=== PATIENT | male | born 1935 | race Caucasian/White ===

== ENCOUNTER 2018-07-08 19:02 | Emergency (ER) | payer OTHER ==
--- NOTE | 2018-07-08 19:46 | ER Document Report ---
ED Medical Screen (RME) - General Chief Complaint: General Weakness Stated Complaint: WEAKNESS Time Seen by Provider: 07/08/18 19:38 Notes: 82-year-old male with chief complaint of feeling weak and sluggish, also states that he is having bleeding from the penis with passage of clots, he has been doing this for some time but it has worsened recently, was diagnosed with possible tumor and stone by Dr. Reaves, urology in [place]. Denies fever, vomiting, specific area of pain. Denies focal numbness or weakness, denies headache. He is on blood thinner with Brilinta, history of CAD, hypertension, hyperlipidemia, prostate cancer. TRAVEL OUTSIDE OF THE U.S. IN LAST 30 DAYS: No - Related Data Allergies/Adverse Reactions: No Known Allergies Allergy (Unverified 07/08/18 19:04) Physical Exam - Vital signs Vitals: Temp Pulse Resp BP Pulse Ox 98.2 F 76 16 119/36 L 95 07/08/18 19:16 07/08/18 19:16 07/08/18 19:16 07/08/18 19:16 07/08/18 19:16 - General General appearance: Appears well - slightly pale, but otherwise well appearing In distress: None - Cardiovascular Rhythm: Regular. No: Extrasystoles, Tachycardia Heart sounds: Normal auscultation, S1 appreciated, S2 appreciated Murmur: Yes - Neurological Cognition: Normal Orientation: AAOx4 Jwuan Coma Scale Eye Opening: Spontaneous Juwan Coma Scale Verbal: Oriented Juwan Coma Scale Motor: Obeys Commands Juwan Coma Scale Total: 15 Speech: Normal Additional motor exam normals: Equal steam table attendant Course - Vital Signs Vital signs: Temp Pulse Resp BP Pulse Ox 98.2 F 76 16 119/36 L 95 07/08/18 19:16 07/08/18 19:16 07/08/18 19:16 07/08/18 19:16 07/08/18 19:16
--- NOTE | 2018-07-08 20:53 | RADIOLOGY REPORT (SQ) ---
EXAM DESCRIPTION: XR CHEST 1 VIEW COMPLETED DATE/TME: 07/08/2018 19:42 CLINICAL HISTORY: 82 years, Male, weakness COMPARISON: None. NUMBER OF VIEWS: One TECHNIQUE: PA view of the chest LIMITATIONS: None. FINDINGS: Cardiomediastinal silhouette is within normal limits. No lung consolidate. No pleural effusion. No pneumothorax. Vascular calcifications at the thoracic aorta. Chronic appearing right lateral 4th - 6th rib fractures. IMPRESSION: No acute chest finding. copyright 2010 [employer]- All Rights Reserved
[2018-07-08 21:10] LABS: HEMATOCRIT 16.7 % (37.9-51.0); MEAN CORPUSCULAR HEMOGLOBIN 31.8 pg (27.0-33.4); MEAN CORPUSCULAR HGB CONC 33.8 g/dL (32.0-36.0); MEAN CORPUSCULAR VOLUME 94 fl (80-97); PLATELET COUNT 358 10^3/uL (150-450); RED BLOOD COUNT 1.77 10^6/uL (4.35-5.55); RED CELL DISTRIBUTION WIDTH 15.4 % (11.5-14.0); WHITE BLOOD COUNT 10.6 10^3/uL (4.0-10.5)
[2018-07-08 21:31] LABS: ALANINE AMINOTRANSFERASE 26 U/L (21-72); ALBUMIN 3.5 g/dL (3.5-5.0); ALKALINE PHOSPHATASE 54 U/L (38-126); ANION GAP 12 (5-19); ASPARTATE AMINO TRANSFERASE 28 U/L (17-59); BILIRUBIN,DIRECT 0.2 mg/dL (0.0-0.4); BILIRUBIN,TOTAL 0.3 mg/dL (0.2-1.3); BLOOD UREA NITROGEN 38 mg/dL (7-20); CALCIUM 8.5 mg/dL (8.4-10.2); CARBON DIOXIDE 23 mmol/L (22-30); CHLORIDE 90 mmol/L (98-107); GLUCOSE 135 mg/dL (75-110); POTASSIUM 3.8 mmol/L (3.6-5.0); TOTAL PROTEIN 5.7 g/dL (6.3-8.2)
[2018-07-08 21:41] LABS: ABSOLUTE LYMPHOCYTES# (MANUAL) 2.3 10^3/uL (0.5-4.7); ABSOLUTE MONOCYTES # (MANUAL) 1.2 10^3/uL (0.1-1.4); ABSOLUTE NEUTROPHILS# (MANUAL) 7.1 10^3/uL (1.7-8.2); ANISOCYTOSIS SLIGHT; BASOPHILS % (MANUAL) 0 % (0-2); EOSINOPHILS % (MANUAL) 0 % (0-6); LYMPHOCYTES % (MANUAL) 22 % (13-45); MONOCYTES % (MANUAL) 11 % (3-13); PLATELET COMMENT ADEQUATE; SEGMENTED NEUTROPHILS % (MAN) 67 % (42-78); TOTAL CELLS COUNTED 100; TOXIC GRANULATION SLIGHT
[2018-07-08 21:43] LABS: HEMOGLOBIN 5.6 g/dL (13.5-17.0)
[2018-07-08 21:52] LABS: BILIRUBIN,URINE NEGATIVE (NEGATIVE); GLUCOSE, URINE 50 mg/dL (NEGATIVE); KETONES,URINE NEGATIVE (NEGATIVE); LEUKOCYTE ESTERASE,URINE TRACE (NEGATIVE); NITRITE,URINE NEGATIVE (NEGATIVE); PROTEIN,URINE 100 mg/dL (NEGATIVE); URINE SPECIFIC GRAVITY 1.018; UROBILINOGEN,URINE NEGATIVE mg/dL (<2.0)
[2018-07-08 21:53] LABS: COLOR,URINE RED
[2018-07-08 21:54] LABS: APPEARANCE,URINE TURBID
--- NOTE | 2018-07-08 22:02 | ER Document Report ---
ED General - General Chief Complaint: General Weakness Stated Complaint: WEAKNESS Time Seen by Provider: 07/08/18 19:38 Primary Care Provider: PATRIC HERNANDES NP [Primary Care Provider] - Follow up as needed Notes: Patient is a 82-year-old male with history of prostate cancer presents with hematuria and weakness. He had a surgery on his prostate in [place]. He then moved down here. He recently the procedure performed by Dr. Reaves at [facility]. He says they did a sounds to be cystoscopy with either biopsy or scraping in the bladder. Since then he says is been having bleeding. He is on Brilinta. He takes Brilinta due to history of coronary stents. Last stent was placed over 2 years ago. Patient is been passing large amounts of blood clots in his urine today. TRAVEL OUTSIDE OF THE [place].S. IN LAST 30 DAYS: No - Related Data Allergies/Adverse Reactions: No Known Allergies Allergy (Verified 07/08/18 19:44) Past Medical History - Social History Smoking Status: Unknown if Ever Smoked Frequency of alcohol use: None Drug Abuse: None Family History: Reviewed & Not Pertinent Patient has suicidal ideation: No Patient has homicidal ideation: No Renal/ Medical History: Denies: Hx Peritoneal Dialysis Review of Systems - Review of Systems Notes: My Normal Review Basic REVIEW OF SYSTEMS: CONSTITUTIONAL : This EENT: Denies eye, ear, throat, or mouth pain or symptoms. Denies nasal or sinus congestion. CARDIOVASCULAR: Denies chest pain. RESPIRATORY: Denies cough, cold, or chest congestion. Denies shortness of breath, difficulty breathing, or wheezing. GASTROINTESTINAL: Denies abdominal pain. Denies nausea, vomiting, or diarrhea. GENITOURINARY: Dysuria MUSCULOSKELETAL: Denies neck or back pain or joint pain or swelling. SKIN: Denies rash or skin lesions. HEMATOLOGIC : On blood thinning medication NEUROLOGICAL: Some altered mental status. Denies headache. Denies weakness or paralysis or loss of use of either side. Denies problems with gait or speech. Denies sensory or motor loss. ALL OTHER SYSTEMS REVIEWED AND NEGATIVE. Physical Exam - Vital signs Vitals: Temp Pulse Resp BP Pulse Ox 98.2 F 76 16 119/36 L 95 07/08/18 19:16 07/08/18 19:16 07/08/18 19:16 07/08/18 19:16 07/08/18 19:16 - Notes Notes: General Appearance: Well nourished, alert, cooperative, no acute distress, no obvious discomfort. Vitals: reviewed, See vital signs table. Head: no swelling or tenderness to the head Eyes: PERRL, EOMI, Conjuctiva clear Mouth: No decreasd moisture Lungs: No wheezing, No rales, No rhonci, No accessory muscle use, good air exchange bilaterally. Heart: Normal rate, Regular rythm, No murmur, no rub Abdomen: Normal BS, soft, No rigidity, No abdominal tenderness, No guarding, no rebound, no abdominal masses, no organomegaly Extremities: strength 5/5 in all extremities, good pulses in all extremities, no swelling or tenderness in the extremities, no edema. Skin: warm, dry, very pale. Neuro: speech clear, oriented x 3, normal affect, responds appropriately to q uestions. Course - Re-evaluation Re-evalutation: 07/08/18 23:47 07/09/18 00:40 07/09/18 00:40 I spoke with physician registered dental assistant rda for urology, Amanda. She agrees to accept the patient on behalf of Dr. Atwood. Family informed. Patient is receiving blood transfusions. Patient vital signs have remained stable. Transport is on his way. Patient continues to do well and is stable for transport. Dictation of this chart was performed using voice recognition software; therefore, there may be some unintended grammatical errors. - Vital Signs Vital signs: Temp Pulse Resp BP Pulse Ox 98.2 F 76 23 H 146/54 H 98 07/08/18 19:16 07/08/18 19:16 07/09/18 00:00 07/08/18 23:01 07/09/18 00:00 - Laboratory Result Diagrams: 07/08/18 20:05 07/08/18 20:05 Laboratory results interpreted by me: 07/08/18 07/08/18 07/08/18 20:05 20:05 20:05 WBC 10.6 H RBC 1.77 L Hgb 5.6 L Hct 16.7 L RDW 15.4 H Sodium 125.0 L Chloride 90 L BUN 38 H Glucose 135 H Total Protein 5.7 L Urine Protein 100 H Urine Glucose (UA) 50 H Urine Blood LARGE H Ur Leukocyte Esterase TRACE H Urine Ascorbic Acid 20 H Crossmatch 07/08/18 20:05 WBC RBC Hgb Hct RDW Sodium Chloride BUN Glucose Total Protein Urine Protein Urine Glucose (UA) Urine Blood Ur Leukocyte Esterase Urine Ascorbic Acid Crossmatch See Detail - EKG Interpretation by Me Additional EKG results interpreted by me: 07/08/18 22:01 Is reviewed and interpreted by me. EKG shows sinus rhythm with a rate of 81 bpm. She does have a left bundle branch block. DE interval is within normal range. QRS duration QT intervals are prolonged. 07/08/18 22:02 Critical Care Note - Critical Care Note Total time excluding time spent on procedures (mins): 45 Comments: Vertical care time for this patient not including time spent in procedures approximately 45 minutes due to treatment of hematuria with severe anemia and need for transfusion. Discharge - Discharge Clinical Impression: Pyuria Hematuria Qualifiers: Hematuria type: gross Qualified Code(s): R31.0 - Gross hematuria Anemia Qualifiers: Anemia type: unspecified type Qualified Code(s): D64.9 - Anemia, unspecified Condition: Stable Disposition: [facility] Referrals: PATRIC HERNANDES NP [Primary Care Provider] - Follow up as needed
[2018-07-08] MEDS ORDERED: NORMAL SALINE 250 ML IV PRN (22:10)
[2018-07-08] MEDS ORDERED: CEFTRIAXONE INJ 1000 MG VIAL IV ONE (22:15)
[2018-07-08 23:17] LABS: INTERNATIONAL RATION (INR) 1.06; PROTHROMBIN TIME 14.3 SEC (11.4-15.4)
[2018-07-08 23:18] LABS: PARTIAL THROMBOPLASTIN TIME 25.6 SEC (23.5-35.8)
[2018-07-08] MEDS ORDERED: LIDOCAINE 2% URO-JET 5 ML KIT MM ONE (23:43)
[2018-07-09 03:14] VITALS: BP 140/64
--- NOTE | 2018-07-09 20:09 | EKG REPORT ---
SEVERITY:- ABNORMAL ECG - SINUS RHYTHM LEFT BUNDLE BRANCH BLOCK : Confirmed by: Poly Briseno 09-Jul-2018 20:08:54
== END 2018-07-09 01:40 | disposition short-term general hospital (02) ==
LOC: ER 19:02
DX: N39.0 Urinary tract infection, site not specified (principal); R31.0 Gross hematuria; D64.9 Anemia, unspecified; I44.7 Left bundle-branch block, unspecified; R53.1 Weakness; R41.82 Altered mental status, unspecified; Z79.02 Long term (current) use of antithrombotics/antiplatelets; Z95.5 Presence of coronary angioplasty implant and graft; Z85.46 Personal history of malignant neoplasm of prostate; Z98.890 Other specified postprocedural states
CPT/HCPCS: 93005; 99285; 96365; 96366; 86900; 86901; 36415; 87040; 87086; 36430; 86850; 85025; 85610; 85730; 80053; 81001; 84484; 86920; 71045; 93010; P9017; P9016; J0696; A9270; J3490

== ENCOUNTER → 2018-08-09 | Outpatient (CLI) | payer OTHER ==
--- NOTE | 2018-08-10 10:11 | RADIOLOGY REPORT (SQ) ---
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 RADIONUCLIDE AND DOSE: 10 mCi F18 FDG The route of agent administration: Intravenous FASTING BLOOD SUGAR: 93 mg/dl CONTRAST TYPE AND DOSE: No CT contrast given. TECHNIQUE: Blood glucose level was verified. Above dose of FDG was injected intravenously. 2-D seg mented attenuation correction images were obtained from the base of the skull to the midthighs. Nonc ontrast CT images were obtained for attenuation correction and fusion with emission images. CT image s were performed without oral or intravenous contrast and are not sensitive for parenchymal lesions. A series of overlapping emission PET images were obtained. [facility] by the radiologist. Images stored on PACS. LIMITATIONS: None. FINDINGS: HEAD AND NECK: No areas of abnormal metabolic activity in the soft tissues of the head and neck. CHEST: No areas of abnormal metabolic activity in the chest. ABDOMEN AND PELVIS: No areas of abnormal metabolic activity in the abdomen or pelvis. Expected physi ologic activity is present in the genitourinary system and bowel. Activity in the pelvis is limited to excreted urinary activity in the bladder lumen. No focal soft tissue mass and no extension into t he pelvic tissues. PROXIMAL LOWER EXTREMITIES: No areas of abnormal metabolic activity in the soft tissues of the lower extremities. BONES: No abnormal metabolic activity in the visualized skeleton. ADDITIONAL CT FINDINGS: Colonic diverticulosis. No additional significant findings on the noncontras t CT images. OTHER: Background blood pool activity mean SUV 1.85. Background liver activity mean SUV 2.48. No ot her significant findings. IMPRESSION: UNREMARKABLE PET-CT. PATIENT WITH KNOWN MALIGNANCY OF THE BLADDER AND PREVIOUS PROSTATE CARCINOMA. ACTIVITY IN THE PELVIS IS LIMITED TO EXPECTED EXCRETED ACTIVITY WITHIN THE BLADDER LUMEN . NO FOCAL SOFT TISSUE ACTIVITY OR EVIDENCE OF LOCAL SPREAD INTO THE PELVIC TISSUES. NO EVIDENCE OF DISTANT METASTASES. TECHNICAL DOCUMENTATION: JOB ID: [id number] [employer]- All Rights Reserved Reading location - IP/workstation name: [email or web address]
== END ==
LOC: RAD 17:32
PROVIDERS: ATTEND Urology
DX: C68.0 Malignant neoplasm of urethra (principal); Z85.46 Personal history of malignant neoplasm of prostate
CPT/HCPCS: 78815; A9552

== ENCOUNTER 2018-09-28 10:13 | Emergency (ER) | payer OTHER ==
--- NOTE | 2018-09-28 10:49 | ER Document Report ---
ED Medical Screen (RME) - General Chief Complaint: Urinary Problem Stated Complaint: BLOOD IN URINE Time Seen by Provider: 09/28/18 10:42 Primary Care Provider: CELIA LOYOLA MD [Primary Care Provider] - Follow up as needed Mode of Arrival: Ambulatory Information source: Patient TRAVEL OUTSIDE OF THE U.S. IN LAST 30 DAYS: No - HPI Patient complains to provider of: HEMATURIA Notes: 09/28/18 10:48 Patient is here with complaint of hematuria. Patient has a history of bladder cancer. Is been having hematuria for the last 5 days. He denies any pain. He has passed some clots. He was able to urinate this morning, he states it was all blood, no clots. He denies any pain. He denies any chest pain or shortness of breath. He does have a history of being anemic, but states that the last time they checked his hemoglobin he was up to 11. He denies any other complaints at this time. Exam Nontoxic, no distress. Patient is very pale. Systolic murmur. Lung sounds normal. No abdominal tenderness on limited triage abdominal exam. Plan CBC, CMP, coags, urine. An initial examination was made on the patient as part of the triage process, and it was determined a more comprehensive evaluation was necessary. Initial labs were ordered and patient was transferred to another provider in the ED who assumed care and finished evaluation and plan. - Related Data Allergies/Adverse Reactions: No Known Allergies Allergy (Verified 07/08/18 19:44) Past Medical History - Social History Chew tobacco use (# tins/day): No Frequency of alcohol use: None Drug Abuse: None Renal/ Medical History: Denies: Hx Peritoneal Dialysis Physical Exam - Vital signs Vitals: Temp Pulse Resp BP Pulse Ox 97.7 F 66 22 H 158/47 H 96 09/28/18 10:25 09/28/18 10:25 09/28/18 10:09/28/18 10:25 09/28/18 10:25 Course - Vital Signs Vital signs: Temp Pulse Resp BP Pulse Ox 97.7 F 66 22 H 158/47 H 96 09/28/18 10:25 09/28/18 10:25 09/28/18 10:25 09/28/18 10:09/28/18 10:25 Doctor's Discharge - Discharge Referrals: CELIA LOYOLA MD [Primary Care Provider] - Follow up as needed
[2018-09-28 14:05] LABS: ABSOLUTE BASOPHILS # (AUTO) 0.1 10^3/uL (0.0-0.2); ABSOLUTE EOSINOPHILS # (AUTO) 0.1 10^3/uL (0.0-0.6); ABSOLUTE LYMPHOCYTES (AUTO) 1.6 10^3/uL (0.5-4.7); ABSOLUTE MONOCYTES (AUTO) 0.7 10^3/uL (0.1-1.4); ABSOLUTE NEUT (AUTO) 6.6 10^3/uL (1.7-8.2); EOSINOPHILS % (AUTO) 0.8 % (0-6); HEMATOCRIT 26.2 % (37.9-51.0); HEMOGLOBIN 8.9 g/dL (13.5-17.0); LYMPHOCYTES % (AUTO) 17.4 % (13-45); MEAN CORPUSCULAR HEMOGLOBIN 31.1 pg (27.0-33.4); MEAN CORPUSCULAR VOLUME 92 fl (80-97); MONOCYTES % (AUTO) 7.4 % (3-13); PLATELET COUNT 244 10^3/uL (150-450); RED BLOOD COUNT 2.86 10^6/uL (4.35-5.55); RED CELL DISTRIBUTION WIDTH 15.8 % (11.5-14.0); SEGMENTED NEUTROPHILS % (AUTO) 73.4 % (42-78); TOTAL CELLS COUNTED % (AUTO) 100 %
[2018-09-28 14:25] LABS: ALANINE AMINOTRANSFERASE 28 U/L (21-72); ALBUMIN 3.5 g/dL (3.5-5.0); ALKALINE PHOSPHATASE 54 U/L (38-126); ANION GAP 10 (5-19); ASPARTATE AMINO TRANSFERASE 20 U/L (17-59); BILIRUBIN,DIRECT 0.2 mg/dL (0.0-0.4); BILIRUBIN,TOTAL 0.2 mg/dL (0.2-1.3); BLOOD UREA NITROGEN 22 mg/dL (7-20); CALCIUM 9.1 mg/dL (8.4-10.2); CARBON DIOXIDE 26 mmol/L (22-30); CHLORIDE 97 mmol/L (98-107); GLUCOSE 93 mg/dL (75-110); POTASSIUM 4.6 mmol/L (3.6-5.0); SODIUM 132.6 mmol/L (137-145); TOTAL PROTEIN 6.1 g/dL (6.3-8.2)
[2018-09-28 14:37] LABS: APPEARANCE,URINE CLEAR; BILIRUBIN,URINE NEGATIVE (NEGATIVE); COLOR,URINE RED; GLUCOSE, URINE 50 mg/dL (NEGATIVE); KETONES,URINE NEGATIVE (NEGATIVE); LEUKOCYTE ESTERASE,URINE NEGATIVE (NEGATIVE); NITRITE,URINE POSITIVE (NEGATIVE); PROTEIN,URINE >=500 mg/dL (NEGATIVE); URINE SPECIFIC GRAVITY 1.009; UROBILINOGEN,URINE NEGATIVE mg/dL (<2.0)
[2018-09-28 14:49] LABS: INTERNATIONAL RATION (INR) 0.92; PARTIAL THROMBOPLASTIN TIME 27.3 SEC (23.5-35.8); PROTHROMBIN TIME 12.8 SEC (11.4-15.4)
[2018-09-28] MEDS ORDERED: CEFTRIAXONE 1 GM/D5W RTU 1 GM/50 ML RTUPB IV ONE (15:11)
--- NOTE | 2018-09-28 16:47 | ER Document Report ---
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 Nettles at [facility]. Patient presents to the emergency room with gross hematuria. He states it has been worsening over the last several days and now is having blood clots. He is able to urinate. He denies any fever or chills. Denies any abdominal pain. TRAVEL OUTSIDE OF THE U.S. IN LAST 30 DAYS: No - HPI Onset: Last week Onset/Duration: Gradual Quality of pain: No pain Severity: None Pain Level: Denies Associated symptoms: denies: Chest pain, Fever, Shortness of breath Exacerbated by: Denies Relieved by: Denies Similar symptoms previously: Yes Recently seen / treated by doctor: Yes - Related Data Allergies/Adverse Reactions: No Known Allergies Allergy (Verified 09/28/18 10:51) Past Medical History - General Information source: Patient - Social History Smoking Status: Former Smoker Cigarette use (# per day): No Chew tobacco use (# tins/day): No Frequency of alcohol use: None Drug Abuse: None Lives with: Family Family History: Reviewed & Not Pertinent Patient has suicidal ideation: No Patient has homicidal ideation: No - Past Medical History Cardiac Medical History: Reports: Hx Hypertension Renal/ Medical History: Denies: Hx Peritoneal Dialysis Past Surgical History: Reports: Hx Tonsillectomy, Hx Urinary Tract Surgery - prostate radiation, bladder stone removed Review of Systems - Review of Systems Constitutional: denies: Chills, Fever EENT: No symptoms reported Cardiovascular: denies: Chest pain, Palpitations, Heart racing Respiratory: No symptoms reported Gastrointestinal: No symptoms reported Genitourinary: See HPI Male Genitourinary: No symptoms reported Musculoskeletal: No symptoms reported Skin: No symptoms reported Hematologic/Lymphatic: No symptoms reported Neurological/Psychological: No symptoms reported Physical Exam - Vital signs Vitals: Temp Pulse Resp BP Pulse Ox 97.7 F 66 22 H 158/47 H 96 09/28/18 10:25 09/28/18 10:25 09/28/18 10:25 09/28/18 10:25 09/28/18 10:25 Notes: Physical exam: GENERAL: This is a chronically ill-appearing 82-year-old man that is alert and oriented x3 HEAD: Atraumatic, normocephalic. EYES: Pupils equal round and reactive to light, extraocular movements intact, sclera anicteric, conjunctiva are normal. ENT: TMs normal, nares patent, oropharynx clear without exudates. Moist mucous membranes. NECK: Normal range of motion, supple without obvious mass or JVD. LUNGS: Breath sounds clear to auscultation bilaterally and equal. No wheezes rales or rhonchi. HEART: Regular rate and rhythm without murmurs, rubs or gallops. ABDOMEN: Soft, normoactive bowel sounds. No tenderness to palpation. No guardi ng, no rebound. No masses appreciated. Genitalia: Patient is having gross hematuria with blood clots. Bedside ultrasound: No significant bladder dilatation EXTREMITIES: Normal range of motion, no pitting or edema. No clubbing or cyanosis. NEUROLOGICAL: Cranial nerves II through XII grossly intact. Normal speech, moving all extremities. PSYCH: Normal mood, normal affect. SKIN: Warm, Dry, normal turgor, no rashes or lesions noted. Course - Re-evaluation Re-evalutation: 09/28/18 18:31 Note: This is an 82-year-old man with a story of aortic valve stenosis, prostate cancer (remote), recent diagnosis of a malignant posterior wall of the bladder cancer that is to have resection at [facility] (Dr. Rick). Patient presented with increased bleeding over the last week. He is now having significant blood clots. He had had an episode of significant bleeding 2 months ago at which time his blood counts dropped significantly requiring transfusion. His crit is 26 at this time. Given his underlying medical issues, I think he will need to be followed closely if he continues bleeding, he may need more blood. I have discussed this with Dr. Cohen who is covering for urology at [facility] and he is agreed to accept patient in transfer. I discussed this with the family and they are agreeable. Patient is able to make urine and has no evidence of an obstructive uropathy at this point. Given this, I have chosen not to do any F oley catheter for fear that I might make the situation worse. - Vital Signs Vital signs: Temp Pulse Resp BP Pulse Ox 97.7 F 66 22 H 158/47 H 96 09/28/18 10:25 09/28/18 10:25 09/28/18 10:25 09/28/18 10:25 09/28/18 10:25 - Laboratory Result Diagrams: 09/28/18 13:51 09/28/18 13:51 Laboratory results interpreted by me: 09/28/18 09/28/18 09/28/18 13:48 13:51 13:51 RBC 2.86 L Hgb 8.9 L Hct 26.2 L RDW 15.8 H Sodium 132.6 L Chloride 97 L BUN 22 H Total Protein 6.1 L Urine Protein >=500 H Urine Glucose (UA) 50 H Urine Blood MODERATE H Urine Nitrite POSITIVE H Critical Care Note - Critical Care Note Total time excluding time spent on procedures (mins): 60 Discharge - Discharge Clinical Impression: Gross hematuria, Known bladder malignancy Condition: Serious Disposition: [facility] Referrals: CELIA LOYOLA MD [Primary Care Provider] - Follow up as needed
[2018-09-28 23:51] VITALS: BP 144/45
--- NOTE | 2018-09-28 23:59 | ER Document Report ---
Doctor's Note Notes: 09/28/18 23:59 Patient seen prior to transport to [facility] for bladder tumor and hematuria. He denies any pain. Has no acute complaints or concerns, is anxious to be transported. He is stable for transfer.
== END 2018-09-28 23:55 | disposition short-term general hospital (02) ==
LOC: ER 10:13
DX: C67.9 Malignant neoplasm of bladder, unspecified (principal); R31.0 Gross hematuria; I10 Essential (primary) hypertension; Z87.891 Personal history of nicotine dependence
CPT/HCPCS: 99291; 96365; 36415; 87086; 85025; 85610; 85730; 80053; 81001; J0696

== ENCOUNTER 2018-11-07 11:33 | Emergency (ER) | payer OTHER ==
--- NOTE | 2018-11-07 11:47 | ER Document Report ---
ED Medical Screen (RME) - General Chief Complaint: Hand Swelling Stated Complaint: RIGHT HAND/ARM SWELLING Time Seen by Provider: 11/07/18 11:42 Primary Care Provider: CELIA LOYOLA MD [Primary Care Provider] - Follow up as needed TRAVEL OUTSIDE OF THE U.S. IN LAST 30 DAYS: No - HPI Notes: 11/07/18 11:45 Patient is an 83-year-old male with a history of coronary artery disease with multiple stent placements, hypertension, bladder dysfunction who presents complaining of right forearm and wrist/hand swelling that was noticed over the last 24 hours without precipitating event or injury. Patient states that he does not have any pain associated. He has not noticed any redness. He is unable to move his hand wrist and arm without any difficulties otherwise. Denies drug allergies. He is not on any blood thinning medications. He did start Elmiron medication 2 weeks ago for his bladder and is not sure if this is associated. His doctor wanted him evaluated for possible blood clot. Denies JORGENSEN, fever, neck pain, URI, CP, SOB, Abd pain, dysuria, back pain, or rash. I have treated and performed a rapid initial assessment of this patient. A comprehensive ED assessment and evaluation of the patient, analysis of test results and completion of medical decision making process will be conducted by additional ED providers. PHYSICAL EXAMINATION: GENERAL: Well-appearing, well-nourished and in no acute distress. A&Ox4. Answers questions appropriately. Rt UE: there is mild swelling noted to the rt forearm/wrist compared to the left w/o any erythema, ecchymosis, deformity, or tenderness. Pulse 2+. N/V intact distal. FROM to passive/active. Strength 5+/5. - Related Data Allergies/Adverse Reactions: No Known Allergies Allergy (Verified 11/07/18 11:33) Past Medical History - Social History Chew tobacco use (# tins/day): No Drug Abuse: None - Past Medical History Cardiac Medical History: Reports: Hx Hypertension Renal/ Medical History: Denies: Hx Peritoneal Dialysis Past Surgical History: Reports: Hx Tonsillectomy, Hx Urinary Tract Surgery - prostate radiation, bladder stone removed Physical Exam - Vital signs Vitals: Temp Pulse Resp BP Pulse Ox 98.2 F 68 18 133/46 H 97 11/07/18 11:40 11/07/18 11:40 11/07/18 11:40 11/07/18 11:40 11/07/18 11:40 Course - Vital Signs Vital signs: Temp Pulse Resp BP Pulse Ox 98.2 F 68 18 133/46 H 97 11/07/18 11:40 11/07/18 11:40 11/07/18 11:40 11/07/18 11:40 11/07/18 11:40 Doctor's Discharge - Discharge Referrals: CELIA LOYOLA MD [Primary Care Provider] - Follow up as needed
[2018-11-07 12:31] LABS: ABSOLUTE BASOPHILS # (AUTO) 0.1 10^3/uL (0.0-0.2); ABSOLUTE EOSINOPHILS # (AUTO) 0.1 10^3/uL (0.0-0.6); ABSOLUTE MONOCYTES (AUTO) 0.5 10^3/uL (0.1-1.4); ABSOLUTE NEUT (AUTO) 4.8 10^3/uL (1.7-8.2); BASOPHILS % (AUTO) 1.2 % (0-2); EOSINOPHILS % (AUTO) 2.2 % (0-6); HEMATOCRIT 33.2 % (37.9-51.0); HEMOGLOBIN 11.2 g/dL (13.5-17.0); LYMPHOCYTES % (AUTO) 15.2 % (13-45); MEAN CORPUSCULAR HEMOGLOBIN 31.7 pg (27.0-33.4); MEAN CORPUSCULAR HGB CONC 33.7 g/dL (32.0-36.0); MEAN CORPUSCULAR VOLUME 94 fl (80-97); MONOCYTES % (AUTO) 8.3 % (3-13); PLATELET COUNT 302 10^3/uL (150-450); RED BLOOD COUNT 3.53 10^6/uL (4.35-5.55); RED CELL DISTRIBUTION WIDTH 14.6 % (11.5-14.0); SEGMENTED NEUTROPHILS % (AUTO) 73.1 % (42-78); TOTAL CELLS COUNTED % (AUTO) 100 %; WHITE BLOOD COUNT 6.5 10^3/uL (4.0-10.5)
[2018-11-07 12:34] LABS: INTERNATIONAL RATION (INR) 0.99; PROTHROMBIN TIME 13.6 SEC (11.4-15.4)
[2018-11-07 12:35] LABS: PARTIAL THROMBOPLASTIN TIME 29.7 SEC (23.5-35.8)
[2018-11-07 12:53] LABS: ANION GAP 11 (5-19); BLOOD UREA NITROGEN 21 mg/dL (7-20); CALCIUM 9.3 mg/dL (8.4-10.2); CARBON DIOXIDE 28 mmol/L (22-30); CHLORIDE 101 mmol/L (98-107); GLUCOSE 110 mg/dL (75-110); POTASSIUM 4.6 mmol/L (3.6-5.0); SODIUM 139.6 mmol/L (137-145)
--- NOTE | 2018-11-07 14:46 | RADIOLOGY REPORT (SQ) ---
EXAM DESCRIPTION: VENOUS UNILATERAL UPPER COMPLETED DATE/TIME: 11/07/2018 2:38 pm REASON FOR STUDY: Rt arm swelling COMPARISON: None. TECHNIQUE: Dynamic and static parker scale and color images acquired of the right arm venous system. S elected spectral images acquired with additional compression and augmentation maneuvers. The contrala teral subclavian vein and internal jugular vein were also imaged. Images stored on PACS. LIMITATIONS: None. FINDINGS: INTERNAL JUGULAR VEIN: Normal phasicity, compression, augmentation. No visualized echogeni c material on parker scale. No defects on color images. Comparison opposite side normal. SUBCLAVIAN VEIN: Normal compression, augmentation. No visualized echogenic material on parker scale. No defects on color images. AXILLARY VEIN: Normal compression, augmentation. No visualized echogenic material on parker scale. No d efects on color images. BRACHIAL VEIN: Normal compression, augmentation. No visualized echogenic material on parker scale. No d efects on color images. BASILIC VEIN: Normal compression, augmentation. No visualized echogenic material on parker scale. No de fects on color images. CEPHALIC VEIN: Normal compression, augmentation. No visualized echogenic material on parker scale. No d efects on color images. OTHER: No other significant finding. IMPRESSION: 1. NO EVIDENCE DVT OR SVT RIGHT ARM. TECHNICAL DOCUMENTATION: JOB ID: [id number] [employer]- All Rights Reserved Reading location - IP/workstation name: [email or web address]
--- NOTE | 2018-11-07 15:30 | ER Document Report ---
ED General - General Chief Complaint: Hand Swelling Stated Complaint: RIGHT HAND/ARM SWELLING Time Seen by Provider: 11/07/18 11:42 Primary Care Provider: CELIA LOYOLA MD [Primary Care Provider] - Follow up as needed TRAVEL OUTSIDE OF THE U.S. IN LAST 30 DAYS: No - HPI Notes: Patient is an 83-year-old male with multiple medical issues who presents to the emergency department for evaluation of swelling in his right hand and wrist. Patient's just noticed it today, the patient states he may have had it for the last several days. He denies any chest pain or shortness of breath. He denies any pain. No numbness or tingling. On further questioning he does admit to having blood drawn from the right hand about a week ago. No fevers or chills, no nausea or vomiting. He started a new medication for overactive bladder recently, they were concerned it might be from that. He has had no swelling in his mouth, tongue, pharynx. No difficulty breathing. - Related Data Allergies/Adverse Reactions: No Known Allergies Allergy (Verified 11/07/18 11:33) Past Medical History - General Information source: Patient, Relative - Social History Smoking Status: Former Smoker Chew tobacco use (# tins/day): No Drug Abuse: None Family History: Reviewed & Not Pertinent Patient has suicidal ideation: No Patient has homicidal ideation: No - Past Medical History Cardiac Medical History: Reports: Hx Coronary Artery Disease, Hx Hypertension Renal/ Medical History: Reports: Other - Overactive bladder. Denies: Hx Peritoneal Dialysis Past Surgical History: Reports: Hx Cardiac Catheterization, Hx Tonsillectomy, Hx Urinary Tract Surgery - prostate radiation, bladder stone removedComment Only: Hx Cardiac Surgery - stent x 5 Review of Systems - Review of Systems Constitutional: No symptoms reported EENT: No symptoms reported Cardiovascular: No symptoms reported Respiratory: No symptoms reported Gastrointestinal: No symptoms reported Genitourinary: No symptoms reported Musculoskeletal: See HPI Skin: No symptoms reported Neurological/Psychological: No symptoms reported Physical Exam - Vital signs Vitals: Temp Pulse Resp BP Pulse Ox 98.2 F 68 18 133/46 H 97 11/07/18 11:40 11/07/18 11:40 11/07/18 11:40 11/07/18 11:40 11/07/18 11:40 - Notes Notes: Patient is an 83-year-old male appears stated age in no acute distress. Head is normocephalic and atraumatic. Pupils are equal round, reactive to light. Oral mucosa is moist. Heart is regular rate and rhythm, lungs are clear to oscillation bilaterally. Examination of the right upper extremity yields a mild amount of swelling about the right distal forearm and hand. He has full range of motion of the shoulder, elbow, wrist, fingers, thumb. Radial pulse is 2+. Capillary refill is brisk. Sensation is intact. He does have a small puncture wound noted on the dorsum of the hand between the third and fourth metacarpals, without any significant surrounding erythema, induration. Course - Re-evaluation Re-evalutation: 11/07/18 15:28 Patient presents emergency department for evaluation. Primarily his family doctor was concerned about the possibility of a blood clot. Doppler was found to be negative. Blood work is largely unremarkable. I did discuss the possibility of medication causing this. Certainly would be atypical for medication to cause unilateral arm swelling. I find it highly unlikely that the medication is the culprit. I explained my thoughts to the patient and his . He is actually having some success with the medication itself, so I am encouraging him to continue using it. He of course will follow-up closely with Dr. Rick, his urologist at [place]. I explained to the patient that if the swelling persists he may require another Doppler. Certainly if he develops worsening or new concerning symptoms of any sort, he is to return to the ED for further evaluation. - Vital Signs Vital signs: Temp Pulse Resp BP Pulse Ox 98.2 F 68 18 133/46 H 97 11/07/18 11:40 11/07/18 11:40 11/07/18 11:40 11/07/18 11:40 11/07/18 11:40 - Laboratory Result Diagrams: 11/07/18 12:15 11/07/18 12:15 Laboratory results interpreted by me: 11/07/18 11/07/18 12:15 12:15 RBC 3.53 L Hgb 11.2 L Hct 33.2 L RDW 14.6 H BUN 21 H - Diagnostic Test Radiology reviewed: Reports reviewed Radiology results interpreted by me: 11/07/18 15:30 Venous Doppler Study 11/07/18 11:47 IMPRESSION: 1. NO EVIDENCE DVT OR SVT RIGHT ARM. Discharge - Discharge Clinical Impression: Swelling of right hand, Swelling of joint, wrist, right Condition: Stable Disposition: HOME, SELF-CARE Additional Instructions: No clear cause was found for swelling today. The Doppler was negative for any signs of blood clots. If your swelling continues, he should have another Doppler in a week for further evaluation. Return to the emergency department with worsening or new concerning symptoms of any sort. Referrals: CELIA LOYOLA MD [Primary Care Provider] - Follow up as needed
[2018-11-07 18:39] VITALS: BP 128/74
== END 2018-11-07 17:00 | disposition home or self-care (01) ==
LOC: ER 11:33
DX: M79.89 Other specified soft tissue disorders (principal); Z87.891 Personal history of nicotine dependence; I25.10 Atherosclerotic heart disease of native coronary artery without angina pectoris; I10 Essential (primary) hypertension
CPT/HCPCS: 36415; 80048; 85025; 85610; 85730; 93971; 99284

== ENCOUNTER 2018-11-14 10:51 | Emergency (ER) | payer OTHER ==
--- NOTE | 2018-11-14 11:18 | ER Document Report ---
ED Medical Screen (RME) - General Chief Complaint: Urinary Problem Stated Complaint: BLOOD IN URINE Primary Care Provider: PATRIC HERNANDES NP [Primary Care Provider] - Follow up as needed TRAVEL OUTSIDE OF THE U.S. 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 Patient was evaluated by his urologist at [place] yesterday and they did not irrigations were Banerjee catheter and sent him home. He was not sent home on a Banerjee catheter at that time. Patient states that he started having hematuria again this morning and his urologist wanted him evaluated in the emergency department. Patient states that he has needed a blood transfusion in the past. No associated pain or discomfort. He is otherwise able to eat and drink without difficulty. He is having normal bowel movements. Denies drug allergies. Denies JORGENSEN, fever, neck pain, URI, CP, SOB, Abd pain, back pain, or rash. I have treated and performed a rapid initial assessment of this patient. A comprehensive ED assessment and evaluation of the patient, analysis of test results and completion of medical decision making process will be conducted by additional ED providers. PHYSICAL EXAMINATION: GENERAL: Well-appearing, well-nourished and in no acute distress. A&Ox4. Answers questions appropriately. LUNGS: Breath sounds clear to auscultation bilaterally and equal. No wheezes rales or rhonchi. HEART: Regular rate and rhythm - Related Data Allergies/Adverse Reactions: No Known Allergies Allergy (Verified 11/07/18 11:33) Past Medical History - Past Medical History Cardiac Medical History: Reports: Hx Coronary Artery Disease, Hx Hypertension Renal/ Medical History: Denies: Hx Peritoneal Dialysis Past Surgical History: Reports: Hx Cardiac Catheterization, Hx Tonsillectomy, Hx Urinary Tract Surgery - prostate radiation, bladder stone removedComment Only: Hx Cardiac Surgery - stent x 5 Physical Exam - Vital signs Vitals: Temp Pulse Resp BP Pulse Ox 98.3 F 89 20 127/59 H 95 11/14/18 10:58 11/14/18 10:58 11/14/18 10:58 11/14/18 10:58 11/14/18 10:58 Course - Vital Signs Vital signs: Temp Pulse Resp BP Pulse Ox 98.3 F 89 20 127/59 H 95 11/14/18 10:58 11/14/18 10:58 11/14/18 10:58 11/14/18 10:58 11/14/18 10:58 Doctor's Discharge - Discharge Referrals: PATRIC HERNANDES NP [Primary Care Provider] - Follow up as needed
[2018-11-14 12:40] LABS: ABSOLUTE BASOPHILS # (AUTO) 0.1 10^3/uL (0.0-0.2); ABSOLUTE NEUT (AUTO) 9.4 10^3/uL (1.7-8.2); BASOPHILS % (AUTO) 0.6 % (0-2); EOSINOPHILS % (AUTO) 0.2 % (0-6); HEMATOCRIT 27.9 % (37.9-51.0); HEMOGLOBIN 9.6 g/dL (13.5-17.0); MEAN CORPUSCULAR HGB CONC 34.4 g/dL (32.0-36.0); MEAN CORPUSCULAR VOLUME 93 fl (80-97); MONOCYTES % (AUTO) 8.8 % (3-13); PLATELET COUNT 318 10^3/uL (150-450); RED BLOOD COUNT 2.99 10^6/uL (4.35-5.55); RED CELL DISTRIBUTION WIDTH 14.3 % (11.5-14.0); SEGMENTED NEUTROPHILS % (AUTO) 81.4 % (42-78); TOTAL CELLS COUNTED % (AUTO) 100 %; WHITE BLOOD COUNT 11.6 10^3/uL (4.0-10.5)
--- NOTE | 2018-11-14 12:50 | ER Document Report ---
ED General - General Chief Complaint: Urinary Problem Stated Complaint: BLOOD IN URINE Time Seen by Provider: 11/14/18 12:32 Primary Care Provider: PATRIC HERNANDES NP [Primary Care Provider] - Follow up as needed TRAVEL OUTSIDE OF THE U.S. IN LAST 30 DAYS: No - HPI Notes: 3-year-old male to the emergency department with complaints of gross hematuria and urinary retention. Patient states that over the weekend he developed gross hematuria and his took him to [place] where his oncologist is yesterday. A catheter was placed and he was irrigated until clear. He was told to follow-up with his urologist Dr. Rick. Patient states that he was doing well until about 430 this morning. He went to the bathroom and noticed gross hematuria again. And he has not been able to urinate since. Denies fevers, chills, nausea, vomiting, diarrhea, chest pain, shortness of breath. He has a history of bladder cancer and has had a tumor resection. He also states that he has a history of hematuria before. He was at that time on Brilinta and he was stopped from this medicine. He still takes 81 mg of aspirin daily. - Related Data Allergies/Adverse Reactions: No Known Allergies Allergy (Verified 11/07/18 11:33) Past Medical History - General Information source: Patient, Relative - Social History Smoking Status: Former Smoker Frequency of alcohol use: None Drug Abuse: None Family History: Reviewed & Not Pertinent Patient has suicidal ideation: No Patient has homicidal ideation: No - Past Medical History Cardiac Medical History: Reports: Hx Coronary Artery Disease, Hx Hypertension Renal/ Medical History: Denies: Hx Peritoneal Dialysis Past Surgical History: Reports: Hx Cardiac Catheterization, Hx Tonsillectomy, Hx Urinary Tract Surgery - prostate radiation, bladder stone removedComment Only: H x Cardiac Surgery - stent x 5 Review of Systems - Review of Systems Constitutional: denies: Chills, Fever EENT: No symptoms reported Cardiovascular: denies: Chest pain, Palpitations, Syncope, Dizziness, Lightheaded Respiratory: No symptoms reported Gastrointestinal: denies: Abdominal pain, Diarrhea, Nausea, Vomiting Genitourinary: Hematuria, Retention. denies: Frequency, Flank pain Neurological/Psychological: No symptoms reported -: Yes All other systems reviewed and negative Physical Exam - Vital signs Vitals: Temp Pulse Resp BP Pulse Ox 98.3 F 89 20 127/59 H 95 11/14/18 10:58 11/14/18 10:58 11/14/18 10:58 11/14/18 10:58 11/14/18 10:58 Interpretation: Normal - General General appearance: Appears well - chronically ill-appearing, Alert, Other - HEENT Head: Normocephalic, Atraumatic Eyes: Normal Pupils: PERRL - Respiratory Respiratory status: No respiratory distress Chest status: Nontender Breath sounds: Normal Chest palpation: Normal - Cardiovascular Rhythm: Regular Heart sounds: Normal auscultation Murmur: No - Abdominal Inspection: Normal Distension: Distended - Distended suprapubic region consistent with urinary retention Bowel sounds: Normal Tenderness: Nontender Organomegaly: No organomegaly - Back Back: No: CVA tenderness - Extremities General upper extremity: Normal inspection, Nontender, Normal color, Normal ROM, Normal temperature General lower extremity: Normal inspection, Nontender, Normal color, Normal ROM, Normal temperature, Normal weight bearing. No: Terra's sign - Neurological Neuro grossly intact: Yes Cognition: Normal Orientation: AAOx4 Harper Coma Scale Eye Opening: Spontaneous Harper Coma Scale Verbal: Oriented Harper Coma Scale Motor: Obeys Commands Juwan Coma Scale Total: 15 Speech: Normal Motor strength normal: LUE, RUE, LLE, RLE Sensory: Normal - Psychological Associated symptoms: Normal affect, Normal mood - Skin Skin Temperature: Warm Skin Moisture: Dry Skin Color: Normal Course - Vital Signs Vital signs: Temp Pulse Resp BP Pulse Ox 98 F 89 21 H 143/61 H 95 11/14/18 19:38 11/14/18 10:58 11/14/18 19:38 11/14/18 19:38 11/14/18 19:38 - Laboratory Result Diagrams: 11/14/18 12:26 11/14/18 12:26 Laboratory results interpreted by me: 11/14/18 11/14/18 11/14/18 12:26 12:26 13:58 WBC 11.6 H RBC 2.99 L Hgb 9.6 L Hct 27.9 L RDW 14.3 H Seg Neutrophils % 81.4 H Lymphocytes % 9.0 L Absolute Neutrophils 9.4 H Sodium 132.0 L Chloride 97 L BUN 37 H Glucose 111 H ALT 20 L Urine Protein >=500 H Urine Glucose (UA) 50 H Urine Blood LARGE H - Transfer of Care Notes: 11/14/18 15:43 Noted labs with a hemoglobin of 9.6. Patient has put out grossly bloody urine. But he is freely flowing into the cath back. Plan to irrigate and will call patient's urologist Dr. Yaneth Rick at [place] to discuss further management. called [place] [facility] and they will have Dr. Rick's nurse practitioner give me a return phone call. Spoke with JEREMIAH Daly -- Dr. Rick's [employer]. Discussed patient's visit to [place] last night, his worsening symptoms today, his retention. Also discussed his Hbg. Will plan to irrigate and have patient go to the clinic for a nursing visit tomorrow at 10:30 AM Unsucessful irrigation of gross hematuria and patient continues to put out gross hematuria despite hand and continuous irrigation. Will call Urology at [place] for further care/admission. Spoke with Dr. Rick, patient's Urology Onc. He states that patient needs to have surgery to help evacuate the bladder. He would like for us to place a larger partida -- a 24 if we have one and continue to irrigate. Since we do not have Urology coverage, will transfer patient to Dr. Rick's care for further management. Updated family about the plan and they agree. They accept plan for transfer. 11/14/18 19:42 transfer is here for patient to transport to [place] for further higher level of care with urology. He should not agrees to transfer. 23 Partida was placed and patient still has gross hematuria but now draining much better on a continuous irrigation. Discharge - Discharge Clinical Impression: Gross hematuria Condition: Stable Disposition: [place] Referrals: PATRIC HERNANDES NP [Primary Care Provider] - Follow up as needed
[2018-11-14] MEDS ORDERED: LIDOCAINE 2% URO-JET 5 ML KIT MM ONE ×2 (12:58→18:52)
[2018-11-14 13:10] LABS: ALANINE AMINOTRANSFERASE 20 U/L (21-72); ALBUMIN 3.8 g/dL (3.5-5.0); ALKALINE PHOSPHATASE 53 U/L (38-126); ANION GAP 9 (5-19); ASPARTATE AMINO TRANSFERASE 25 U/L (17-59); BILIRUBIN,DIRECT 0.3 mg/dL (0.0-0.4); BILIRUBIN,TOTAL 0.4 mg/dL (0.2-1.3); BLOOD UREA NITROGEN 37 mg/dL (7-20); CALCIUM 8.9 mg/dL (8.4-10.2); CARBON DIOXIDE 26 mmol/L (22-30); CHLORIDE 97 mmol/L (98-107); GLUCOSE 111 mg/dL (75-110); POTASSIUM 4.7 mmol/L (3.6-5.0); TOTAL PROTEIN 6.4 g/dL (6.3-8.2)
[2018-11-14 14:33] LABS: BILIRUBIN,URINE NEGATIVE (NEGATIVE); GLUCOSE, URINE 50 mg/dL (NEGATIVE); KETONES,URINE NEGATIVE (NEGATIVE); LEUKOCYTE ESTERASE,URINE NEGATIVE (NEGATIVE); NITRITE,URINE NEGATIVE (NEGATIVE); PROTEIN,URINE >=500 mg/dL (NEGATIVE); URINE SPECIFIC GRAVITY 1.017; UROBILINOGEN,URINE NEGATIVE mg/dL (<2.0)
[2018-11-14 14:34] LABS: APPEARANCE,URINE TURBID; COLOR,URINE RED
[2018-11-14 19:49] VITALS: BP 143/61
--- NOTE | 2018-11-14 23:31 | EKG REPORT ---
SEVERITY:- ABNORMAL ECG - SINUS RHYTHM LEFT BUNDLE BRANCH BLOCK : Confirmed by: Gayle Roberto MD 14-Nov-2018 23:30:07
== END 2018-11-14 19:45 | disposition short-term general hospital (02) ==
LOC: ER 10:51
DX: R31.0 Gross hematuria (principal); R33.9 Retention of urine, unspecified; I25.10 Atherosclerotic heart disease of native coronary artery without angina pectoris; I10 Essential (primary) hypertension; Z85.51 Personal history of malignant neoplasm of bladder; Z79.82 Long term (current) use of aspirin; Z87.891 Personal history of nicotine dependence; Z95.5 Presence of coronary angioplasty implant and graft; Z92.3 Personal history of irradiation
CPT/HCPCS: 93005; 99285; 51702; 86900; 86901; 36415; 87086; 86850; 85025; 80053; 81001; 93010; C1758; A9270; J3490

== ENCOUNTER 2019-01-23 06:07 | Day surgery (SDC) | payer OTHER ==
[~2019-01-23 06:07] MED LIST: CEFAZOLIN 1 GM/D5W RTU 1 GM/50 ML RTUPB IV ONE; CEFAZOLIN 1 GM/D5W RTU 1 GM/50 ML RTUPB IV PRN; DEXTROSE 5%-1/2 NORMAL SALINE 1,000 ML IV PRN; DIAZEPAM 5 MG TABLET ONE; DIAZEPAM 5 MG TABLET PO PRN; OXYCODONE-ACETAMINOPHEN 5-325 MG TABLET ONE; OXYCODONE-ACETAMINOPHEN 5-325 MG TABLET PO PRN
--- NOTE | 2019-01-23 06:39 | RADIOLOGY REPORT (SQ) ---
EXAM DESCRIPTION: XR CHEST 1 VIEW COMPLETED DATE/TME: 01/23/2019 06:20 CLINICAL HISTORY: 83 years, Male, preop COMPARISON: 07/08/2018 chest NUMBER OF VIEWS: 1 TECHNIQUE: Portable chest LIMITATIONS: None. FINDINGS: The heart size is normal. Atheromatous change thoracic aorta. Osteopenia. Old right rib fractures. Lungs are clear. No pneumothorax IMPRESSION: No acute cardiopulmonary process copyright 2010 [id number]- All Rights Reserved
--- NOTE | 2019-01-23 07:07 | EKG REPORT ---
SEVERITY:- ABNORMAL ECG - SINUS RHYTHM LEFT BUNDLE BRANCH BLOCK : Confirmed by: Flakito Pereira MD 23-Jan-2019 07:06:23
[2019-01-23 07:18] LABS: ABSOLUTE BASOPHILS # (AUTO) 0.1 10^3/uL (0.0-0.2); ABSOLUTE EOSINOPHILS # (AUTO) 0.2 10^3/uL (0.0-0.6); ABSOLUTE LYMPHOCYTES (AUTO) 0.9 10^3/uL (0.5-4.7); ABSOLUTE MONOCYTES (AUTO) 0.6 10^3/uL (0.1-1.4); ABSOLUTE NEUT (AUTO) 5.4 10^3/uL (1.7-8.2); BASOPHILS % (AUTO) 1.1 % (0-2); EOSINOPHILS % (AUTO) 2.9 % (0-6); HEMATOCRIT 28.6 % (37.9-51.0); HEMOGLOBIN 9.7 g/dL (13.5-17.0); MEAN CORPUSCULAR HGB CONC 33.8 g/dL (32.0-36.0); MEAN CORPUSCULAR VOLUME 89 fl (80-97); MONOCYTES % (AUTO) 8.6 % (3-13); PLATELET COUNT 367 10^3/uL (150-450); RED BLOOD COUNT 3.23 10^6/uL (4.35-5.55); RED CELL DISTRIBUTION WIDTH 16.2 % (11.5-14.0); SEGMENTED NEUTROPHILS % (AUTO) 74.4 % (42-78); TOTAL CELLS COUNTED % (AUTO) 100 %; WHITE BLOOD COUNT 7.3 10^3/uL (4.0-10.5)
[2019-01-23 07:34] LABS: ANION GAP 7 (5-19); BLOOD UREA NITROGEN 24 mg/dL (7-20); CALCIUM 9.3 mg/dL (8.4-10.2); CARBON DIOXIDE 29 mmol/L (22-30); CHLORIDE 99 mmol/L (98-107); GLUCOSE 117 mg/dL (75-110); POTASSIUM 4.2 mmol/L (3.6-5.0)
[2019-01-23] MEDS ORDERED: BACITRACIN INJ 50,000 UNIT VIAL ONE (07:55)
[2019-01-23] MEDS ORDERED: LIDOCAINE 0.5% INJ-PF (5 MG/ML) 50 ML SDV ONE (07:55)
[2019-01-23] MEDS ORDERED: MIDAZOLAM 2 MG/2 ML INJ ONE (08:10)
[2019-01-23] MEDS ORDERED: FENTANYL CITRATE INJ/PF 100 MCG/2 ML AMPUL ONE (08:10)
--- NOTE | 2019-01-23 09:58 | RADIOLOGY REPORT (SQ) ---
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 FLUOROSCOPY TIME: 0.3 MINUTES SPOT images saved to PACS. TECHNIQUE: Intra-operative images acquired during surgical procedure to evaluate progress. NUMBER OF IMAGES: 8 LIMITATIONS: None. FINDINGS: Fluoroscopy was provided for intraoperative procedure. Please refer to the operative repo rt for further discussion. IMPRESSION: IMAGE(S) OBTAINED DURING PROCEDURE. COMMENT: Quality ID 145: Final reports for procedures using fluoroscopy that document radiation exp osure indices, or exposure time and number of fluorographic images (if radiation exposure indices are not available) Please consult full operative report of the attending physician for description of the procedure. TECHNICAL DOCUMENTATION: JOB ID: [id number] [email or web address]- All Rights Reserved Reading location - IP/workstation name: [email or web address]
--- NOTE | 2019-01-23 09:58 | RADIOLOGY REPORT (SQ) ---
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 FLUOROSCOPY TIME: 0.3 MINUTES SPOT images saved to PACS. TECHNIQUE: Intra-operative images acquired during surgical procedure to evaluate progress. NUMBER OF IMAGES: 8 LIMITATIONS: None. FINDINGS: Fluoroscopy was provided for intraoperative procedure. Please refer to the operative repo rt for further discussion. IMPRESSION: IMAGE(S) OBTAINED DURING PROCEDURE. COMMENT: Quality ID 145: Final reports for procedures using fluoroscopy that document radiation exp osure indices, or exposure time and number of fluorographic images (if radiation exposure indices are not available) Please consult full operative report of the attending physician for description of the procedure. TECHNICAL DOCUMENTATION: JOB ID: [id number] [employer]- All Rights Reserved Reading location - IP/workstation name: [email or web address]
--- NOTE | 2019-01-23 09:58 | RADIOLOGY REPORT (SQ) ---
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 FLUOROSCOPY TIME: 0.3 MINUTES SPOT images saved to PACS. TECHNIQUE: Intra-operative images acquired during surgical procedure to evaluate progress. NUMBER OF IMAGES: 8 LIMITATIONS: None. FINDINGS: Fluoroscopy was provided for intraoperative procedure. Please refer to the operative repo rt for further discussion. IMPRESSION: IMAGE(S) OBTAINED DURING PROCEDURE. COMMENT: Quality ID 145: Final reports for procedures using fluoroscopy that document radiation exp osure indices, or exposure time and number of fluorographic images (if radiation exposure indices are not available) Please consult full operative report of the attending physician for description of the procedure. TECHNICAL DOCUMENTATION: JOB ID: [id number] [employer]- All Rights Reserved Reading location - IP/workstation name: [email or web address]
--- NOTE | 2019-01-23 10:16 | Discharge Summary ---
Discharge Summary (SDC) - Discharge Final Diagnosis: Bladder cancer Date of Surgery: 01/23/19 Discharge Date: 01/23/19 Condition: Poor Treatment or Instructions: Discharge home [after recovery per ASU criteria]. Diet , as tolerated, when fully awake advance as tolerated. Activities within moderation encouraged. Follow up in my office by appointment in about [1 week]. Call for appointment. Leave wounds [covered], [keep clean and dry, until office visit in 1 week]. Hold of on school/work [until evaluation in office]. Meds per med rec. Percocet. May shower [in 48 hrs], [try to keep operated area as dry as possible]. Prescriptions: Oxycodone HCl/Acetaminophen [Percocet 5-325 mg Tablet] 1 tab PO ASDIR PRN #15 tab PRN Reason: Referrals: PATRIC HERNANDES NP [Primary Care Provider] - Discharge Diet: As Tolerated Respiratory Treatments at Home: Deep Breathing/Coughing Discharge Activity: Activity As Tolerated Report the Following to Your Physician Immediately: Shortness of Breath, Unusual Bleeding
--- NOTE | 2019-01-23 10:18 | Operative Report ---
Operative Report DATE OF SURGERY: 01/23/19 PREOPERATIVE DIAGNOSIS: Bladder cancer POSTOPERATIVE DIAGNOSIS: Bladder cancer OPERATION: 1. Ultrasound evaluation and real-time access in the right internal jugular vein. 2. Insertion of Port-A-Cath via real-time access in the right internal jugular vein. 3. Angiogram and interpretation. SURGEON: JENNIFER MCINTOSH POLL CLERK: None. ANESTHESIA: Moderate Sedation TISSUE REMOVED OR ALTERED: Not applicable. COMPLICATIONS: None. ESTIMATED BLOOD LOSS: 5 mL. INTRAOPERATIVE FINDINGS: Of a satisfactory right internal jugular vein, set satisfactory position of catheter with the tip just down in the right atrium. Satisfactory postprocedure x-ray with no untoward finding. Easy egress of blood and ingress of heparinized solution. Smooth flow of contrast through the right atrium, ventricle and pulmonary outflow tract. PROCEDURE: After obtaining informed consent, the patient was taken to the [facility] and positioned supine. The [right] neck and chest were prepared with chlorhexidine and draped out with sterile linen. After the " universal timeout", in which it was verified that the patient continued to receive antibiotic, the procedure commenced. A steriley sheathed ultrasound probe was used to evaluate the [right] internal jugular vein. Local anesthesia was infiltrated adjacent to the probe. Access into the [right] internal jugular vein was obtained using a micropuncture needle, followed by micropuncture wire and then a micropuncture catheter. This was followed by introduction of a 0.035 guidewire the tip of which was placed down into the inferior vena cava . The port sites was marked , locally anesthetized and incision made. Dissection now proceeded to the deep subcutaneous subcutaneous tissues so that a pocket for the port was made. Meticulous hemostasis was secured and the catheter was tunneled between the 2 incisions. Proximally, the catheter was now positioned using a peel-away sheath. Distally the catheter was tailored to an appropriate length and then mated to the port using the contained fixating device. The port was now placed in the pocket and the catheter optimally positioned. The port was accessed with a Villareal needle and an angiogram done under digital subtraction. The findings as dictated. With adequate and satisfactory positioning, the lumen of the chamber were irrigated with heparinized solution. The wounds were now closed using interrupted 3-0 PDS to the subcutaneous tissues and a continuous subcuticular suture of 4-0 Monocryl to the skin. These are reinforced with Steri-Strips over benzoin and then dressings applied. Time: 0.3 minute. Dose: 6.41 m Gy Contrast: 5 Mls. Isovue 300. Copies of the dictated operative report for Dr. Jennifer Giraldo MD.
[2019-01-23 11:37] VITALS: BP 121/52
== END 2019-01-23 11:00 | disposition home or self-care (01) ==
LOC: CCL 06:07
PROVIDERS: ATTEND Surgery
DX: C67.2 Malignant neoplasm of lateral wall of bladder (principal); Z79.899 Other long term (current) drug therapy; Z95.5 Presence of coronary angioplasty implant and graft; I10 Essential (primary) hypertension; E78.00 Pure hypercholesterolemia, unspecified; Z85.46 Personal history of malignant neoplasm of prostate; Z79.82 Long term (current) use of aspirin
CPT/HCPCS: 36415; 85025; 80048; 36561; 76937; 77001; 71045; 93005; 93010; C1752; C1788; Q9967; J2250; J3490 ×2; J0690; A9270 ×2; J3010; J1644

== ENCOUNTER 2019-02-02 10:25 | Emergency (ER) | payer OTHER ==
[2019-02-02 12:08] LABS: ABSOLUTE BASOPHILS # (AUTO) 0.1 10^3/uL (0.0-0.2); ABSOLUTE EOSINOPHILS # (AUTO) 0.2 10^3/uL (0.0-0.6); ABSOLUTE LYMPHOCYTES (AUTO) 0.8 10^3/uL (0.5-4.7); ABSOLUTE MONOCYTES (AUTO) 0.7 10^3/uL (0.1-1.4); ABSOLUTE NEUT (AUTO) 5.9 10^3/uL (1.7-8.2); EOSINOPHILS % (AUTO) 2.5 % (0-6); HEMOGLOBIN 9.6 g/dL (13.5-17.0); LYMPHOCYTES % (AUTO) 10.3 % (13-45); MEAN CORPUSCULAR HEMOGLOBIN 29.2 pg (27.0-33.4); MEAN CORPUSCULAR HGB CONC 33.1 g/dL (32.0-36.0); MEAN CORPUSCULAR VOLUME 88 fl (80-97); MONOCYTES % (AUTO) 8.7 % (3-13); PLATELET COUNT 383 10^3/uL (150-450); RED BLOOD COUNT 3.29 10^6/uL (4.35-5.55); RED CELL DISTRIBUTION WIDTH 16.1 % (11.5-14.0); SEGMENTED NEUTROPHILS % (AUTO) 77.5 % (42-78); TOTAL CELLS COUNTED % (AUTO) 100 %; WHITE BLOOD COUNT 7.6 10^3/uL (4.0-10.5)
[2019-02-02 12:26] LABS: APPEARANCE,URINE SLIGHTLY-CLOUDY; BILIRUBIN,URINE NEGATIVE (NEGATIVE); COLOR,URINE YELLOW; GLUCOSE, URINE NEGATIVE (NEGATIVE); KETONES,URINE NEGATIVE (NEGATIVE); LEUKOCYTE ESTERASE,URINE MODERATE (NEGATIVE); NITRITE,URINE POSITIVE (NEGATIVE); PROTEIN,URINE 30 mg/dL (NEGATIVE); URINE SPECIFIC GRAVITY 1.013; UROBILINOGEN,URINE NEGATIVE mg/dL (<2.0)
[2019-02-02 12:31] LABS: ALBUMIN 3.3 g/dL (3.5-5.0); ALKALINE PHOSPHATASE 64 U/L (38-126); ANION GAP 6 (5-19); ASPARTATE AMINO TRANSFERASE 22 U/L (17-59); BILIRUBIN,DIRECT 0.3 mg/dL (0.0-0.4); BILIRUBIN,TOTAL 0.3 mg/dL (0.2-1.3); BLOOD UREA NITROGEN 18 mg/dL (7-20); CALCIUM 8.8 mg/dL (8.4-10.2); CARBON DIOXIDE 31 mmol/L (22-30); CHLORIDE 98 mmol/L (98-107); GLUCOSE 102 mg/dL (75-110); POTASSIUM 4.3 mmol/L (3.6-5.0); TOTAL PROTEIN 6.2 g/dL (6.3-8.2)
[2019-02-02 12:35] LABS: INTERNATIONAL RATION (INR) 1.13; PROTHROMBIN TIME 14.5 SEC (11.4-15.4)
[2019-02-02 12:36] LABS: PARTIAL THROMBOPLASTIN TIME 33.1 SEC (23.5-35.8)
[2019-02-02 14:21] VITALS: BP 163/57
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
== END 2019-02-02 14:20 | disposition home or self-care (01) ==
LOC: ER 10:25
DX: C67.9 Malignant neoplasm of bladder, unspecified (principal); R31.0 Gross hematuria; N48.89 Other specified disorders of penis; R39.198 Other difficulties with micturition; I25.10 Atherosclerotic heart disease of native coronary artery without angina pectoris; I10 Essential (primary) hypertension
CPT/HCPCS: 36415; 80053; 81001; 85025; 85610; 85730; 87086; 87088; 87186; 99283

== ENCOUNTER 2019-02-22 13:37 | Inpatient (IN) | payer OTHER ==
--- NOTE | 2019-02-22 14:02 | ER Document Report ---
ED Medical Screen (RME) - General Chief Complaint: Altered Mental Status Stated Complaint: ABNORMAL LABS Time Seen by Provider: 02/22/19 13:56 Primary Care Provider: PATRIC HERNANDES NP [Primary Care Provider] - Follow up as needed Mode of Arrival: Wheelchair Information source: Patient, Relative Notes: This 83-year-old male with history of bladder cancer nephrostomy tubes Port-A-Cath presents from Dr. Hinsno's office for further labs according to . Reports patient is more confused. Reports the practice sent her over here. He reports he is still urinating notes blood in it. No complaints of fever vomiting or diarrhea. Patient referral form notes stage IV bladder cancer nephrostomy tubes right tube not functioning well lethargic and confused. Rads to see if nephrostomy tube is patent properly placed I have greeted and performed a rapid initial assessment of this patient. A comprehensive ED assessment and evaluation of the patient, analysis of test results and completion of the medical decision making process will be conducted by additional ED providers. Dictation of this chart was performed using voice recognition software; therefore, there may be some unintended grammatical errors. TRAVEL OUTSIDE OF THE [place] IN LAST 30 DAYS: No - Related Data Allergies/Adverse Reactions: sulfamethoxazole [From Bactrim] Allergy (Verified 02/22/19 14:00) trimethoprim [From Bactrim] Allergy (Verified 02/22/19 14:00) Past Medical History - Past Medical History Cardiac Medical History: Reports: Hx Coronary Artery Disease - STENTS, Hx Hypertension Denies: Hx Heart Attack Pulmonary Medical History: Denies: Hx Asthma, Hx Bronchitis, Hx COPD, Hx Pneumonia Neurological Medical History: Denies: Hx Cerebrovascular Accident, Hx Seizures Renal/ Medical History: Denies: Hx Peritoneal Dialysis Musculoskeltal Medical History: Denies Hx Arthritis Past Surgical History: Reports: Hx Cardiac Catheterization, Hx Tonsillectomy, Hx Urinary Tract Surgery - prostate radiation, bladder stone removedComment Only: Hx Cardiac Surgery - stent x 5 Physical Exam - Vital signs Vitals: Temp Pulse Resp BP Pulse Ox 97.8 F 81 20 130/47 H 95 02/22/19 13:51 02/22/19 13:51 02/22/19 13:51 02/22/19 13:51 02/22/19 13:51 Course - Vital Signs Vital signs: Temp Pulse Resp BP Pulse Ox 97.8 F 81 20 130/47 H 95 02/22/19 13:51 02/22/19 13:51 02/22/19 13:51 02/22/19 13:51 02/22/19 13:51 Doctor's Discharge - Discharge Referrals: PATRIC HERNANDES NP [Primary Care Provider] - Follow up as needed
[2019-02-22 17:37] LABS: ABSOLUTE LYMPHOCYTES (AUTO) 0.7 10^3/uL (0.5-4.7); ABSOLUTE MONOCYTES (AUTO) 0.7 10^3/uL (0.1-1.4); ABSOLUTE NEUT (AUTO) 7.2 10^3/uL (1.7-8.2); BASOPHILS % (AUTO) 0.4 % (0-2); EOSINOPHILS % (AUTO) 0.4 % (0-6); HEMATOCRIT 26.4 % (37.9-51.0); HEMOGLOBIN 8.8 g/dL (13.5-17.0); LYMPHOCYTES % (AUTO) 8.4 % (13-45); MEAN CORPUSCULAR HEMOGLOBIN 29.7 pg (27.0-33.4); MEAN CORPUSCULAR HGB CONC 33.4 g/dL (32.0-36.0); MEAN CORPUSCULAR VOLUME 89 fl (80-97); MONOCYTES % (AUTO) 8.2 % (3-13); PLATELET COUNT 359 10^3/uL (150-450); RED BLOOD COUNT 2.97 10^6/uL (4.35-5.55); SEGMENTED NEUTROPHILS % (AUTO) 82.6 % (42-78); TOTAL CELLS COUNTED % (AUTO) 100 %; WHITE BLOOD COUNT 8.7 10^3/uL (4.0-10.5)
[2019-02-22 18:02] LABS: ALBUMIN 3.1 g/dL (3.5-5.0); ALKALINE PHOSPHATASE 70 U/L (38-126); ANION GAP 9 (5-19); ASPARTATE AMINO TRANSFERASE 29 U/L (17-59); BILIRUBIN,DIRECT 0.3 mg/dL (0.0-0.4); BILIRUBIN,TOTAL 0.4 mg/dL (0.2-1.3); BLOOD UREA NITROGEN 30 mg/dL (7-20); CALCIUM 8.9 mg/dL (8.4-10.2); CARBON DIOXIDE 21 mmol/L (22-30); CHLORIDE 95 mmol/L (98-107); GLUCOSE 106 mg/dL (75-110); POTASSIUM 4.9 mmol/L (3.6-5.0); TOTAL PROTEIN 5.8 g/dL (6.3-8.2)
[2019-02-22 20:00] LABS: APPEARANCE,URINE TURBID; BILIRUBIN,URINE NEGATIVE (NEGATIVE); COLOR,URINE YELLOW; GLUCOSE, URINE NEGATIVE (NEGATIVE); KETONES,URINE NEGATIVE (NEGATIVE); LEUKOCYTE ESTERASE,URINE MODERATE (NEGATIVE); NITRITE,URINE NEGATIVE (NEGATIVE); PROTEIN,URINE 30 mg/dL (NEGATIVE); URINE SPECIFIC GRAVITY 1.019; UROBILINOGEN,URINE NEGATIVE mg/dL (<2.0)
--- NOTE | 2019-02-22 20:13 | ER Document Report ---
ED General - General Chief Complaint: Altered Mental Status Stated Complaint: ABNORMAL LABS Time Seen by Provider: 02/22/19 13:56 Mode of Arrival: Wheelchair TRAVEL OUTSIDE OF THE [place] IN LAST 30 DAYS: No - HPI Notes: Patient presents with 1 week of progressive generalized weakness. Today he lost his balance fell backward his head. He takes a daily baby aspirin otherwise no blood thinners. 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 He is a patient of Dr. Hinson. He was sent to the ED by Dr. Hinson for concern of possible displacement of patient's right nephrostomy tube as it has not had as much output as the left. He also is concerned about patient being dehydrated and his generalized weakness has gotten worse over the last week. - Related Data Allergies/Adverse Reactions: sulfamethoxazole [From Bactrim] Allergy (Verified 02/22/19 14:00) trimethoprim [From Bactrim] Allergy (Verified 02/22/19 14:00) Past Medical History - General Information source: Patient, Relative - Social History Smoking Status: Former Smoker Frequency of alcohol use: None Drug Abuse: None Family History: Reviewed & Not Pertinent Patient has suicidal ideation: No Patient has homicidal ideation: No - Past Medical History Cardiac Medical History: Reports: Hx Coronary Artery Disease - STENTS, Hx Hypertension Denies: Hx Heart Attack Pulmonary Medical History: Denies: Hx Asthma, Hx Bronchitis, Hx COPD, Hx Pneumonia Neurological Medical History: Denies: Hx Cerebrovascular Accident, Hx Seizures Renal/ Medical History: Denies: Hx Peritoneal Dialysis Musculoskeletal Medical History: Denies Hx Arthritis Past Surgical History: Reports: Hx Cardiac Catheterization, Hx Tonsillectomy, Hx Urinary Tract Surgery - prostate radiation, bladder stone removedComment Only: Hx Cardiac Surgery - stent x 5 Review of Systems - Review of Systems Constitutional: See HPI EENT: No symptoms reported Cardiovascular: No symptoms reported Respiratory: No symptoms reported Gastrointestinal: No symptoms reported Genitourinary: See HPI Male Genitourinary: No symptoms reported Musculoskeletal: No symptoms reported Skin: No symptoms reported Hematologic/Lymphatic: No symptoms reported Neurological/Psychological: No symptoms reported Physical Exam - Vital signs Vitals: Temp Pulse Resp BP Pulse Ox 97.8 F 81 20 130/47 H 95 02/22/19 13:51 02/22/19 13:51 02/22/19 13:51 02/22/19 13:51 02/22/19 13:51 - General General appearance: Appears well, Alert - HEENT Head: Normocephalic, Atraumatic Eyes: Normal Conjunctiva: Normal Cornea: Normal Extraocular movements intact: Yes Pupils: PERRL - Respiratory Respiratory status: No respiratory distress Chest status: Nontender Breath sounds: Normal Chest palpation: Normal - Cardiovascular Rhythm: Regular Heart sounds: Normal auscultation Murmur: No - Abdominal Inspection: Normal Distension: No distension Bowel sounds: Normal Tenderness: Nontender - Back Back: Normal, Nontender, Other - Bilateral nephrostomy tubes with red-colored urine on the right and cloudy yellow urine on the left. Small abrasions on upper back - Extremities General upper extremity: Normal inspection, Normal ROM General lower extremity: Normal inspection, Normal ROM - Neurological Neuro grossly intact: Yes Cognition: Normal Orientation: AAOx4 Course - Re-evaluation Re-evalutation: 02/22/19 22:10 Patient will be admitted for generalized weakness, hyponatremia, acute renal injury - Vital Signs Vital signs: Temp Pulse Resp BP Pulse Ox 97.8 F 82 18 132/74 H 98 02/22/19 18:00 02/22/19 16:00 02/22/19 16:00 02/22/19 16:00 02/22/19 16:00 - Laboratory Result Diagrams: 02/22/19 17:09 02/22/19 17:09 Laboratory results interpreted by me: 02/22/19 02/22/19 02/22/19 17:09 17:09 19:39 RBC 2.97 L Hgb 8.8 L Hct 26.4 L RDW 17.0 H Lymph % (Auto) 8.4 L Seg Neutrophils % 82.6 H Sodium 125.4 L Chloride 95 L Carbon Dioxide 21 L BUN 30 H Creatinine 1.44 H Est GFR ( Amer) 57 L Est GFR (MDRD) Non-Af 47 L Total Protein 5.8 L Albumin 3.1 L Urine Protein 30 H Ur Leukocyte Esterase MODERATE H Urine Ascorbic Acid 40 H Discharge - Discharge Clinical Impression: General weakness, Hyponatremia, Acute renal injury Condition: Fair Disposition: ADMITTED INPATIENT Admitting Provider: Xavier (Hospitalist) Unit Admitted: Telemetry
--- NOTE | 2019-02-22 21:03 | RADIOLOGY REPORT (SQ) ---
EXAM DESCRIPTION: RadLex: CT HEAD WITHOUT IV CONTRAST CLINICAL HISTORY: 83 years Male; [facility] [address] TECHNIQUE: Noncontrast CT head. All CT scans at this facility use dose modulation, iterative reconstruction, and/or weight based dosing when appropriate to reduce radiation dose to as low as reasonably achievable. COMPARISON: No previous head CT. PET/CT 08/09/2018. FINDINGS: Her matter, white matter, ventricles, and cisterns are within normal limits. No acute hemorrhage or mass effect. Metallic foreign body less than 3 x 7 mm is noted at the posterior margin of the left maxillary sinus, in the pterygopalatine fossa, unchanged since 08/09/2018. No associated acute edema. Both globes are aphakic. Visualized portions of paranasal sinuses and mastoids are clear. Visualized portions of the calvarium are within normal limits. IMPRESSION: 1. No acute intracranial findings.
--- NOTE | 2019-02-22 21:08 | RADIOLOGY REPORT (SQ) ---
EXAM DESCRIPTION: XR CHEST 1 VIEW COMPLETED DATE/TME: 02/22/2019 20:03 CLINICAL HISTORY: 83 years, Male, ams COMPARISON: Prior study from 01/23/2019 NUMBER OF VIEWS: One TECHNIQUE: Single frontal view of the chest was obtained. Right IJ approach central venous port catheter tip is located within the SVC. Cardiac and mediastinal contours are stable. Patchy bibasilar airspace disease is noted. No pneumothorax. However, there may be tiny bilateral pleural effusions given the presence of slight blunting of both costophrenic sulci. LIMITATIONS: Patchy bibasilar airspace disease. Consider atelectasis or pneumonia to include aspiration. FINDINGS: IMPRESSION: copyright 2010 [employer]- All Rights Reserved
[2019-02-22] MEDS ORDERED: IPRATROPIUM/ALBUTEROL 0.5-2.5 MG/3 ML AMPUL NEB PRN (22:10)
[2019-02-23 01:20] LABS: PHOSPHORUS 3.9 mg/dL (2.5-4.5)
[2019-02-23] MEDS: NORMAL SALINE 1000 ML 1,000 ML IV PRN ×2 (01:46→10:03)
[2019-02-23] MEDS: HEPARIN SOD (PORCINE) 5,000 UNIT/ML 1 ML VIAL SUBCUT SCH ×3 (05:36→22:44)
--- NOTE | 2019-02-23 05:36 | PDOC H&P ---
History of Present Illness Admission Date/PCP: 02/22/19 22:29 PATRIC HERNANDES NP Patient complains of: Confusion History of Present Illness: MARII TAN is a 83 year old male with a past medical history of stage IV bladder cancer with bilateral nephrostomy tubes. He presents with 3 days of fatigue, confusion developing hallucinations prompting evaluation emergency room. He was recently started on Levaquin for presumed urinary tract infection. However he is without pain, fever, leukocytosis, urinalysis in the emergency room. Chest x-ray reveals bilateral atelectasis. Patient denies pain, shortness of breath nausea or vomiting. Work-up does reveal acute on chronic anemia, mild acute renal failure and hyponatremia. He is started on IV fluids and referred to the hospitalist for admission. Patient denies previous history of Levaquin. Exam otherwise reveals a nonpainful, non-erythemic swollen left leg. Past Medical History Cardiac Medical History: Reports: Coronary Artery Disease - STENTS, Hypertension Denies: Myocardial Infarction Pulmonary Medical History: Denies: Asthma, Bronchitis, Chronic Obstructive Pulmonary Disease (COPD), Pneumonia Neurological Medical History: Denies: Seizures Malignancy Medical History: Reports: Other - Stage IV bladder cancer Musculoskeltal Medical History: Denies: Arthritis Hematology: Denies: Anemia Past Surgical History Past Surgical History: Reports: Cardiac Catheterization, Tonsillectomy Social History Information Source: Patient, Relative, [facility], [facility] Records Lives with: Family Smoking Status: Former Smoker Frequency of Alcohol Use: None Hx Recreational Drug Use: No Drugs: None Hx Prescription Drug Abuse: No - Advance Directive Resuscitation Status: Full Code Family History Family History: Hypertension Parental Family History Reviewed: Yes Children Family History Reviewed: Yes Sibling(s) Family History Reviewed.: Yes Medication/Allergy Home Medications: Amlodipine Besylate [Norvasc 5 mg Tablet] 5 mg PO DAILY 11/14/18 Atorvastatin Calcium [Lipitor 20 mg Tablet] 60 mg PO QHS 11/14/18 Escitalopram Oxalate [Lexapro 10 mg Tablet] 20 mg PO DAILY 11/14/18 Hydralazine HCl [Apresoline 50 mg Tablet] 100 mg PO Q12 11/14/18 Olmesartan Medoxomil [Benicar] 40 mg PO DAILY 11/14/18 Aspirin [Lo-Dose Aspirin EC] 81 mg PO DAILY 01/20/19 Allergies/Adverse Reactions: sulfamethoxazole [From Bactrim] Allergy (Verified 02/22/19 14:00) trimethoprim [From Bactrim] Allergy (Verified 02/22/19 14:00) Review of Systems Constitutional: PRESENT: as per HPI, fatigue, weakness. ABSENT: chills, fever(s), headache(s), weight gain, weight loss Eyes: ABSENT: visual disturbances Ears: ABSENT: hearing changes Cardiovascular: ABSENT: chest pain, dyspnea on exertion, edema, orthropnea, palpitations Respiratory: ABSENT: cough, hemoptysis Gastrointestinal: ABSENT: abdominal pain, constipation, diarrhea, hematemesis, hematochezia, nausea, vomiting Genitourinary: ABSENT: dysuria, hematuria Musculoskeletal: ABSENT: joint swelling Integumentary: ABSENT: rash, wounds Neurological: PRESENT: confusion. ABSENT: abnormal gait, abnormal speech, dizziness, focal weakness, syncope Psychiatric: PRESENT: as per HPI, hallucinations. ABSENT: anxiety, depression, homidical ideation, suicidal ideation Endocrine: ABSENT: cold intolerance, heat intolerance, polydipsia, polyuria Hematologic/Lymphatic: ABSENT: easy bleeding, easy bruising Physical Exam Vital Signs: Temp Pulse Resp BP Pulse Ox 97.8 F 92 20 131/90 H 95 02/23/19 03:19 02/23/19 03:27 02/23/19 03:19 02/23/19 03:19 02/23/19 03:19 Intake & Output 02/21/19 02/22/19 02/23/19 11:59 11:59 11:59 Weight 103.2 kg General appearance: PRESENT: cooperative, mild distress, well-developed, well- nourished Head exam: PRESENT: atraumatic, normocephalic Eye exam: PRESENT: conjunctiva pink, EOMI, PERRLA. ABSENT: scleral icterus Ear exam: PRESENT: normal external ear exam Mouth exam: PRESENT: moist, tongue midline Neck exam: ABSENT: carotid bruit, JVD, lymphadenopathy, thyromegaly Respiratory exam: PRESENT: crackles, prolonged expiratory phas, symmetrical. ABSENT: rales, rhonchi, tachypnea, wheezes Cardiovascular exam: PRESENT: RRR. ABSENT: diastolic murmur, rubs, systolic murmur Pulses: PRESENT: normal dorsalis pedis pul Vascular exam: PRESENT: normal capillary refill GI/Abdominal exam: PRESENT: normal bowel sounds, soft. ABSENT: distended, guarding, mass, organolmegaly, rebound, tenderness Rectal exam: PRESENT: deferred Extremities exam: PRESENT: full ROM. ABSENT: calf tenderness, clubbing, pedal edema Neurological exam: PRESENT: alert, awake, oriented to person, oriented to place, oriented to time, oriented to situation, CN II-XII grossly intact. ABSENT: motor sensory deficit Psychiatric exam: PRESENT: appropriate affect, normal mood. ABSENT: homicidal ideation, suicidal ideation Skin exam: PRESENT: dry, intact, warm. ABSENT: cyanosis, rash Results Laboratory Results: 02/22/19 17:09 02/22/19 17:09 02/22/19 02/22/19 02/22/19 17:09 17:09 17:09 WBC 8.7 RBC 2.97 L Hgb 8.8 L Hct 26.4 L MCV 89 MCH 29.7 MCHC 33.4 RDW 17.0 H Plt Count 359 Seg Neutrophils % 82.6 H Sodium 125.4 L Potassium 4.9 Chloride 95 L Carbon Dioxide 21 L Anion Gap 9 BUN 30 H Creatinine 1.44 H Est GFR ( Amer) 57 L Glucose 106 Calcium 8.9 Phosphorus Magnesium 2.0 Total Bilirubin 0.4 AST 29 Alkaline Phosphatase 70 Total Protein 5.8 L Albumin 3.1 L Urine Color Urine Appearance Urine pH Ur Specific [place] Urine Protein Urine Glucose (UA) Urine Ketones Urine Blood Urine Nitrite Ur Leukocyte Esterase Urine WBC (Auto) Urine RBC (Auto) 02/22/19 02/23/19 19:39 00:38 WBC RBC Hgb Hct MCV MCH MCHC RDW Plt Count Seg Neutrophils % Sodium Potassium Chloride Carbon Dioxide Anion Gap BUN Creatinine Est GFR ( Amer) Glucose Calcium Phosphorus 3.9 Magnesium 2.0 Total Bilirubin AST Alkaline Phosphatase Total Protein Albumin Urine Color YELLOW Urine Appearance TURBID Urine pH 5.0 Ur Specific [place] 1.019 Urine Protein 30 H Urine Glucose (UA) NEGATIVE Urine Ketones NEGATIVE Urine Blood NEGATIVE Urine Nitrite NEGATIVE Ur Leukocyte Esterase MODERATE H Urine WBC (Auto) 24 Urine RBC (Auto) 13 Impressions: Head CT 02/22/19 20:02 IMPRESSION: 1. No acute intracranial findings. Chest X-Ray 02/22/19 20:03 IMPRESSION: copyright 2010 [facility]- All Rights Reserved Assessment and Plan - Diagnosis (1) Encephalopathy acute Is this a current diagnosis for this admission?: Yes Plan: Recent onset, unremarkable work-up, suspect Levaquin. Family members remain at bedside for delirium support. Follow-up a.m. labs (2) Acute renal injury Is this a current diagnosis for this admission?: Yes Plan: Small protein in urinalysis, IV fluid challenge, avoid nephrotoxic meds and doses, follow-up chemistry (3) General weakness Is this a current diagnosis for this admission?: Yes Plan: Possibly secondary to #1, supportive care and physical therapy eval (4) Hyponatremia Is this a current diagnosis for this admission?: Yes Plan: Possibly secondary to poor p.o. intake, follow-up chemistry (5) Bladder cancer Is this a current diagnosis for this admission?: Yes Plan: No evidence for infection, obstruction, continue supportive care if complication arise consult urology. - Time Time Spent with patient: 25-34 minutes - Inpatient Certification Medical Necessity: Need Close Monitoring Due to Risk of Patient Decompensation
[2019-02-23 07:11] LABS: ABSOLUTE LYMPHOCYTES (AUTO) 0.4 10^3/uL (0.5-4.7); ABSOLUTE MONOCYTES (AUTO) 0.5 10^3/uL (0.1-1.4); ABSOLUTE NEUT (AUTO) 7.3 10^3/uL (1.7-8.2); BASOPHILS % (AUTO) 0.5 % (0-2); EOSINOPHILS % (AUTO) 0.2 % (0-6); HEMATOCRIT 26.6 % (37.9-51.0); LYMPHOCYTES % (AUTO) 5.2 % (13-45); MEAN CORPUSCULAR HEMOGLOBIN 29.9 pg (27.0-33.4); MEAN CORPUSCULAR HGB CONC 33.9 g/dL (32.0-36.0); MEAN CORPUSCULAR VOLUME 88 fl (80-97); MONOCYTES % (AUTO) 6.5 % (3-13); PLATELET COUNT 345 10^3/uL (150-450); RED BLOOD COUNT 3.01 10^6/uL (4.35-5.55); RED CELL DISTRIBUTION WIDTH 17.1 % (11.5-14.0); SEGMENTED NEUTROPHILS % (AUTO) 87.6 % (42-78); TOTAL CELLS COUNTED % (AUTO) 100 %; WHITE BLOOD COUNT 8.4 10^3/uL (4.0-10.5)
[2019-02-23 07:43] LABS: ANION GAP 10 (5-19); BLOOD UREA NITROGEN 28 mg/dL (7-20); CALCIUM 8.6 mg/dL (8.4-10.2); CARBON DIOXIDE 19 mmol/L (22-30); CHLORIDE 97 mmol/L (98-107); GLUCOSE 118 mg/dL (75-110); POTASSIUM 4.6 mmol/L (3.6-5.0)
--- NOTE | 2019-02-23 09:11 | EKG REPORT ---
SEVERITY:- ABNORMAL ECG - SINUS RHYTHM ATRIAL PREMATURE COMPLEX LEFT BUNDLE BRANCH BLOCK : Confirmed by: Poly Briseno 23-Feb-2019 09:10:42
[2019-02-23] MEDS ORDERED: ALBUTEROL SULFATE 0.083% NEB 2.5 MG/3 ML AMPUL NEB PRN (12:25)
[2019-02-23 12:57] LABS: ARTERIAL BLOOD BASE EXCESS -4.6 mmol/L; ARTERIAL BLOOD H2CO3 1.04 mmol/L (1.05-1.35); ARTERIAL BLOOD O2 SATURATION 94.2 % (94-98); ARTERIAL BLOOD PCO2 34.6 mmHg (35-45); ARTERIAL BLOOD PH 7.38 (7.35-7.45)
[2019-02-23 13:00] LABS: ARTERIAL BLOOD FIO2 ROOM AIR
[2019-02-23] MEDS: CEFEPIME 1 GM/D5W RTU 1 GM/50 ML RTUPB IV SCH ×2 (13:08→22:26)
[2019-02-23] MEDS: IPRATROPIUM/ALBUTEROL 0.5-2.5 MG/3 ML AMPUL NEB SCH ×2 (13:43→20:47)
[2019-02-23 13:54] LABS: AMORPHOUS SEDIMENT,URINE TRACE /HPF; APPEARANCE,URINE CLOUDY; BILIRUBIN,URINE NEGATIVE (NEGATIVE); COLOR,URINE YELLOW; GLUCOSE, URINE NEGATIVE (NEGATIVE); KETONES,URINE NEGATIVE (NEGATIVE); LEUKOCYTE ESTERASE,URINE MODERATE (NEGATIVE); NITRITE,URINE NEGATIVE (NEGATIVE); PROTEIN,URINE 30 mg/dL (NEGATIVE); URINE SPECIFIC GRAVITY 1.019; UROBILINOGEN,URINE NEGATIVE mg/dL (<2.0)
--- NOTE | 2019-02-23 16:34 | RADIOLOGY REPORT (SQ) ---
EXAM DESCRIPTION: CT ABD/PELVIS WITH IV ONLY COMPLETED DATE/TIME: 02/23/2019 4:18 pm REASON FOR STUDY: ABD pain, distention, Hx bladder CA N39.0 URINARY TRACT INFECTION, SITE NOT SPECI FIED I50.9 HEART FAILURE, UNSPECIFIED R10.9 UNSPECIFIED ABDOMINAL PAIN COMPARISON: PET-CT 08/09/2018 TECHNIQUE: CT scan of the abdomen and pelvis performed using helical scanning technique with dynamic intravenous contrast injection. No oral contrast. Images reviewed with lung, soft tissue, and bone windows. Reconstructed coronal and sagittal MPR images reviewed. Delayed images for evaluation of the urinary system also acquired. All images stored on PACS. All CT scanners at this facility use dose modulation, iterative reconstruction, and/or weight based d osing when appropriate to reduce radiation dose to as low as reasonably achievable (ALARA). [facility]: Dose Right [facility]: CareDose [facility]: Dose Right [facility]: Teradose 4D [facility]: [employer] Biosystems CONTRAST TYPE AND DOSE: contrast/concentration: Isovue 350.00 mg/ml; Total Contrast Delivered: 100.0 ml; Total Saline Delivered: 72.0 ml RENAL FUNCTION: Creatinine 1.0 RADIATION DOSE: CT Rad equipment meets quality standard of care and radiation dose reduction techniq ues were employed. CTDIvol: 23.8 - 24.6 mGy. DLP: 2616 mGy-cm.. LIMITATIONS: None. FINDINGS: LOWER CHEST: Trace left, small right pleural effusions new compared to 08/09/2018. There i s mild bibasilar airspace disease likely atelectasis. Calcified aortic valve and coronary arteries. No pericardial effusion. LIVER: Normal size. No masses. No dilated ducts. SPLEEN: Normal size. No focal lesions. PANCREAS: No masses. No significant calcifications. No adjacent inflammation or peripancreatic fluid collections. Pancreatic duct not dilated. GALLBLADDER: No identified stones by CT criteria. No inflammatory changes to suggest cholecystitis. ADRENAL GLANDS: No significant masses or asymmetry. RIGHT KIDNEY AND URETER: No solid masses. No significant calcifications. No hydronephrosis or hyd roureter. Right-sided nephrostomy catheter in good positioning. LEFT KIDNEY AND URETER: No solid masses. No significant calcifications. No hydronephrosis or hydr oureter. Left-sided nephrostomy catheter in good positioning AORTA AND VESSELS: No abdominal aortic aneurysm. RETROPERITONEUM: No retroperitoneal adenopathy, hemorrhage or masses. BOWEL AND PERITONEAL CAVITY: No masses or inflammatory changes. No free fluid or peritoneal masses. Descending and sigmoid colon diverticuli without CT signs of acute diverticulitis. No bowel obstruct ion. No free air or fluid. APPENDIX: Normal. PELVIS: Markedly abnormal urinary bladder with massive bladder wall thickening. There is extension o f tumor out the leftward bladder dome into the perivesical soft tissues, best shown on coronal image 61. Seminal vesicles are enlarged and indistinct from tumor involvement. 15 mm left pelvic sidewall lymph node axial image 72. Asymmetric thickening of the inferior aspect left rectus sheath worrisom e for tumor involvement axial image 81. ABDOMINAL WALL: No masses. No hernias. BONES: Diffuse degenerative changes throughout the thoracic and lumbar spine OTHER: No other significant finding. IMPRESSION: Bilateral nephrostomy catheters are in place without hydronephrosis or hydroureter. Markedly abnormal urinary bladder and seminal vesicles. Findings worrisome for bladder tumor involve ment in the inferior aspect left rectus muscle sheath. Extravesical extension of bladder tumor into the pelvic fat over the left bladder dome. TECHNICAL DOCUMENTATION: JOB ID: [id number] Quality ID # [id number]: Final reports with documentation of one or more dose reduction techniques (e.g., Au tomated exposure control, adjustment of the mA and/or kV according to patient size, use of iterative reconstruction technique) 2010 [employer]- All Rights Reserved Reading location - IP/workstation name: [email or web address]
--- NOTE | 2019-02-23 17:49 | PDOC PROGRESS REPORT ---
Subjective Progress Note for:: 02/23/19 Subjective:: MARII TAN is a 83 year old male with a past medical history of stage IV bladder cancer with bilateral nephrostomy tubes, CAD, multiple stents, hypertension who is oriented x4 and independently ambulatory at baseline. Patient was admitted 9 07/05/2018 for Acute encephalopathy, ROSIE, and hyponatremia. Next Patient was seen on morning rounds with his present. He was alert and oriented to self, intermittently place. He is conversational and socially appro priate. When asked a simple direct question, he is able to answer appropriately, but when asked an open-ended question, he quickly becomes confused and confabulates. The patient's reports that this is been slowly worsening over the last several days despite treatment for urinary tract infecti on as an outpatient first utilizing Bactrim but then switched to Levaquin when urine culture results demonstrated resistance. The patient confirms that he does not feel well, then denies all symptoms when prompted. ROS is limited secondary to altered mental status. He does appear to be fairly comfortable and not in any acute distress at this time. No concerns per nursing. Reason For Visit: ENCEPHALOPATHY Physical Exam Vital Signs: Temp Pulse Resp BP Pulse Ox 98.3 F 83 18 123/70 94 02/23/19 11:00 02/23/19 14:00 02/23/19 13:43 02/23/19 11:00 02/23/19 13:43 Intake & Output 02/22/19 02/23/19 02/24/19 06:59 06:59 06:59 Intake Total 100 1050 Output Total 225 Balance -125 1050 Weight 100 kg General appearance: PRESENT: no acute distress, cooperative, obese, well- developed, well-nourished Head exam: PRESENT: atraumatic, normocephalic Eye exam: PRESENT: conjunctiva pink, EOMI, PERRLA. ABSENT: scleral icterus Ear exam: PRESENT: normal external ear exam Mouth exam: PRESENT: moist, tongue midline Neck exam: ABSENT: carotid bruit, JVD, lymphadenopathy, thyromegaly Respiratory exam: PRESENT: accessory muscle use, symmetrical, unlabored, wheezes. ABSENT: rales, rhonchi Cardiovascular exam: PRESENT: RRR. ABSENT: diastolic murmur, rubs, systolic murmur Pulses: PRESENT: normal dorsalis pedis pul Vascular exam: PRESENT: normal capillary refill GI/Abdominal exam: PRESENT: distended, firm, normal bowel sounds. ABSENT: guarding, mass, organolmegaly, rebound, tenderness Rectal exam: PRESENT: deferred Extremities exam: PRESENT: full ROM, +1 edema - BLE. ABSENT: calf tenderness, clubbing, pedal edema Neurological exam: PRESENT: alert, awake, oriented to person, oriented to place, CN II-XII grossly intact, other - Intermittent confusion; intermittent tremor. ABSENT: oriented to time, oriented to situation, motor sensory deficit Psychiatric exam: PRESENT: appropriate affect, normal mood. ABSENT: homicidal ideation, suicidal ideation Skin exam: PRESENT: dry, intact, pallor, warm. ABSENT: cyanosis, rash Results Laboratory Results: 02/23/19 06:50 02/23/19 06:50 02/22/19 02/22/19 02/22/19 17:09 17:09 17:09 WBC 8.7 RBC 2.97 L Hgb 8.8 L Hct 26.4 L MCV 89 MCH 29.7 MCHC 33.4 RDW 17.0 H Plt Count 359 Seg Neutrophils % 82.6 H Carbonic Acid HCO3/H2CO3 Ratio ABG pH ABG pCO2 ABG pO2 ABG HCO3 ABG O2 Saturation ABG Base Excess FiO2 Sodium 125.4 L Potassium 4.9 Chloride 95 L Carbon Dioxide 21 L Anion Gap 9 BUN 30 H Creatinine 1.44 H Est GFR ( Amer) 57 L Glucose 106 Calcium 8.9 Phosphorus Magnesium 2.0 Total Bilirubin 0.4 AST 29 Alkaline Phosphatase 70 Total Protein 5.8 L Albumin 3.1 L Urine Color Urine Appearance Urine pH Ur Specific Ragan Urine Protein Urine Glucose (UA) Urine Ketones Urine Blood Urine Nitrite Ur Leukocyte Esterase Urine WBC (Auto) Urine RBC (Auto) 02/22/19 02/23/19 02/23/19 19:39 00:38 06:50 WBC 8.4 RBC 3.01 L Hgb 9.0 L Hct 26.6 L MCV 88 MCH 29.9 MCHC 33.9 RDW 17.1 H Plt Count 345 Seg Neutrophils % 87.6 H Carbonic Acid HCO3/H2CO3 Ratio ABG pH ABG pCO2 ABG pO2 ABG HCO3 ABG O2 Saturation ABG Base Excess FiO2 Sodium Potassium Chloride Carbon Dioxide Anion Gap BUN Creatinine Est GFR ( Amer) Glucose Calcium Phosphorus 3.9 Magnesium 2.0 Total Bilirubin AST Alkaline Phosphatase Total Protein Albumin Urine Color YELLOW Urine Appearance TURBID Urine pH 5.0 Ur Specific Ragan 1.019 Urine Protein 30 H Urine Glucose (UA) NEGATIVE Urine Ketones NEGATIVE Urine Blood NEGATIVE Urine Nitrite NEGATIVE Ur Leukocyte Esterase MODERATE H Urine WBC (Auto) 24 Urine RBC (Auto) 13 02/23/19 02/23/19 02/23/19 06:50 12:45 13:13 WBC RBC Hgb Hct MCV MCH MCHC RDW Plt Count Seg Neutrophils % Carbonic Acid 1.04 L HCO3/H2CO3 Ratio 19:1 ABG pH 7.38 ABG pCO2 34.6 L ABG pO2 71.0 L ABG HCO3 20.0 ABG O2 Saturation 94.2 ABG Base Excess -4.6 FiO2 ROOM AIR Sodium 126.2 L Potassium 4.6 Chloride 97 L Carbon Dioxide 19 L Anion Gap 10 BUN 28 H Creatinine 1.07 Est GFR ( Amer) > 60 Glucose 118 H Calcium 8.6 Phosphorus Magnesium Total Bilirubin AST Alkaline Phosphatase Total Protein Albumin Urine Color YELLOW Urine Appearance CLOUDY Urine pH 5.0 Ur Specific Ragan 1.019 Urine Protein 30 H Urine Glucose (UA) NEGATIVE Urine Ketones NEGATIVE Urine Blood NEGATIVE Urine Nitrite NEGATIVE Ur Leukocyte Esterase MODERATE H Urine WBC (Auto) 9 Urine RBC (Auto) 8 02/23/19 06:50 NT-Pro-B Natriuret Pep 2130 H Impressions: Head CT 02/22/19 20:02 IMPRESSION: 1. No acute intracranial findings. Chest X-Ray 02/22/19 20:03 IMPRESSION: copyright 2010 [employer] All Rights Reserved Abdomen/Pelvis CT 02/23/19 00:00 IMPRESSION: Bilateral nephrostomy catheters are in place without hydronephrosis or hydroureter. Markedly abnormal urinary bladder and seminal vesicles. Findings worrisome for bladder tumor involvement in the inferior aspect left rectus muscle sheath. Extravesical extension of bladder tumor into the pelvic fat over the left bladder dome. Assessment and Plan - Diagnosis (1) Encephalopathy acute Is this a current diagnosis for this admission?: Yes Plan: Recent onset, unremarkable work-up, suspect Levaquin. Possibly worsened by acute CHF exacerbation, hyponatremia, and/or pain related to malignancy. Family members remain at bedside for delirium support. CT Abd/Pelvis remarkable for Bladder CA w/ inferior aspect of left rectus muscle sheath; bibasilar opacities appear to be atelectasis (PNA r/o). ABG is reassuring LFTs nml Supportive care. Fall precautions. Management of CHF as below. Management of bladder CA as below. Will continue to r/o infectious etiology (cultures pending). Minimize sedating medications. (2) Acute renal injury Is this a current diagnosis for this admission?: Yes Plan: Resolved; Cr 1.44-> 1.07 Small protein in urinalysis Continue IV fluids Avoid nephrotoxic meds and doses Monitor daily chemistry (3) General weakness Is this a current diagnosis for this admission?: Yes Plan: Possibly secondary to #1, supportive care and physical therapy eval Discharge planning is consulted. Fall precautions. (4) Hyponatremia Is this a current diagnosis for this admission?: Yes Plan: Slight improvement; NA 125.4-> 126.2 Possibly secondary to poor p.o. intake Monitor chemistries. (5) Bladder cancer Is this a current diagnosis for this admission?: Yes Plan: CT Abd/Pelvis remarkable for Bladder CA w/ inferior aspect of left rectus muscle sheath Dr. Hinson is consulted. (6) UTI (urinary tract infection) Is this a current diagnosis for this admission?: Yes Plan: Urine culture (see 02/15/2019) collected by patient's oncologist demonstrated Pseudomonas fluorescence with resistance to Bactrim. The patient had received 1 week of therapy with Bactrim and then was transitioned to Levaquin. Shortly thereafter, he began having decreased increased confusion and weakness. Laboratory work-up at Dr. Hinson's office revealed ROSIE with hyponatremia; it had been coming to the office for outpatient IV fluids. Patient continued to worsen and so was directed to the emergency department resulting in his admission. Repeat urinalysis this morning is again negative. The patient has nephrostomy tube to left leg bag with clear, yellow, urine. Nephrostomy tube to right leg bag draining dark, tea-colored, urine with sediment. Individual urine cultures for each are now pending. Blood cultures pending. The above-mentioned urine culture did show sensitivity to cefepime; therefore will start on IV cefepime until UTI can be definitively ruled out. (7) CHF (congestive heart failure) Qualifiers: Heart failure chronicity: acute Is this a current diagnosis for this admission?: Yes Plan: The patient's denies prior history of CHF, though does admit to CAD with multiple stents, MS, hypertension, and hyperlipidemia. The patient is noted to have bilateral lower extremity edema, had crackles on exam per H&P, and is noted to have increased work of breathing today. proBNP elevated to 2130; no prior results to compare to. EKG demonstrated sinus rhythm with LBBB; chronic. Echocardiogram pending. We will continue to monitor patient on continuous cardiac telemetry. Continue cardiac diet. Continue diuresis with IV furosemide 20 mg every 12 hours. Daily weights, strict I&O's - Time Time Spent with patient: 35 or more minutes Medications reviewed and adjusted accordingly: Yes Anticipated discharge: Home with Homehealth
[2019-02-23] MEDS ORDERED: (PENDING PHARMACY ID) (Guaifenesin [Mucinex] 600 MG) PO SCH (22:00)
[2019-02-23] MEDS: BUSPIRONE HCL 10 MG TABLET PO SCH (22:26)
[2019-02-23] MEDS: GUAIFENESIN 600 MG TABLET.SA PO SCH (22:26)
[2019-02-23] MEDS: FUROSEMIDE INJ/PF 20 MG/2 ML SDV IV SCH (22:26)
[2019-02-23] MEDS ORDERED: TRAZODONE HCL 50 MG TABLET PO ONE (23:00)
[2019-02-24] MEDS: HEPARIN SOD (PORCINE) 5,000 UNIT/ML 1 ML VIAL SUBCUT SCH ×3 (05:07→22:15)
[2019-02-24 05:27] LABS: ABSOLUTE LYMPHOCYTES (AUTO) 0.6 10^3/uL (0.5-4.7); ABSOLUTE MONOCYTES (AUTO) 0.6 10^3/uL (0.1-1.4); ABSOLUTE NEUT (AUTO) 6.9 10^3/uL (1.7-8.2); BASOPHILS % (AUTO) 0.5 % (0-2); EOSINOPHILS % (AUTO) 0.4 % (0-6); HEMATOCRIT 24.6 % (37.9-51.0); HEMOGLOBIN 8.2 g/dL (13.5-17.0); LYMPHOCYTES % (AUTO) 7.3 % (13-45); MEAN CORPUSCULAR HEMOGLOBIN 29.6 pg (27.0-33.4); MEAN CORPUSCULAR HGB CONC 33.5 g/dL (32.0-36.0); MEAN CORPUSCULAR VOLUME 89 fl (80-97); MONOCYTES % (AUTO) 6.8 % (3-13); PLATELET COUNT 324 10^3/uL (150-450); RED BLOOD COUNT 2.78 10^6/uL (4.35-5.55); RED CELL DISTRIBUTION WIDTH 17.2 % (11.5-14.0); TOTAL CELLS COUNTED % (AUTO) 100 %; WHITE BLOOD COUNT 8.1 10^3/uL (4.0-10.5)
[2019-02-24 05:44] LABS: ANION GAP 7 (5-19); BLOOD UREA NITROGEN 21 mg/dL (7-20); CARBON DIOXIDE 23 mmol/L (22-30); CHLORIDE 98 mmol/L (98-107); GLUCOSE 112 mg/dL (75-110); POTASSIUM 4.2 mmol/L (3.6-5.0)
[2019-02-24] MEDS: IPRATROPIUM/ALBUTEROL 0.5-2.5 MG/3 ML AMPUL NEB SCH ×2 (08:24→20:47)
--- NOTE | 2019-02-24 08:46 | XCELERA REPORT ---
[address] [place] [facility] [address] Lower Extremity Venous Evaluation Procedure: Color flow and duplex imaging of the veins of the left lower extremity as well as the right Common Femoral vein. Right Sided Venous Evaluation The right common femoral vein is fully compressible. Spontaneous and phasic flow is present in the right common femoral vein. Left Sided Venous Evaluation Normal vessel filling wall to wall, compression and augmentation as well as Colour flow down to the infrageniculate veins. Interpretation Summary No duplex evidence of DVT or obstruction in the left lower extremity nor in the right Common Femoral vein. Name: MARII TAN Age: 83 yrs Gender: Male : 1935 Patient Status: Inpatient Patient Location: [address] [place], [place] [address] Study Date: 02/23/2019 03:35 PM Reason For Study: left leg edema Ordering Physician: AZIZA NEFF Performed By: Radha Gerber : AZIAZ NEFF > David Giraldo
--- NOTE | 2019-02-24 08:54 | PDOC CONSULTATION ---
Consultation Consult Date: 02/24/19 Attending physician:: AZIZA NEFF Provider Consulted: KARMEN HAMMOND Consult reason:: Known history of locally advanced bladder cancer currently on immunotherapy History of Present Illness Admission Date/PCP: 02/23/19 12:18 PATRIC HERNANDES NP Patient complains of: Confusion, weakness, UTI History of Present Illness: MARII TAN is a 83 year old male with known history of locally advanced bladder cancer, he was not a candidate for surgery and was not a candidate for cisplatin based chemotherapy so he was referred for consideration of immunotherapy. We gave him his first cycle of immunotherapy about 2 weeks ago now. And he presented last week to our office for weekly CBC on Wednesday, and was starting to feel a little bit weaker and we started him on oral antibiotics with Bactrim. Unfortunately, when he came last week he was a little bit weaker so we decided to do a urine culture and this indicated a Pseudomonas species that was not sensitive to Bactrim. We sent in Levaquin but they were not able to spanish moss picker the prescription until Wednesday or Wednesday of this week and started on the Levaquin. 48 hours prior to admission he started getting more and more confused, having some fevers at home and he was febrile in our office when we saw him on Wednesday. He had been getting hydration daily as well. Ultimately we decided to admit him, here he was found to have the right nephrostomy tube with bloody output, and cloudy, the left nephrostomy tube looked clean and intact and appropriate. Cultures were sent. Patient was started on broad- spectrum antibiotics. CT of the abdomen pelvis was done and overall per my view he has stable disease. The nephrostomy tubes look appropriate and in place. Past Medical History Cardiac Medical History: Reports: Coronary Artery Disease - STENTS, Hypertension Denies: Myocardial Infarction Pulmonary Medical History: Denies: Asthma, Bronchitis, Chronic Obstructive Pulmonary Disease (COPD), Pneumonia Neurological Medical History: Denies: Seizures Malignancy Medical History: Reports: Other - Stage IV bladder cancer Musculoskeltal Medical History: Denies: Arthritis Hematology: Denies: Anemia Past Surgical History Past Surgical History: Reports: Cardiac Catheterization, Tonsillectomy Social History Information Source: Patient Lives with: Family Smoking Status: Former Smoker Frequency of Alcohol Use: None Hx Recreational Drug Use: No Drugs: None Hx Prescription Drug Abuse: No - Advance Directive Resuscitation Status: Full Code Family History Family History: Hypertension Parental Family History Reviewed: Yes Children Family History Reviewed: Yes Sibling(s) Family History Reviewed.: Yes Medication/Allergy Home Medications: Albuterol Sulfate [Proair Hfa Inhalation Aerosol 8.5 gm Mdi] 1 puff IH QIDP PRN 02/23/19 Amlodipine Besylate [Norvasc 5 mg Tablet] 5 mg PO DAILY 02/23/19 Ascorbic Acid [Vitamin C 500 mg Tablet] 1,000 mg PO DAILY 02/23/19 Aspirin [Ecotrin 81 mg EC Tablet] 81 mg PO DAILY 02/23/19 Atorvastatin Calcium [Lipitor 20 mg Tablet] 20 mg PO QHS 02/23/19 Calcium Carbonate/Vitamin D3 [Caltrate 600 + D Tablet] 1 tab PO DAILY 02/23/19 Cholecalciferol (Vitamin D3) [Vitamin D3 1000 Unit Tablet] 1,000 unit PO DAILY 02/23/19 Denosumab [Prolia 60 mg/ml Syr 1 ml] 60 mg SUBCUT [id number] 02/23/19 Docusate Sodium [Colace 100 mg Capsule] 100 mg PO BIDP PRN 02/23/19 Escitalopram Oxalate [Lexapro 10 mg Tablet] 20 mg PO DAILY 02/23/19 Guaifenesin [Mucinex] 600 mg PO Q12 02/23/19 Hydralazine HCl [Apresoline 50 mg Tablet] 100 mg PO Q12 02/23/19 L.acidoph,Paracasei, B.lactis [Probiotic] 1 each PO DAILY 02/23/19 Multivitamin [Tab-A-Josesito (Multiple Vitamin) Tablet] 1 tab PO DAILY 02/23/19 Nitroglycerin [Nitrostat 0.4 mg (1/150 Gr) Tabs 25/Bottle] 1 tab SL Q5MP PRN 02/23/19 Olmesartan Medoxomil [Benicar] 40 mg PO DAILY 02/23/19 Ubidecarenone [Co Q-10] 200 mg PO QHS 02/23/19 Vitamin B Complex [B Complex] 1 each PO DAILY 02/23/19 Allergies/Adverse Reactions: sulfamethoxazole [From Bactrim] Allergy (Verified 02/22/19 14:00) trimethoprim [From Bactrim] Allergy (Verified 02/22/19 14:00) Review of Systems ROS unobtainable: Due to mental status Physical Exam Vital Signs: Temp Pulse Resp BP Pulse Ox 97.8 F 83 18 149/66 H 93 02/24/19 07:16 02/24/19 08:24 02/24/19 08:24 02/24/19 07:16 02/24/19 08:24 Intake & Output 02/23/19 02/24/19 02/25/19 06:59 06:59 06:59 Intake Total 100 2700 Output Total 225 1000 Balance -125 1700 Weight 100 kg 100.5 kg General appearance: PRESENT: no acute distress, well-developed, well-nourished Head exam: PRESENT: atraumatic, normocephalic Eye exam: PRESENT: conjunctiva pink, EOMI, PERRLA. ABSENT: scleral icterus Ear exam: PRESENT: normal external ear exam Mouth exam: PRESENT: moist, tongue midline Neck exam: ABSENT: carotid bruit, JVD, lymphadenopathy, thyromegaly Respiratory exam: PRESENT: clear to auscultation kamlesh. ABSENT: rales, rhonchi, wheezes Cardiovascular exam: PRESENT: RRR. ABSENT: diastolic murmur, rubs, systolic murmur Pulses: PRESENT: normal dorsalis pedis pul Vascular exam: PRESENT: normal capillary refill GI/Abdominal exam: PRESENT: normal bowel sounds, soft. ABSENT: distended, guarding, mass, organolmegaly, rebound, tenderness Rectal exam: PRESENT: deferred Extremities exam: PRESENT: full ROM. ABSENT: calf tenderness, clubbing, pedal edema Neurological exam: PRESENT: alert, awake, oriented to person, oriented to place, oriented to time, oriented to situation, CN II-XII grossly intact. ABSENT: motor sensory deficit Psychiatric exam: PRESENT: appropriate affect, normal mood. ABSENT: homicidal ideation, suicidal ideation Skin exam: PRESENT: dry, intact, warm. ABSENT: cyanosis, rash Results Laboratory Results: 02/24/19 04:10 02/24/19 04:10 02/23/19 02/23/19 02/24/19 12:45 13:13 04:10 WBC 8.1 RBC 2.78 L Hgb 8.2 L Hct 24.6 L MCV 89 MCH 29.6 MCHC 33.5 RDW 17.2 H Plt Count 324 Seg Neutrophils % 85.0 H Carbonic Acid 1.04 L HCO3/H2CO3 Ratio 19:1 ABG pH 7.38 ABG pCO2 34.6 L ABG pO2 71.0 L ABG HCO3 20.0 ABG O2 Saturation 94.2 ABG Base Excess -4.6 FiO2 ROOM AIR Sodium Potassium Chloride Carbon Dioxide Anion Gap BUN Creatinine Est GFR ( Amer) Glucose Calcium TSH Urine Color YELLOW Urine Appearance CLOUDY Urine pH 5.0 Ur Specific Ponce 1.019 Urine Protein 30 H Urine Glucose (UA) NEGATIVE Urine Ketones NEGATIVE Urine Blood NEGATIVE Urine Nitrite NEGATIVE Ur Leukocyte Esterase MODERATE H Urine WBC (Auto) 9 Urine RBC (Auto) 8 02/24/19 02/24/19 04:10 04:10 WBC RBC Hgb Hct MCV MCH MCHC RDW Plt Count Seg Neutrophils % Carbonic Acid HCO3/H2CO3 Ratio ABG pH ABG pCO2 ABG pO2 ABG HCO3 ABG O2 Saturation ABG Base Excess FiO2 Sodium 128.3 L Potassium 4.2 Chloride 98 Carbon Dioxide 23 Anion Gap 7 BUN 21 H Creatinine 0.90 Est GFR ( Amer) > 60 Glucose 112 H Calcium 8.0 L TSH 2.11 Urine Color Urine Appearance Urine pH Ur Specific Ponce Urine Protein Urine Glucose (UA) Urine Ketones Urine Blood Urine Nitrite Ur Leukocyte Esterase Urine WBC (Auto) Urine RBC (Auto) 02/23/19 06:50 NT-Pro-B Natriuret Pep 2130 H Impressions: Head CT 02/22/19 20:02 IMPRESSION: 1. No acute intracranial findings. Chest X-Ray 02/22/19 20:03 IMPRESSION: copyright 2010 [employer]- All Rights Reserved Abdomen/Pelvis CT 02/23/19 00:00 IMPRESSION: Bilateral nephrostomy catheters are in place without hydronephrosis or hydroureter. Markedly abnormal urinary bladder and seminal vesicles. Findings worrisome for bladder tumor involvement in the inferior aspect left rectus muscle sheath. Extravesical extension of bladder tumor into the pelvic fat over the left bladder dome. Status: Image reviewed by me Assessment & Plan - Diagnosis (1) UTI (urinary tract infection) Qualifiers: Urinary tract infection type: acute pyelonephritis Qualified Code(s): N10 - Acute pyelonephritis Is this a current diagnosis for this admission?: Yes Plan: Probably presented with the pyelonephritis, continue with antibiotics, await final cultures. (2) Encephalopathy acute Is this a current diagnosis for this admission?: Yes Plan: Multifactorial probably secondary to infection in some part secondary to the cancer. CT the head negative for any metastasis. Continue with current therapy hopefully it will improve with treating the underlying condition. (3) Acute renal injury Is this a current diagnosis for this admission?: Yes Plan: Secondary to infection most likely, also partly secondary to the cancer, will follow. (4) Bladder cancer Qualifiers: Bladder location: posterior wall Qualified Code(s): C67.4 - Malignant neoplasm of posterior wall of bladder Is this a current diagnosis for this admission?: Yes Plan: Would like to continue with immunotherapy as an outpatient, will follow closely, had a long discussion with patient and family about this. - Time Time Spent: Greater than 70 Minutes - Inpatient Certification Based on my medical assessment, after consideration of the patient's comorbidities, presenting symptoms, or acuity I expect that the services needed warrant INPATIENT care.: Yes I certify that my determination is in accordance with my understanding of Medicare's requirements for reasonable and necessary INPATIENT services [42 CFR 412.3e].: Yes Medical Necessity: Need For IV Fluids, Need For Continuous Telemetry Monitoring, Need for IV Antibiotics, Risk of Complication if Not Cared For in Hospital
[2019-02-24] MEDS: CEFEPIME 1 GM/D5W RTU 1 GM/50 ML RTUPB IV SCH ×2 (09:43→22:15)
[2019-02-24] MEDS: FUROSEMIDE INJ/PF 20 MG/2 ML SDV IV SCH ×2 (09:48→22:14)
[2019-02-24] MEDS: AMLODIPINE BESYLATE 5 MG TABLET PO SCH (09:54)
[2019-02-24] MEDS: GUAIFENESIN 600 MG TABLET.SA PO SCH ×2 (09:54→22:15)
[2019-02-24] MEDS: ASPIRIN 81 MG TABLET, ENT COATED PO SCH (09:54)
[2019-02-24] MEDS: LACTOBACILLUS ACIDOPHILUS 250 MG TAB PO SCH (09:54)
[2019-02-24] MEDS ORDERED: (PENDING PHARMACY ID) (L.Acidoph,Paracasei, B.Lactis [Probiotic] 1 EACH) PO SCH (10:00)
[2019-02-24] MEDS ORDERED: GUAIFENESIN/CODEINE PHOS 100-10 MG/ 5 ML UDC PO PRN (18:30)
--- NOTE | 2019-02-24 18:30 | PDOC PROGRESS REPORT ---
Subjective Progress Note for:: 02/24/19 Subjective:: MARII TAN is a 83 year old male with a past medical history of stage IV bladder cancer with bilateral nephrostomy tubes, CAD, multiple stents, hypertension who is oriented x4 and independently ambulatory at baseline. Patient was admitted 9 07/05/2018 for Acute encephalopathy, ROSIE, and hyponatremia. Next Patient was seen on morning rounds with his present. He is lethargic, but wakes easily; oriented to self and place. He is conversational and socially appropriate. He quickly falls back to sleep during conversation pauses. reports that he seems much improved today. ROS is limited secondary to altered mental status. denies any report of chest pain, dyspnea, abdominal pain, nausea/vomiting. He has been tolerating 25-50% of meals. He does appear to be comfortable and not in any acute distress at this time. Patient and have no questions or concerns at this time. Reason For Visit: ENCEPHALOPATHY Physical Exam Vital Signs: Temp Pulse Resp BP Pulse Ox 98.5 F 78 18 141/64 H 96 02/24/19 15:11 02/24/19 15:11 02/24/19 15:11 02/24/19 15:11 02/24/19 15:11 Intake & Output 02/23/19 02/24/19 02/25/19 06:59 06:59 06:59 Intake Total 100 2700 650 Output Total 225 1000 1300 Balance -125 1700 -650 Weight 100 kg 100.5 kg General appearance: PRESENT: no acute distress, cooperative, well-developed, well-nourished - overweight Head exam: PRESENT: atraumatic, normocephalic Eye exam: PRESENT: conjunctiva pink, EOMI, PERRLA. ABSENT: scleral icterus Ear exam: PRESENT: normal external ear exam Mouth exam: PRESENT: moist, tongue midline Neck exam: ABSENT: carotid bruit, JVD, lymphadenopathy, thyromegaly Respiratory exam: PRESENT: symmetrical, unlabored, wheezes - ? upper airway/oral; only noted when sleeping. ABSENT: rales, rhonchi Cardiovascular exam: PRESENT: RRR, +S1, +S2. ABSENT: diastolic murmur, rubs, systolic murmur Pulses: PRESENT: normal dorsalis pedis pul Vascular exam: PRESENT: normal capillary refill GI/Abdominal exam: PRESENT: normal bowel sounds, soft. ABSENT: distended, guarding, mass, organolmegaly, rebound, tenderness Rectal exam: PRESENT: deferred Gentrourinary exam: PRESENT: other - Bilateral nephrostomy tubes Extremities exam: PRESENT: full ROM. ABSENT: calf tenderness, clubbing, pedal edema Neurological exam: PRESENT: alert, awake, oriented to person, oriented to place, oriented to situation, CN II-XII grossly intact, other - Intermittent confusion. ABSENT: oriented to time, motor sensory deficit Psychiatric exam: PRESENT: appropriate affect, normal mood. ABSENT: homicidal ideation, suicidal ideation Skin exam: PRESENT: dry, intact, warm. ABSENT: cyanosis, rash Results Laboratory Results: 02/24/19 04:10 02/24/19 04:10 02/24/19 02/24/19 02/24/19 04:10 04:10 04:10 WBC 8.1 RBC 2.78 L Hgb 8.2 L Hct 24.6 L MCV 89 MCH 29.6 MCHC 33.5 RDW 17.2 H Plt Count 324 Seg Neutrophils % 85.0 H Sodium 128.3 L Potassium 4.2 Chloride 98 Carbon Dioxide 23 Anion Gap 7 BUN 21 H Creatinine 0.90 Est GFR ( Amer) > 60 Glucose 112 H Calcium 8.0 L TSH 2.11 02/22/19 19:39 Nephrostomy - Not Specified Urine Culture - Final NO GROWTH 2 DAYS 02/23/19 06:50 NT-Pro-B Natriuret Pep 2130 H Impressions: Head CT 02/22/19 20:02 IMPRESSION: 1. No acute intracranial findings. Chest X-Ray 02/22/19 20:03 IMPRESSION: copyright 2011 [employer]- All Rights Reserved Abdomen/Pelvis CT 02/23/19 00:00 IMPRESSION: Bilateral nephrostomy catheters are in place without hydronephrosis or hydroureter. Markedly abnormal urinary bladder and seminal vesicles. Findings worrisome for bladder tumor involvement in the inferior aspect left rectus muscle sheath. Extravesical extension of bladder tumor into the pelvic fat over the left bladder dome. Assessment and Plan - Diagnosis (1) Encephalopathy acute Is this a current diagnosis for this admission?: Yes Plan: Slight improvement today; tremor is resolved, lethargic but wakes easily. He is alert and oriented to self, place, situation though with continued intermittent confusion. reports that he seems somewhat better today. Recent onset, unremarkable work-up, suspect Levaquin. Possibly worsened by acute CHF exacerbation, ROSIE, hyponatremia, and/or pain related to malignancy. Family members remain at bedside for delirium support. CT Abd/Pelvis remarkable for Bladder CA w/ inferior aspect of left rectus muscle sheath; bibasilar opacities appear to be atelectasis (PNA r/o). ABG is reassuring LFTs nml Supportive care. Fall precautions. Management of CHF as below. Management of bladder CA as below. Will continue to r/o infectious etiology (cultures pending); empirically treating for urinary tract infection related to outpatient urinalysis and culture results medially prior to admission. Minimize sedating medications. Will consider MRI of the brain tomorrow if he does not demonstrate continued improvement to evaluate for metastatic disease. (2) Acute renal injury Is this a current diagnosis for this admission?: Yes Plan: Resolved; Cr 1.44-> 1.07-> 0.90 Sodium, chloride, bicarb, BUN all improved. Small protein in urinalysis Continue to optimize cardiac output Avoid nephrotoxic meds and doses Monitor daily chemistry (3) General weakness Is this a current diagnosis for this admission?: Yes Plan: Possibly secondary to #1 Supportive care. Physical therapy consultation. Discharge planning is consulted. Fall precautions. (4) Hyponatremia Is this a current diagnosis for this admission?: Yes Plan: Improved; NA 125.4-> 126.2-> 128.3 Possibly secondary to poor p.o. intake, complicated by CHF exacerbation resulting in fluid volume overload Continue IV furosemide as below Monitor chemistries. (5) Bladder cancer Qualifiers: Bladder location: posterior wall Qualified Code(s): C67.4 - Malignant neoplasm of posterior wall of bladder Is this a current diagnosis for this admission?: Yes Plan: CT Abd/Pelvis remarkable for Bladder CA w/ inferior aspect of left rectus muscle sheath Dr. Hinson is consulted. (6) UTI (urinary tract infection) Qualifiers: Urinary tract infection type: acute pyelonephritis Qualified Code(s): N10 - Acute pyelonephritis Is this a current diagnosis for this admission?: Yes Plan: Urine culture (see 02/15/2019) collected by patient's oncologist demonstrated Pseudomonas fluorescence with resistance to Bactrim. The patient had received 1 week of therapy with Bactrim and then was transitioned to Levaquin. Shortly thereafter, he began having increased confusion and weakness. Laboratory work-up at Dr. Hinson's office revealed ROSIE with hyponatremia; patient had been coming to the office for outpatient IV fluids. Patient continued to worsen and so was directed to the emergency department resulting in his admission. Repeat urinalysis on admission negative. The patient has nephrostomy tube to left leg bag with clear, yellow, urine. Nephrostomy tube to right leg bag draining dark, tea-colored, urine with sediment; improved appearance today. Individual urine cultures for each are now negative at 24 hours. Blood cultures negative at 48 hours. The above-mentioned outpatient urine culture did show sensitivity to cefepime; continue IV cefepime. Day #2 (7) CHF (congestive heart failure) Qualifiers: Heart failure chronicity: acute Is this a current diagnosis for this admission?: Yes Plan: The patient's denies prior history of CHF, though does admit to CAD with multiple stents, [place], hypertension, and hyperlipidemia. The patient is noted to have bilateral lower extremity edema, had crackles on exam per H&P, and is noted to have increased work of breathing today. proBNP elevated to 2130; no prior results to compare to. EKG demonstrated sinus rhythm with LBBB; chronic. Echocardiogram pending. We will continue to monitor patient on continuous cardiac telemetry. Continue cardiac diet. Continue diuresis with IV furosemide 20 mg every 12 hours. Daily weights, strict I&O's - Time Time Spent with patient: 25-34 minutes Medications reviewed and adjusted accordingly: Yes Anticipated discharge: Home with Homehealth
[2019-02-24] MEDS: NYSTATIN CREAM 15 GM TP SCH (19:00)
[2019-02-24] MEDS: TRAZODONE HCL 50 MG TABLET PO SCH (22:15)
[2019-02-24] MEDS: BUSPIRONE HCL 10 MG TABLET PO SCH (22:15)
[2019-02-25] MEDS: HEPARIN SOD (PORCINE) 5,000 UNIT/ML 1 ML VIAL SUBCUT SCH ×3 (05:11→22:11)
[2019-02-25 05:24] LABS: HEMATOCRIT 26.7 % (37.9-51.0); HEMOGLOBIN 8.9 g/dL (13.5-17.0); MEAN CORPUSCULAR HEMOGLOBIN 29.8 pg (27.0-33.4); MEAN CORPUSCULAR HGB CONC 33.2 g/dL (32.0-36.0); MEAN CORPUSCULAR VOLUME 90 fl (80-97); PLATELET COUNT 314 10^3/uL (150-450); RED BLOOD COUNT 2.98 10^6/uL (4.35-5.55); RED CELL DISTRIBUTION WIDTH 17.9 % (11.5-14.0); WHITE BLOOD COUNT 8.2 10^3/uL (4.0-10.5)
[2019-02-25 05:36] LABS: ANION GAP 5 (5-19); BLOOD UREA NITROGEN 17 mg/dL (7-20); CARBON DIOXIDE 26 mmol/L (22-30); CHLORIDE 99 mmol/L (98-107); GLUCOSE 110 mg/dL (75-110); POTASSIUM 4.1 mmol/L (3.6-5.0)
[2019-02-25] MEDS: IPRATROPIUM/ALBUTEROL 0.5-2.5 MG/3 ML AMPUL NEB SCH ×2 (08:42→20:52)
[2019-02-25] MEDS: CEFEPIME 1 GM/D5W RTU 1 GM/50 ML RTUPB IV SCH ×2 (10:37→22:12)
[2019-02-25] MEDS: ASPIRIN 81 MG TABLET, ENT COATED PO SCH (10:38)
[2019-02-25] MEDS: GUAIFENESIN 600 MG TABLET.SA PO SCH ×2 (10:38→22:12)
[2019-02-25] MEDS: AMLODIPINE BESYLATE 5 MG TABLET PO SCH (10:38)
[2019-02-25] MEDS: LACTOBACILLUS ACIDOPHILUS 250 MG TAB PO SCH (10:38)
[2019-02-25] MEDS: FUROSEMIDE INJ/PF 20 MG/2 ML SDV IV SCH ×2 (10:39→22:11)
[2019-02-25] MEDS: NYSTATIN CREAM 15 GM TP SCH ×2 (10:39→17:52)
--- NOTE | 2019-02-25 11:42 | PDOC PROGRESS REPORT ---
Subjective Progress Note for:: 02/25/19 Subjective:: Patient is now oriented again, he looks like he did prior to initiation of therapy, seems to be doing better and family seems motivated to continue with therapy. Physical therapy planned for today. Reason For Visit: ENCEPHALOPATHY Physical Exam Vital Signs: Temp Pulse Resp BP Pulse Ox 97.7 F 85 16 153/49 H 95 02/25/19 07:56 02/25/19 08:42 02/25/19 08:42 02/25/19 07:56 02/25/19 08:42 Intake & Output 02/24/19 02/25/19 02/26/19 06:59 06:59 06:59 Intake Total 2700 700 50 Output Total 1000 2400 Balance 1700 -1700 50 Weight 100.5 kg 100.5 kg General appearance: PRESENT: no acute distress, well-developed, well-nourished Head exam: PRESENT: atraumatic, normocephalic Eye exam: PRESENT: conjunctiva pink, EOMI, PERRLA. ABSENT: scleral icterus Ear exam: PRESENT: normal external ear exam Mouth exam: PRESENT: moist, tongue midline Neck exam: ABSENT: carotid bruit, JVD, lymphadenopathy, thyromegaly Respiratory exam: PRESENT: clear to auscultation kamlesh. ABSENT: rales, rhonchi, wheezes Cardiovascular exam: PRESENT: RRR. ABSENT: diastolic murmur, rubs, systolic murmur Pulses: PRESENT: normal dorsalis pedis pul Vascular exam: PRESENT: normal capillary refill GI/Abdominal exam: PRESENT: normal bowel sounds, soft. ABSENT: distended, guarding, mass, organolmegaly, rebound, tenderness Rectal exam: PRESENT: deferred Extremities exam: PRESENT: full ROM. ABSENT: calf tenderness, clubbing, pedal edema Neurological exam: PRESENT: alert, awake, oriented to person, oriented to place, oriented to time, oriented to situation, CN II-XII grossly intact. ABSENT: motor sensory deficit Psychiatric exam: PRESENT: appropriate affect, normal mood. ABSENT: homicidal ideation, suicidal ideation Skin exam: PRESENT: dry, intact, warm. ABSENT: cyanosis, rash Results Laboratory Results: 02/25/19 05:07 02/25/19 05:07 02/25/19 02/25/19 05:07 05:07 WBC 8.2 RBC 2.98 L Hgb 8.9 L Hct 26.7 L MCV 90 MCH 29.8 MCHC 33.2 RDW 17.9 H Plt Count 314 Sodium 130.0 L Potassium 4.1 Chloride 99 Carbon Dioxide 26 Anion Gap 5 BUN 17 Creatinine 0.77 Est GFR ( Amer) > 60 Glucose 110 Calcium 8.0 L 02/22/19 19:39 Nephrostomy - Not Specified Urine Culture - Final NO GROWTH 2 DAYS 02/23/19 06:50 NT-Pro-B Natriuret Pep 2130 H Impressions: Head CT 02/22/19 20:02 IMPRESSION: 1. No acute intracranial findings. Chest X-Ray 02/22/19 20:03 IMPRESSION: copyright 2010 [employer]- All Rights Reserved Abdomen/Pelvis CT 02/23/19 00:00 IMPRESSION: Bilateral nephrostomy catheters are in place without hydronephrosis or hydroureter. Markedly abnormal urinary bladder and seminal vesicles. Findings worrisome for bladder tumor involvement in the inferior aspect left rectus muscle sheath. Extravesical extension of bladder tumor into the pelvic fat over the left bladder dome. Assessment & Plan - Diagnosis (1) UTI (urinary tract infection) Qualifiers: Urinary tract infection type: acute pyelonephritis Qualified Code(s): N10 - Acute pyelonephritis Is this a current diagnosis for this admission?: Yes Plan: Improving, continue with antibiotics (2) Encephalopathy acute Is this a current diagnosis for this admission?: Yes Plan: Probably secondary to the UTI and delirium from that, improved now, hopefully will continue to improve (3) Acute renal injury Is this a current diagnosis for this admission?: Yes Plan: Improved with hydration as well as treatment of the infection, patient seems better now. (4) Bladder cancer Qualifiers: Bladder location: posterior wall Qualified Code(s): C67.4 - Malignant neoplasm of posterior wall of bladder Is this a current diagnosis for this admission?: Yes Plan: Plan for continued therapy as an outpatient
[2019-02-25] MEDS: MAG HYDROX/AL HYDROX/SIMETH SUSP 30 ML UDCUP PO PRN (12:03)
[2019-02-25] MEDS: PANTOPRAZOLE SODIUM 20 MG TABLET.DR PO SCH (13:45)
--- NOTE | 2019-02-25 14:16 | PDOC PROGRESS REPORT ---
Subjective Progress Note for:: 02/25/19 Subjective:: MARII TAN is a 83 year old male with a past medical history of stage IV bladder cancer with bilateral nephrostomy tubes, CAD, multiple stents, hypertension who is oriented x4 and independently ambulatory at baseline. Patient was admitted 9 07/05/2018 for Acute encephalopathy, ROSIE, and hyponatremia. Next Patient was seen on morning rounds with his and son present. Patient is A&Ox4 today, though fatigues quickle and falls back to sleep mid-conversation. Patient's reports that he was able to feed himself today and ate most of his breakfast. Patient is also asking to get out of bed to the recliner today. He denies fever, chills, chest pain, dyspnea, abdominal pain, nausea/vomiting. He has been tolerating 25-50% of meals. Reviewed progress and plan of care w/ patient and family. Discussed possible discharge to home Wednesday with services if patient continues to improve. They have no other questions or concerns at this time. No concerns per nursing. Reason For Visit: ENCEPHALOPATHY Physical Exam Vital Signs: Temp Pulse Resp BP Pulse Ox 97.7 F 85 16 153/49 H 95 02/25/19 07:56 02/25/19 08:42 02/25/19 08:42 02/25/19 07:56 02/25/19 08:42 Intake & Output 02/24/19 02/25/19 02/26/19 06:59 06:59 06:59 Intake Total 2700 700 50 Output Total 1000 2400 Balance 1700 -1700 50 Weight 100.5 kg 100.5 kg General appearance: PRESENT: no acute distress, cooperative, hard of hearing, ob josie, well-developed, well-nourished Head exam: PRESENT: atraumatic, normocephalic Eye exam: PRESENT: conjunctiva pink, EOMI, PERRLA. ABSENT: scleral icterus Ear exam: PRESENT: normal external ear exam Mouth exam: PRESENT: moist, tongue midline Neck exam: ABSENT: carotid bruit, JVD, lymphadenopathy, thyromegaly Respiratory exam: PRESENT: clear to auscultation kamlesh, symmetrical, unlabored. ABSENT: rales, rhonchi, wheezes Cardiovascular exam: PRESENT: RRR, +S1, +S2. ABSENT: diastolic murmur, rubs, systolic murmur Pulses: PRESENT: normal dorsalis pedis pul Vascular exam: PRESENT: normal capillary refill GI/Abdominal exam: PRESENT: normal bowel sounds, soft, other - bilateral nephrostomy tubes; clear yellow urine to left, clear alejandro to right (improved). ABSENT: distended, guarding, mass, organolmegaly, rebound, tenderness Rectal exam: PRESENT: deferred Extremities exam: PRESENT: full ROM. ABSENT: calf tenderness, clubbing, pedal edema Neurological exam: PRESENT: alert, awake, oriented to person, oriented to place, oriented to time, oriented to situation, CN II-XII grossly intact, other - fatigued. ABSENT: motor sensory deficit Psychiatric exam: PRESENT: appropriate affect, normal mood. ABSENT: homicidal ideation, suicidal ideation Skin exam: PRESENT: dry, intact, warm. ABSENT: cyanosis, rash Results Laboratory Results: 02/25/19 05:07 02/25/19 05:07 02/25/19 02/25/19 05:07 05:07 WBC 8.2 RBC 2.98 L Hgb 8.9 L Hct 26.7 L MCV 90 MCH 29.8 MCHC 33.2 RDW 17.9 H Plt Count 314 Sodium 130.0 L Potassium 4.1 Chloride 99 Carbon Dioxide 26 Anion Gap 5 BUN 17 Creatinine 0.77 Est GFR ( Amer) > 60 Glucose 110 Calcium 8.0 L 02/22/19 19:39 Nephrostomy - Not Specified Urine Culture - Final NO GROWTH 2 DAYS 02/23/19 06:50 NT-Pro-B Natriuret Pep 2130 H Impressions: Head CT 02/22/19 20:02 IMPRESSION: 1. No acute intracranial findings. Chest X-Ray 02/22/19 20:03 IMPRESSION: copyright 2010 [email or web address]- All Rights Reserved Abdomen/Pelvis CT 02/23/19 00:00 IMPRESSION: Bilateral nephrostomy catheters are in place without hydronephrosis or hydroureter. Markedly abnormal urinary bladder and seminal vesicles. Findings worrisome for bladder tumor involvement in the inferior aspect left rectus muscle sheath. Extravesical extension of bladder tumor into the pelvic fat over the left bladder dome. Assessment and Plan - Diagnosis (1) Encephalopathy acute Is this a current diagnosis for this admission?: Yes Plan: Significant improvement today; tremor is resolved, A&Ox4, fatigued. Recent onset, unremarkable work-up, suspect Levaquin. Possibly worsened by acute CHF exacerbation, ROSIE, hyponatremia, and/or pain related to malignancy. Family members remain at bedside for delirium support. CT Abd/Pelvis remarkable for Bladder CA w/ inferior aspect of left rectus muscle sheath; bibasilar opacities appear to be atelectasis (PNA r/o). ABG is reassuring LFTs nml Supportive care. Fall precautions. Management of CHF as below. Management of bladder CA as below. Will continue to r/o infectious etiology (cultures pending); empirically treating for urinary tract infection related to outpatient urinalysis and culture results medially prior to admission. Minimize sedating medications. (2) Acute renal injury Is this a current diagnosis for this admission?: Yes Plan: Resolved; Cr 1.44-> 1.07-> 0.90-> 0.77 Sodium, chloride, bicarb, BUN all improved. Small protein in urinalysis Continue to optimize cardiac output Avoid nephrotoxic meds and doses Monitor daily chemistry (3) General weakness Is this a current diagnosis for this admission?: Yes Plan: Possibly secondary to #1 Supportive care. Physical therapy consultation. Discharge planning is consulted. Fall precautions. (4) Hyponatremia Is this a current diagnosis for this admission?: Yes Plan: Improved; NA 125.4-> 126.2-> 128.3-130.0 Possibly secondary to poor p.o. intake, complicated by CHF exacerbation res ulting in fluid volume overload Continue IV furosemide as below Monitor chemistries. (5) Bladder cancer Qualifiers: Bladder location: posterior wall Qualified Code(s): C67.4 - Malignant neoplasm of posterior wall of bladder Is this a current diagnosis for this admission?: Yes Plan: CT Abd/Pelvis remarkable for Bladder CA w/ inferior aspect of left rectus muscle sheath Dr. Hinson is consulted. Appreciate his assistance. (6) UTI (urinary tract infection) Qualifiers: Urinary tract infection type: acute pyelonephritis Qualified Code(s): N10 - Acute pyelonephritis Is this a current diagnosis for this admission?: Yes Plan: Urine culture (see 02/15/2019) collected by patient's oncologist demonstrated Pseudomonas fluorescence with resistance to Bactrim. The patient had received 1 week of therapy with Bactrim and then was transitioned to Levaquin. Shortly thereafter, he began having increased confusion and weakness. Laboratory work-up at Dr. Hinson's office revealed ROSIE with hyponatremia; patient had been coming to the office for outpatient IV fluids. Patient continued to worsen and so was directed to the emergency department resulting in his admission. Repeat urinalysis on admission negative. The patient has nephrostomy tube to left leg bag with clear, yellow, urine. Nephrostomy tube to right leg bag draining dark, tea-colored, urine with sediment; improved appearance today. Individual urine cultures for each are now negative at 24 hours. Blood cultures negative at 48 hours. The above-mentioned outpatient urine culture did show sensitivity to cefepime; continue IV cefepime. Day #3. Patient should receive minimum 2 weeks of appropriate antibiotic therapy for complicated UTI. (7) CHF (congestive heart failure) Qualifiers: Heart failure chronicity: acute Is this a current diagnosis for this admission?: Yes Plan: The patient's denies prior history of CHF, though does admit to CAD with multiple stents, [place], hypertension, and hyperlipidemia. The patient is noted to have bilateral lower extremity edema, had crackles on exam per H&P, and is noted to have increased work of breathing today. proBNP elevated to 2130; no prior results to compare to. EKG demonstrated sinus rhythm with LBBB; chronic. Echocardiogram pending. We will continue to monitor patient on continuous cardiac telemetry. Continue cardiac diet. Continue diuresis with IV furosemide 20 mg every 12 hours. Daily weights, strict I&O's - Time Time Spent with patient: 25-34 minutes Medications reviewed and adjusted accordingly: Yes Anticipated discharge: Home with Homehealth Within: within 72 hours
[2019-02-25] MEDS: TRAZODONE HCL 50 MG TABLET PO SCH (22:11)
[2019-02-26 05:05] LABS: HEMATOCRIT 26.2 % (37.9-51.0); HEMOGLOBIN 8.9 g/dL (13.5-17.0); MEAN CORPUSCULAR HEMOGLOBIN 30.5 pg (27.0-33.4); MEAN CORPUSCULAR VOLUME 90 fl (80-97); PLATELET COUNT 316 10^3/uL (150-450); RED BLOOD COUNT 2.91 10^6/uL (4.35-5.55); WHITE BLOOD COUNT 9.1 10^3/uL (4.0-10.5)
[2019-02-26 05:28] LABS: BLOOD UREA NITROGEN 17 mg/dL (7-20); CALCIUM 7.9 mg/dL (8.4-10.2); GLUCOSE 113 mg/dL (75-110); POTASSIUM 4.3 mmol/L (3.6-5.0)
[2019-02-26 05:33] LABS: CARBON DIOXIDE 30 mmol/L (22-30); CHLORIDE 96 mmol/L (98-107)
[2019-02-26 05:35] LABS: ANION GAP 4 (5-19)
[2019-02-26] MEDS: IPRATROPIUM/ALBUTEROL 0.5-2.5 MG/3 ML AMPUL NEB SCH ×2 (08:17→19:56)
[2019-02-26] MEDS ORDERED: FUROSEMIDE 40 MG TABLET PO SCH (10:00)
[2019-02-26] MEDS: CEFEPIME 1 GM/D5W RTU 1 GM/50 ML RTUPB IV SCH ×2 (10:22→22:38)
[2019-02-26] MEDS: ASPIRIN 81 MG TABLET, ENT COATED PO SCH (10:23)
[2019-02-26] MEDS: AMLODIPINE BESYLATE 5 MG TABLET PO SCH (10:23)
[2019-02-26] MEDS: LACTOBACILLUS ACIDOPHILUS 250 MG TAB PO SCH (10:23)
[2019-02-26] MEDS: GUAIFENESIN 600 MG TABLET.SA PO SCH ×2 (10:24→22:37)
[2019-02-26] MEDS: NYSTATIN CREAM 15 GM TP SCH ×2 (10:26→18:17)
--- NOTE | 2019-02-26 11:14 | PDOC PROGRESS REPORT ---
Subjective Progress Note for:: 02/26/19 Subjective:: Patient was able to get up with minimal assist, with a walker and sat in the chair for 5 hours. Had a long discussion with his , who is very concerned whether she will be able to take care of him at home, we discussed options such as home care, we will have further physical therapy assessment today and decide on next steps of care. However I did discuss with him that if he goes to some sort of rehab/[facility] he will not be able to get systemic chemotherapy. Reason For Visit: ENCEPHALOPATHY Physical Exam Vital Signs: Temp Pulse Resp BP Pulse Ox 97.8 F 78 22 H 146/52 H 100 02/26/19 08:21 02/26/19 08:21 02/26/19 08:21 02/26/19 08:21 02/26/19 08:21 Intake & Output 02/25/19 02/26/19 02/27/19 06:59 06:59 06:59 Intake Total 700 640 Output Total 2400 2130 Balance -1700 -1490 Weight 100.5 kg 99.8 kg General appearance: PRESENT: no acute distress, well-developed, well-nourished Head exam: PRESENT: atraumatic, normocephalic Eye exam: PRESENT: conjunctiva pink, EOMI, PERRLA. ABSENT: scleral icterus Ear exam: PRESENT: normal external ear exam Mouth exam: PRESENT: moist, tongue midline Neck exam: ABSENT: carotid bruit, JVD, lymphadenopathy, thyromegaly Respiratory exam: PRESENT: clear to auscultation kamlesh. ABSENT: rales, rhonchi, wheezes Cardiovascular exam: PRESENT: RRR. ABSENT: diastolic murmur, rubs, systolic murmur Pulses: PRESENT: normal dorsalis pedis pul Vascular exam: PRESENT: normal capillary refill GI/Abdominal exam: PRESENT: normal bowel sounds, soft. ABSENT: distended, guarding, mass, organolmegaly, rebound, tenderness Rectal exam: PRESENT: deferred Extremities exam: PRESENT: full ROM. ABSENT: calf tenderness, clubbing, pedal edema Neurological exam: PRESENT: alert, awake, oriented to person, oriented to place, oriented to time, oriented to situation, CN II-XII grossly intact. ABSENT: motor sensory deficit Psychiatric exam: PRESENT: appropriate affect, normal mood. ABSENT: homicidal ideation, suicidal ideation Skin exam: PRESENT: dry, intact, warm. ABSENT: cyanosis, rash Results Laboratory Results: 02/26/19 04:25 02/26/19 04:25 02/26/19 02/26/19 04:25 04:25 WBC 9.1 RBC 2.91 L Hgb 8.9 L Hct 26.2 L MCV 90 MCH 30.5 MCHC 34.0 RDW 18.0 H Plt Count 316 Sodium 130.0 L Potassium 4.3 Chloride 96 L Carbon Dioxide 30 Anion Gap 4 L BUN 17 Creatinine 0.73 Est GFR ( Amer) > 60 Glucose 113 H Calcium 7.9 L 02/23/19 13:15 Nephrostomy - Right Urine Culture - Final NO GROWTH 2 DAYS 02/23/19 13:13 Nephrostomy - Left Urine Culture - Final NO GROWTH 2 DAYS 02/23/19 06:50 NT-Pro-B Natriuret Pep 2130 H Impressions: Head CT 02/22/19 20:02 IMPRESSION: 1. No acute intracranial findings. Chest X-Ray 02/22/19 20:03 IMPRESSION: copyright 2011 [employer]- All Rights Reserved Abdomen/Pelvis CT 02/23/19 00:00 IMPRESSION: Bilateral nephrostomy catheters are in place without hydronephrosis or hydroureter. Markedly abnormal urinary bladder and seminal vesicles. Findings worrisome for bladder tumor involvement in the inferior aspect left rectus muscle sheath. Extravesical extension of bladder tumor into the pelvic fat over the left bladd er dome. Assessment & Plan - Diagnosis (1) UTI (urinary tract infection) Qualifiers: Urinary tract infection type: acute pyelonephritis Qualified Code(s): N10 - Acute pyelonephritis Is this a current diagnosis for this admission?: Yes Plan: Continue with current therapy (2) Encephalopathy acute Is this a current diagnosis for this admission?: Yes Plan: Improved secondary to UTI (3) Acute renal injury Is this a current diagnosis for this admission?: Yes Plan: Improved, secondary to infection (4) Bladder cancer Qualifiers: Bladder location: posterior wall Qualified Code(s): C67.4 - Malignant neoplasm of posterior wall of bladder Is this a current diagnosis for this admission?: Yes Plan: Hopeful continuation of therapy in the next week or 2
[2019-02-26] MEDS: MAG HYDROX/AL HYDROX/SIMETH SUSP 30 ML UDCUP PO PRN (12:37)
[2019-02-26] MEDS: HEPARIN SOD (PORCINE) 5,000 UNIT/ML 1 ML VIAL SUBCUT SCH ×2 (14:15→22:37)
--- NOTE | 2019-02-26 14:21 | PDOC PROGRESS REPORT ---
Subjective Progress Note for:: 02/26/19 Subjective:: MARII TAN is a 83 year old male with a past medical history of stage IV bladder cancer with bilateral nephrostomy tubes, CAD, multiple stents, hypertension who is oriented x4 and independently ambulatory at baseline. Patient was admitted 9 07/05/2018 for Acute encephalopathy, ROSIE, and hyponatremia. Next Patient was seen on morning rounds with his present. He has been resting in bed, comfortably, on supplemental oxygen at 2 L/min; he is not home O2 dep endent. Patient is A&Ox4 today, he is sleeping when I enter the room, but wakes easily and immediately joins the conversation. He reports that he is feeling well today, though tired. He denies fever, chills, chest pain, dyspnea, abdominal pain, nausea/vomiting. He has been tolerating 25-50% of meals. They have no other questions or concerns at this time. No concerns per nursing. Reason For Visit: ENCEPHALOPATHY Physical Exam Vital Signs: Temp Pulse Resp BP Pulse Ox 97.8 F 78 22 H 146/52 H 100 02/26/19 08:21 02/26/19 08:21 02/26/19 08:21 02/26/19 08:21 02/26/19 08:21 Intake & Output 02/25/19 02/26/19 02/27/19 06:59 06:59 06:59 Intake Total 700 640 Output Total 2400 2130 Balance -1700 -1490 Weight 100.5 kg 99.8 kg General appearance: PRESENT: no acute distress, cooperative, obese, well- developed, well-nourished Head exam: PRESENT: atraumatic, normocephalic Eye exam: PRESENT: conjunctiva pink, EOMI, PERRLA. ABSENT: scleral icterus Ear exam: PRESENT: normal external ear exam Mouth exam: PRESENT: moist, tongue midline Neck exam: ABSENT: carotid bruit, JVD, lymphadenopathy, thyromegaly Respiratory exam: PRESENT: clear to auscultation kamlesh, symmetrical, unlabored. ABSENT: rales, rhonchi, wheezes Cardiovascular exam: PRESENT: RRR, +S1, +S2. ABSENT: diastolic murmur, rubs, systolic murmur Pulses: PRESENT: normal dorsalis pedis pul Vascular exam: PRESENT: normal capillary refill GI/Abdominal exam: PRESENT: normal bowel sounds, soft, other - Bilateral nephrostomy tubes and; left draining clear yellow urine, right draining clear dark alejandro urine. ABSENT: distended, guarding, mass, organolmegaly, rebound, tenderness Rectal exam: PRESENT: deferred Extremities exam: PRESENT: full ROM. ABSENT: calf tenderness, clubbing, pedal edema Neurological exam: PRESENT: alert, awake, oriented to person, oriented to place, oriented to time, oriented to situation, CN II-XII grossly intact, other - Fatigued. ABSENT: motor sensory deficit Psychiatric exam: PRESENT: appropriate affect, normal mood. ABSENT: homicidal ideation, suicidal ideation Skin exam: PRESENT: dry, intact, warm. ABSENT: cyanosis, rash Results Laboratory Results: 02/26/19 04:25 02/26/19 04:25 02/26/19 02/26/19 04:25 04:25 WBC 9.1 RBC 2.91 L Hgb 8.9 L Hct 26.2 L MCV 90 MCH 30.5 MCHC 34.0 RDW 18.0 H Plt Count 316 Sodium 130.0 L Potassium 4.3 Chloride 96 L Carbon Dioxide 30 Anion Gap 4 L BUN 17 Creatinine 0.73 Est GFR ( Amer) > 60 Glucose 113 H Calcium 7.9 L 02/23/19 13:15 Nephrostomy - Right Urine Culture - Final NO GROWTH 2 DAYS 02/23/19 13:13 Nephrostomy - Left Urine Culture - Final NO GROWTH 2 DAYS 02/23/19 06:50 NT-Pro-B Natriuret Pep 2130 H Impressions: Head CT 02/22/19 20:02 IMPRESSION: 1. No acute intracranial findings. Chest X-Ray 02/22/19 20:03 IMPRESSION: copyright 2010 [employer]- All Rights Reserved Abdomen/Pelvis CT 02/23/19 00:00 IMPRESSION: Bilateral nephrostomy catheters are in place without hydronephrosis or hydroureter. Markedly abnormal urinary bladder and seminal vesicles. Findings worrisome for bladder tumor involvement in the inferior aspect left rectus muscle sheath. Extravesical extension of bladder tumor into the pelvic fat over the left bladder dome. Assessment and Plan - Diagnosis (1) Encephalopathy acute Is this a current diagnosis for this admission?: Yes Plan: Resolved. Acute metabolic encephalopathy; secondary to UTI, CHF, ROSIE, hyponatremia. Family members remain at bedside for delirium support. CT Abd/Pelvis remarkable for Bladder CA w/ inferior aspect of left rectus muscle sheath; bibasilar opacities appear to be atelectasis (PNA r/o). ABG is reassuring LFTs nml Supportive care. Fall precautions. Management of CHF as below. Management of bladder CA as below. Will continue to r/o infectious etiology (cultures pending); empirically treating for urinary tract infection related to outpatient urinalysis and culture results medially prior to admission. Minimize sedating medications. (2) Acute renal injury Is this a current diagnosis for this admission?: Yes Plan: Resolved; Cr 1.44-> 0.77 Sodium, chloride, bicarb, BUN all improved. Small protein in urinalysis Continue to optimize cardiac output Avoid nephrotoxic meds and doses Monitor daily chemistry (3) General weakness Is this a current diagnosis for this admission?: Yes Plan: Secondary to #1 Supportive care. Physical therapy consultation. Discharge planning is consulted. Fall precautions. (4) Hyponatremia Is this a current diagnosis for this admission?: Yes Plan: Improved; NA 125.4-> 130.0 Possibly secondary to poor p.o. intake, complicated by CHF exacerbation resultin g in fluid volume overload Transition to p.o. furosemide 40 mg every morning today. Monitor chemistries. (5) Bladder cancer Qualifiers: Bladder location: posterior wall Qualified Code(s): C67.4 - Malignant neoplasm of posterior wall of bladder Is this a current diagnosis for this admission?: Yes Plan: CT Abd/Pelvis remarkable for Bladder CA w/ inferior aspect of left rectus muscle sheath Dr. Hinson is consulted. Appreciate his assistance. (6) UTI (urinary tract infection) Qualifiers: Urinary tract infection type: acute pyelonephritis Qualified Code(s): N10 - Acute pyelonephritis Is this a current diagnosis for this admission?: Yes Plan: Urine culture (02/15/2019) collected by patient's oncologist demonstrated Pseudomonas fluorescence with resistance to Bactrim. The patient had received 1 week of therapy with Bactrim and then was transitioned to Levaquin. Shortly thereafter, he began having increased confusion and weakness. Laboratory work-up at Dr. Hinson's office revealed ROSIE with hyponatremia; patient had been coming to the office for outpatient IV fluids. Patient continued to worsen and so was directed to the emergency department resulting in his admission. Repeat urinalysis on admission negative. The patient has nephrostomy tube to left leg bag with clear, yellow, urine. Nephrostomy tube to right leg bag draining dark, alejandro, urine with sediment; overall improved appearance. Individual urine cultures for each are now negative at 24 hours. Blood cultures negative at 72 hours. The above-mentioned outpatient urine culture did show sensitivity to cefepime; continue IV cefepime. Day #4. Patient should receive minimum 2 weeks of appropriate antibiotic therapy for complicated UTI. (7) CHF (congestive heart failure) Qualifiers: Heart failure chronicity: acute Is this a current diagnosis for this admission?: Yes Plan: The patient's denies prior history of CHF, though does admit to CAD with multiple stents, NC, hypertension, and hyperlipidemia. The patient is noted to have bilateral lower extremity edema, had crackles on exam per H&P, and is noted to have increased work of breathing today. proBNP elevated to 2130; no prior results to compare to. EKG demonstrated sinus rhythm with LBBB; chronic. Echocardiogram pending. We will continue to monitor patient on continuous cardiac telemetry. Continue cardiac diet. Furosemide 40 mg p.o. every morning. Daily weights, strict I&O's - Time Time Spent with patient: 25-34 minutes Medications reviewed and adjusted accordingly: Yes Anticipated discharge: Home with Homehealth Within: within 48 hours
--- NOTE | 2019-02-26 16:17 | XCELERA REPORT ---
[address] [address] Transthoracic Echocardiogram Report Name: MARII TAN Age: 83 yrs Gender: Male : 1935 Patient Status: Inpatient Patient Location: [address] [place] [address] Study Date: 02/23/2019 03:11 PM Height: 70 in Weight: 220 lb BSA: 2.2 m2 Procedure: A two-dimensional transthoracic echocardiogram with color flow and Doppler was performed. The study was technically difficult with many images being suboptimal in quality. Reason For Study: CHF History: CHF. Ordering Physician: JOAQUIN STEVENS Performed By: Radha Gerber Interpretation Summary The left ventricle is normal in size. There is normal left ventricular wall thickness. LV EF is 60% Left ventricular systolic function is normal. Doppler measurements suggest impaired left ventricular relaxation, which is associated with grade I/IV or mild diastolic dysfunction The left ventricular wall motion is normal. There is no thrombus. NO ASD ,VSD , or PFO seen The right ventricle is grossly normal size. The right atrium is normal. The left atrium is mildly dilated. There is no evidence of mitral valve prolapse. There is no vegetation seen on the mitral valve. There is no mitral valve stenosis. There is no aortic valvular vegetation. There is moderate aortic stenosis There is a peak gradient of 46.5 mm of Hg , and as mean gradient of 25.3 mm of Hg. There is no tricuspid stenosis. There is a trace to mild amount of tricuspid regurgitation There is mild pulmonary hypertension by echo RVSP is 41 to 46 mm of Hg , with RA mean of 5 to 10. There is no pulmonic valvular stenosis. The aortic root is normal size. The inferior vena cava appeared normal and decreased > 50% with respiration (RAP 5-10 mmHg) There is no pericardial effusion. MMode/2D Measurements & Calculations RVDd: 3.7 cm LVIDd: 5.0 cm FS: 35.3 % Ao root diam: 2.7 cm IVSd: 0.99 cm LVIDs: 3.2 cm EDV(Teich): 117.7 ml Ao root area: 5.9 cm2 LVPWd: 1.1 cm ESV(Teich): 41.9 ml LA dimension: 4.2 cm EF(Teich): 64.4 % LVOT diam: 2.3 cm LVOT area: 4.0 cm2 Doppler Measurements & Calculations MV E max mackenzie: MV P1/2t max mackenzie: Ao V2 max: LV V1 max P.8 cm/sec 93.8 cm/sec 340.7 cm/sec 5.3 mmHg MV A max mackenzie: MV P1/2t: 37.3 msec Ao max PG: LV V1 mean P.8 cm/sec MVA(P1/2t): 5.9 cm2 46.5 mmHg 3.0 mmHg MV E/A: 0.67 MV dec slope: Ao V2 mean: LV V1 max: 237.4 cm/sec 114.6 cm/sec 735.4 cm/sec2 Ao mean PG: LV V1 mean: MV dec time: 0.13 sec 25.8 mmHg 79.4 cm/sec Ao V2 VTI: 72.5 cmLV V1 VTI: 21.0 cm CHRISTAL(I,D): 1.2 cm2 CHRISTAL(V,D): 1.3 cm2 SV(LVOT): 84.0 ml PA V2 max: TR max mackenzie: MV P1/2t-pr_phl: 151.4 cm/sec 300.0 cm/sec 37.3 msec PA max P.2 mmHg TR max P.0 mmHg Left Ventricle The left ventricle is normal in size. There is normal left ventricular wall thickness. LV EF is 60%. Left ventricular systolic function is normal. Doppler measurements suggest impaired left ventricular relaxation, which is associated with grade I/IV or mild diastolic dysfunction. The left ventricular wall motion is normal. There is no thrombus. NO ASD ,VSD , or PFO seen. Right Ventricle The right ventricle is grossly normal size. Atria The right atrium is normal. The left atrium is mildly dilated. Mitral Valve There is no evidence of mitral valve prolapse. There is no vegetation seen on the mitral valve. There is no mitral valve stenosis. There is a trace to mild amount of mitral regurgitation. Aortic Valve There is no aortic valvular vegetation. There is moderate aortic stenosis. There is a peak gradient of 46.5 mm of Hg , and as mean gradient of 25.3 mm of Hg. Tricuspid Valve There is no tricuspid stenosis. There is a trace to mild amount of tricuspid regurgitation. There is mild pulmonary hypertension by echo. RVSP is 41 to 46 mm of Hg , with RA mean of 5 to 10. Pulmonic Valve The pulmonic valve is not well visualized. There is no pulmonic valvular stenosis. There is a trace amount of pulmonic regurgitation. Great Vessels The aortic root is normal size. The inferior vena cava appeared normal and decreased > 50% with respiration (RAP 5-10 mmHg). Effusions There is no pericardial effusion. : JOAQUIN STEVENS Lakshmi
[2019-02-26] MEDS: TRAZODONE HCL 50 MG TABLET PO SCH (22:37)
[2019-02-27 04:30] LABS: HEMATOCRIT 27.2 % (37.9-51.0); HEMOGLOBIN 9.2 g/dL (13.5-17.0); MEAN CORPUSCULAR HEMOGLOBIN 29.9 pg (27.0-33.4); MEAN CORPUSCULAR HGB CONC 33.7 g/dL (32.0-36.0); MEAN CORPUSCULAR VOLUME 89 fl (80-97); PLATELET COUNT 349 10^3/uL (150-450); RED BLOOD COUNT 3.06 10^6/uL (4.35-5.55); RED CELL DISTRIBUTION WIDTH 17.6 % (11.5-14.0); WHITE BLOOD COUNT 10.3 10^3/uL (4.0-10.5)
[2019-02-27 04:44] LABS: ALBUMIN 2.7 g/dL (3.5-5.0); ALKALINE PHOSPHATASE 65 U/L (38-126); ASPARTATE AMINO TRANSFERASE 27 U/L (17-59); BILIRUBIN,DIRECT 0.1 mg/dL (0.0-0.4); BILIRUBIN,TOTAL 0.2 mg/dL (0.2-1.3); BLOOD UREA NITROGEN 19 mg/dL (7-20); GLUCOSE 130 mg/dL (75-110); POTASSIUM 4.5 mmol/L (3.6-5.0); TOTAL PROTEIN 5.2 g/dL (6.3-8.2)
[2019-02-27 04:50] LABS: CARBON DIOXIDE 34 mmol/L (22-30); CHLORIDE 94 mmol/L (98-107)
[2019-02-27 04:55] LABS: ANION GAP 3 (5-19)
[2019-02-27] MEDS: PANTOPRAZOLE SODIUM 20 MG TABLET.DR PO SCH ×2 (06:19→22:01)
[2019-02-27] MEDS: HEPARIN SOD (PORCINE) 5,000 UNIT/ML 1 ML VIAL SUBCUT SCH ×4 (06:19→22:25)
--- NOTE | 2019-02-27 08:02 | PDOC PROGRESS REPORT ---
Subjective Progress Note for:: 02/27/19 Subjective:: Pt was restless overnight but this am sleeping in chair. Walker at bedside and notes he seems eager to try to work w/ PT, poor po intake though w/ metallic taste changes in mouth. Have some inc SOB/wheezing improved after pt got in chair. Reason For Visit: ENCEPHALOPATHY Physical Exam Vital Signs: Temp Pulse Resp BP Pulse Ox 98.3 F 72 22 H 151/52 H 94 02/27/19 03:37 02/27/19 03:37 02/27/19 03:37 02/27/19 03:37 02/27/19 03:37 Intake & Output 02/26/19 02/27/19 02/28/19 06:59 06:59 06:59 Intake Total 640 698 Output Total 2130 575 Balance -1490 123 Weight 99.8 kg General appearance: PRESENT: no acute distress, well-developed, well-nourished Head exam: PRESENT: atraumatic, normocephalic Eye exam: PRESENT: conjunctiva pink, EOMI, PERRLA. ABSENT: scleral icterus Ear exam: PRESENT: normal external ear exam Mouth exam: PRESENT: moist, tongue midline Neck exam: ABSENT: carotid bruit, JVD, lymphadenopathy, thyromegaly Respiratory exam: PRESENT: clear to auscultation kamlesh. ABSENT: rales, rhonchi, wheezes Cardiovascular exam: PRESENT: RRR. ABSENT: diastolic murmur, rubs, systolic murmur Pulses: PRESENT: normal dorsalis pedis pul Vascular exam: PRESENT: normal capillary refill GI/Abdominal exam: PRESENT: normal bowel sounds, soft. ABSENT: distended, guarding, mass, organolmegaly, rebound, tenderness Rectal exam: PRESENT: deferred Extremities exam: PRESENT: full ROM. ABSENT: calf tenderness, clubbing, pedal edema Neurological exam: PRESENT: alert, awake, oriented to person, oriented to place, oriented to time, oriented to situation, CN II-XII grossly intact. ABSENT: motor sensory deficit Psychiatric exam: PRESENT: appropriate affect, normal mood. ABSENT: homicidal ideation, suicidal ideation Skin exam: PRESENT: dry, intact, warm. ABSENT: cyanosis, rash Results Laboratory Results: 02/27/19 04:14 02/27/19 04:14 02/27/19 02/27/19 04:14 04:14 WBC 10.3 RBC 3.06 L Hgb 9.2 L Hct 27.2 L MCV 89 MCH 29.9 MCHC 33.7 RDW 17.6 H Plt Count 349 Sodium 131.3 L Potassium 4.5 Chloride 94 L Carbon Dioxide 34 H Anion Gap 3 L BUN 19 Creatinine 0.67 Est GFR ( Amer) > 60 Glucose 130 H Calcium 8.0 L Total Bilirubin 0.2 AST 27 Alkaline Phosphatase 65 Total Protein 5.2 L Albumin 2.7 L 02/23/19 06:50 NT-Pro-B Natriuret Pep 2130 H Impressions: Head CT 02/22/19 20:02 IMPRESSION: 1. No acute intracranial findings. Chest X-Ray 02/22/19 20:03 IMPRESSION: copyright 2011 [employer]- All Rights Reserved Abdomen/Pelvis CT 02/23/19 00:00 IMPRESSION: Bilateral nephrostomy catheters are in place without hydronephrosis or hydroureter. Markedly abnormal urinary bladder and seminal vesicles. Findings worrisome for bladder tumor involvement in the inferior aspect left rectus muscle sheath. Extravesical extension of bladder tumor into the pelvic fat over the left bladder dome. Assessment & Plan - Diagnosis (1) UTI (urinary tract infection) Qualifiers: Urinary tract infection type: acute pyelonephritis Qualified Code(s): N10 - Acute pyelonephritis Is this a current diagnosis for this admission?: Yes Plan: Improving (2) Encephalopathy acute Is this a current diagnosis for this admission?: Yes Plan: Resolving (3) Acute renal injury Is this a current diagnosis for this admission?: Yes Plan: Improved (4) Bladder cancer Qualifiers: Bladder location: posterior wall Qualified Code(s): C67.4 - Malignant neoplasm of posterior wall of bladder Is this a current diagnosis for this admission?: Yes Plan: further rx as ouptt
[2019-02-27] MEDS: IPRATROPIUM/ALBUTEROL 0.5-2.5 MG/3 ML AMPUL NEB SCH ×2 (08:24→20:31)
[2019-02-27] MEDS: LACTOBACILLUS ACIDOPHILUS 250 MG TAB PO SCH (09:16)
[2019-02-27] MEDS: GUAIFENESIN 600 MG TABLET.SA PO SCH ×2 (09:21→22:25)
[2019-02-27] MEDS: FUROSEMIDE 40 MG TABLET PO SCH (09:22)
[2019-02-27] MEDS: ASPIRIN 81 MG TABLET, ENT COATED PO SCH (09:22)
[2019-02-27] MEDS: AMLODIPINE BESYLATE 5 MG TABLET PO SCH (09:22)
[2019-02-27] MEDS: NYSTATIN CREAM 15 GM TP SCH ×2 (09:23→18:23)
[2019-02-27] MEDS: CEFEPIME 1 GM/D5W RTU 1 GM/50 ML RTUPB IV SCH ×2 (09:23→22:25)
[2019-02-27] MEDS ORDERED: POLYETHYLENE GLYCOL 3350 POWDER 17 GM/1 PACKET PO PRN (17:58)
[2019-02-27] MEDS ORDERED: MAGNESIUM HYDROXIDE SUSP 30 ML UDCUP PO PRN (17:58)
[2019-02-27] MEDS ORDERED: BISACODYL 10 MG SUPP.RECT PR PRN (17:58)
--- NOTE | 2019-02-27 18:15 | PDOC PROGRESS REPORT ---
Subjective Progress Note for:: 02/27/19 Subjective:: MARII TAN is a 83 year old male with a past medical history of stage IV bladder cancer with bilateral nephrostomy tubes, CAD, multiple stents, hypertension who is oriented x4 and independently ambulatory at baseline. Patient was admitted 9 07/05/2018 for Acute encephalopathy, ROSIE, and hyponatremia. Next Patient was seen on morning rounds with his present. He has been resting in bed, comfortably, on supplemental oxygen at 2 L/min; he is not home O2 dep endent. Patient is awake, A&Ox4 today. He reports he is feeling better. He is looking forward to working with physical therapy to determine readiness for discharge to home w/ home services vs short stay in rehab. He denies fever, chills, chest pain, palpitations, dyspnea, orthopbea, cough, abdominal pain, nausea/vomiting. He does complain of constipation. Otherwise, he has no questions or concerns at this time. No concerns per nursing. Reason For Visit: ENCEPHALOPATHY Physical Exam Vital Signs: Temp Pulse Resp BP Pulse Ox 97.4 F 74 16 144/40 H 96 02/27/19 12:24 02/27/19 12:24 02/27/19 12:24 02/27/19 12:24 02/27/19 12:24 Intake & Output 02/26/19 02/27/19 02/28/19 06:59 06:59 06:59 Intake Total 640 698 575 Output Total 2130 575 300 Balance -1490 123 275 Weight 99.8 kg General appearance: PRESENT: no acute distress, cooperative, obese, well- developed, well-nourished, other - anasarca; edema to abdomen, thighs and scrotum. Overall improved. Head exam: PRESENT: atraumatic, normocephalic Eye exam: PRESENT: conjunctiva pink, EOMI, PERRLA. ABSENT: scleral icterus Ear exam: PRESENT: normal external ear exam Mouth exam: PRESENT: moist, tongue midline Neck exam: ABSENT: carotid bruit, JVD, lymphadenopathy, thyromegaly Respiratory exam: PRESENT: clear to auscultation kamlesh, symmetrical, unlabored. ABSENT: rales, rhonchi, wheezes Cardiovascular exam: PRESENT: RRR, +S1, +S2. ABSENT: diastolic murmur, rubs, systolic murmur Pulses: PRESENT: normal dorsalis pedis pul Vascular exam: PRESENT: normal capillary refill GI/Abdominal exam: PRESENT: normal bowel sounds, soft. ABSENT: distended, guarding, mass, organolmegaly, rebound, tenderness Rectal exam: PRESENT: deferred Gentrourinary exam: PRESENT: other - Bilateral nephrostomy tubes and; left draining clear yellow urine, right draining clear alejandro urine Extremities exam: PRESENT: full ROM. ABSENT: calf tenderness, clubbing, pedal edema Neurological exam: PRESENT: alert, awake, oriented to person, oriented to place, oriented to time, oriented to situation, CN II-XII grossly intact. ABSENT: motor sensory deficit Psychiatric exam: PRESENT: appropriate affect, normal mood. ABSENT: homicidal ideation, suicidal ideation Skin exam: PRESENT: dry, intact, warm. ABSENT: cyanosis, rash Results Laboratory Results: 02/27/19 04:14 02/27/19 04:14 02/27/19 02/27/19 04:14 04:14 WBC 10.3 RBC 3.06 L Hgb 9.2 L Hct 27.2 L MCV 89 MCH 29.9 MCHC 33.7 RDW 17.6 H Plt Count 349 Sodium 131.3 L Potassium 4.5 Chloride 94 L Carbon Dioxide 34 H Anion Gap 3 L BUN 19 Creatinine 0.67 Est GFR ( Amer) > 60 Glucose 130 H Calcium 8.0 L Total Bilirubin 0.2 AST 27 Alkaline Phosphatase 65 Total Protein 5.2 L Albumin 2.7 L 02/23/19 06:50 NT-Pro-B Natriuret Pep 2130 H Impressions: Head CT 02/22/19 20:02 IMPRESSION: 1. No acute intracranial findings. Chest X-Ray 02/22/19 20:03 IMPRESSION: copyright 2010 [employer]- All Rights Reserved Abdomen/Pelvis CT 02/23/19 00:00 IMPRESSION: Bilateral nephrostomy catheters are in place without hydronephrosis or hydroureter. Markedly abnormal urinary bladder and seminal vesicles. Findings worrisome for bladder tumor involvement in the inferior aspect left rectus muscle sheath. Extravesical extension of bladder tumor into the pelvic fat over the left bladder dome. Assessment and Plan - Diagnosis (1) Encephalopathy acute Is this a current diagnosis for this admission?: Yes Plan: Resolved. Acute metabolic encephalopathy; secondary to UTI, CHF, ROSIE, hyponatremia. Family members remain at bedside for delirium support. CT Abd/Pelvis remarkable for Bladder CA w/ inferior aspect of left rectus muscle sheath; bibasilar opacities appear to be atelectasis (PNA r/o). ABG is reassuring LFTs nml Supportive care. Fall precautions. Management of CHF as below. Management of bladder CA as below. Will continue to r/o infectious etiology (cultures pending); empirically treating for urinary tract infection related to outpatient urinalysis and culture results medially prior to admission. Minimize sedating medications. (2) Acute renal injury Is this a current diagnosis for this admission?: Yes Plan: Resolved; Cr 1.44-> 0.67 Sodium, chloride, bicarb, BUN all improved. BUN is slightly up today with increased Bicarb; likely secondary to furosemide use Small protein in urinalysis Continue to optimize cardiac output Avoid nephrotoxic meds and doses; decrease furosemide today Monitor daily chemistry (3) General weakness Is this a current diagnosis for this admission?: Yes Plan: Secondary to #1 Supportive care. Physical therapy consultation; recommends home with home health services. Discharge planning is consulted; DME equipment requested (hospital bed, wheelchair). Fall precautions. (4) Hyponatremia Is this a current diagnosis for this admission?: Yes Plan: Improved; NA 125.4-> 131.3 Possibly secondary to poor p.o. intake, complicated by CHF exacerbation resulting in fluid volume overload Continue p.o. furosemide. Monitor chemistries. (5) Bladder cancer Qualifiers: Bladder location: posterior wall Qualified Code(s): C67.4 - Malignant neoplasm of posterior wall of bladder Is this a current diagnosis for this admission?: Yes Plan: CT Abd/Pelvis remarkable for Bladder CA w/ inferior aspect of left rectus muscle sheath Dr. Hinson is consulted. Appreciate his assistance. (6) UTI (urinary tract infection) Qualifiers: Urinary tract infection type: acute pyelonephritis Qualified Code(s): N10 - Acute pyelonephritis Is this a current diagnosis for this admission?: Yes Plan: Urine culture (02/15/2019) collected by patient's oncologist demonstrated Pseudomonas fluorescence with resistance to Bactrim. The patient had received 1 week of therapy with Bactrim and then was transitioned to Levaquin. Shortly thereafter, he began having increased confusion and weakness. Repeat urinalysis on admission negative. Individual urine cultures for each are negative Blood cultures negative Received urine culture report from Dr. Hinson's office; only resistant to Bactrim and amikacin. Continue IV cefepime. Day #5. Patient should receive minimum 2 weeks of appropriate antibiotic therapy for complicated UTI. (7) CHF (congestive heart failure) Qualifiers: Heart failure chronicity: acute Is this a current diagnosis for this admission?: Yes Plan: The patient's denies prior history of CHF, though does admit to CAD with multiple stents, GA, hypertension, and hyperlipidemia. The patient is noted to have bilateral lower extremity edema, had crackles on exam per H&P, and is noted to have increased work of breathing today. proBNP elevated to 2130; no prior results to compare to. EKG demonstrated sinus rhythm with LBBB; chronic. Echocardiogram is benign; LVEF normal with grade 1 left ventricular diastolic dysfunction and mild pulmonary hypertension. We will continue to monitor patient on continuous cardiac telemetry. Continue cardiac diet. We will decrease furosemide to 20 mg p.o. every morning; chemistry today demonstrated contraction alkalosis Daily weights, strict I&O's (8) Anasarca Is this a current diagnosis for this admission?: Yes Plan: Echocardiogram is benign. Albumin 2.7. Weaning furosemide due to contraction alkalosis; continue furosemide 20 mg p.o. daily. Boost with meals. Registered dietitian is consulted. - Time Time Spent with patient: 25-34 minutes Medications reviewed and adjusted accordingly: Yes Anticipated discharge: Home with Homehealth - vs. short-term rehab Within: within 24 hours - Patient and family to decide between home with home health versus short-term rehab. Have asked discharge planning to assist with o btaining DME and home health services referral; family is informed that discharge home is my recommendation
[2019-02-27] MEDS: TRAZODONE HCL 50 MG TABLET PO SCH (22:25)
[2019-02-28 05:06] LABS: ANION GAP 5 (5-19); BLOOD UREA NITROGEN 23 mg/dL (7-20); CALCIUM 7.9 mg/dL (8.4-10.2); CARBON DIOXIDE 31 mmol/L (22-30); CHLORIDE 94 mmol/L (98-107); GLUCOSE 117 mg/dL (75-110); POTASSIUM 4.7 mmol/L (3.6-5.0)
[2019-02-28] MEDS: HEPARIN SOD (PORCINE) 5,000 UNIT/ML 1 ML VIAL SUBCUT SCH ×3 (06:00→22:40)
[2019-02-28] MEDS: PANTOPRAZOLE SODIUM 20 MG TABLET.DR PO SCH (06:00)
--- NOTE | 2019-02-28 08:05 | PDOC PROGRESS REPORT ---
Subjective Progress Note for:: 02/28/19 Subjective:: Pt doing better this am, did get up w. PT yesterday into bedside chair. concerned about her ability to care for him at home. I noted that it would be possible to get him hospital bed, bedside commode at home w/ home health and home PT. Discussed w/ hospitalist team also. We also would need home 02 eval. Discussed that if he goes to rehab/NH, continued immunoRx will not be possible. Reason For Visit: ENCEPHALOPATHY Physical Exam Vital Signs: Temp Pulse Resp BP Pulse Ox 97.8 F 74 16 155/54 H 96 02/28/19 04:36 02/28/19 04:36 02/28/19 04:36 02/28/19 04:36 02/28/19 04:36 Intake & Output 02/27/19 02/28/19 03/01/19 06:59 06:59 06:59 Intake Total 698 1030 Output Total 575 600 Balance 123 430 Weight 99 kg General appearance: PRESENT: no acute distress, well-developed, well-nourished Head exam: PRESENT: atraumatic, normocephalic Eye exam: PRESENT: conjunctiva pink, EOMI, PERRLA. ABSENT: scleral icterus Ear exam: PRESENT: normal external ear exam Mouth exam: PRESENT: moist, tongue midline Neck exam: ABSENT: carotid bruit, JVD, lymphadenopathy, thyromegaly Respiratory exam: PRESENT: clear to auscultation kamlesh. ABSENT: rales, rhonchi, wheezes Cardiovascular exam: PRESENT: RRR. ABSENT: diastolic murmur, rubs, systolic murmur Pulses: PRESENT: normal dorsalis pedis pul Vascular exam: PRESENT: normal capillary refill GI/Abdominal exam: PRESENT: normal bowel sounds, soft. ABSENT: distended, guarding, mass, organolmegaly, rebound, tenderness Rectal exam: PRESENT: deferred Extremities exam: PRESENT: full ROM. ABSENT: calf tenderness, clubbing, pedal edema Neurological exam: PRESENT: alert, awake, oriented to person, oriented to place, oriented to time, oriented to situation, CN II-XII grossly intact. ABSENT: motor sensory deficit Psychiatric exam: PRESENT: appropriate affect, normal mood. ABSENT: homicidal ideation, suicidal ideation Skin exam: PRESENT: dry, intact, warm. ABSENT: cyanosis, rash Results Laboratory Results: 02/27/19 04:14 02/28/19 04:30 02/28/19 04:30 Sodium 129.8 L Potassium 4.7 Chloride 94 L Carbon Dioxide 31 H Anion Gap 5 BUN 23 H Creatinine 0.70 Est GFR ( Amer) > 60 Glucose 117 H Calcium 7.9 L 02/22/19 19:51 Blood Blood Culture - Final NO GROWTH IN 5 DAYS 02/22/19 17:09 Blood Blood Culture - Final NO GROWTH IN 5 DAYS 02/23/19 06:50 NT-Pro-B Natriuret Pep 2130 H Impressions: Head CT 02/22/19 20:02 IMPRESSION: 1. No acute intracranial findings. Chest X-Ray 02/22/19 20:03 IMPRESSION: copyright 2011 [employer]- All Rights Reserved Abdomen/Pelvis CT 02/23/19 00:00 IMPRESSION: Bilateral nephrostomy catheters are in place without hydronephrosis or hydroureter. Markedly abnormal urinary bladder and seminal vesicles. Findings worrisome for bladder tumor involvement in the inferior aspect left rectus muscle sheath. Extravesical extension of bladder tumor into the pelvic fat over the left bladder dome. Assessment & Plan - Diagnosis (1) UTI (urinary tract infection) Qualifiers: Urinary tract infection type: acute pyelonephritis Qualified Code(s): N10 - Acute pyelonephritis Is this a current diagnosis for this admission?: Yes Plan: Con't atbx per hospitalist team (2) Encephalopathy acute Is this a current diagnosis for this admission?: Yes Plan: Improved, 2nd UTI (3) Acute renal injury Is this a current diagnosis for this admission?: Yes Plan: Improved (4) Bladder cancer Qualifiers: Bladder location: posterior wall Qualified Code(s): C67.4 - Malignant neoplasm of posterior wall of bladder Is this a current diagnosis for this admission?: Yes Plan: Cont Rx as ouptt - Time Time Spent with patient: 35 or more minutes Anticipated discharge: Home with Homehealth Within: within 48 hours Disposition: Today spent 45 m in discussion w/ , hospitalist team - Inpatient Certification Based on my medical assessment, after consideration of the patient's comorbidities, presenting symptoms, or acuity I expect that the services needed warrant INPATIENT care.: Yes I certify that my determination is in accordance with my understanding of Medicare's requirements for reasonable and necessary INPATIENT services [42 CFR 412.3e].: Yes Medical Necessity: Need for Nebulizer Therapy and Monitoring of Response, Need for IV Antibiotics, Risk of Complication if Not Cared For in Hospital
[2019-02-28] MEDS: IPRATROPIUM/ALBUTEROL 0.5-2.5 MG/3 ML AMPUL NEB SCH ×2 (08:27→20:45)
[2019-02-28] MEDS: LACTOBACILLUS ACIDOPHILUS 250 MG TAB PO SCH (10:45)
[2019-02-28] MEDS: DOCUSATE SODIUM 100 MG CAPSULE PO SCH (10:45)
[2019-02-28] MEDS: FUROSEMIDE 40 MG TABLET PO SCH (10:46)
[2019-02-28] MEDS: ASPIRIN 81 MG TABLET, ENT COATED PO SCH (10:46)
[2019-02-28] MEDS: CEFEPIME 1 GM/D5W RTU 1 GM/50 ML RTUPB IV SCH ×2 (10:49→22:40)
[2019-02-28] MEDS: AMLODIPINE BESYLATE 5 MG TABLET PO SCH (10:51)
[2019-02-28] MEDS: GUAIFENESIN 600 MG TABLET.SA PO SCH ×2 (10:51→22:40)
[2019-02-28] MEDS: POLYETHYLENE GLYCOL 3350 POWDER 17 GM/1 PACKET PO SCH (10:51)
[2019-02-28] MEDS: NYSTATIN CREAM 15 GM TP SCH ×2 (10:53→17:47)
--- NOTE | 2019-02-28 14:09 | PDOC PROGRESS REPORT ---
Subjective Progress Note for:: 02/28/19 Subjective:: The patient is sitting in the chair. His is at the bedside. She reports that he has some GI symptoms when laying down but this improves when sitting up. It almost feels like he has to burp. She does not believe it affects his breathing. He is comfortable in the chair. She feels that his edema is improved. Reason For Visit: ENCEPHALOPATHY Physical Exam Vital Signs: Temp Pulse Resp BP Pulse Ox 97.8 F 77 16 155/54 H 95 02/28/19 04:36 02/28/19 08:27 02/28/19 08:27 02/28/19 04:36 02/28/19 08:27 Intake & Output 02/27/19 02/28/19 03/01/19 06:59 06:59 06:59 Intake Total 698 1030 50 Output Total 575 600 Balance 123 430 50 Weight 99 kg General appearance: PRESENT: no acute distress, cooperative, well-developed Head exam: PRESENT: atraumatic, normocephalic Eye exam: PRESENT: conjunctiva pale. ABSENT: scleral icterus Ear exam: PRESENT: normal external ear exam. ABSENT: bleeding, drainage Mouth exam: PRESENT: moist, tongue midline Respiratory exam: PRESENT: clear to auscultation kamlesh - Anteriorly, symmetrical, unlabored, other - Decreased breath sounds at bases. ABSENT: rales, rhonchi, tachypnea, wheezes Cardiovascular exam: PRESENT: RRR, +S1, +S2 GI/Abdominal exam: PRESENT: diminished bowel sounds, soft, other - Nephrostomy tubes urostomy with leg bag. ABSENT: distended, tenderness Extremities exam: PRESENT: pedal edema, +1 edema - Extends to posterior thigh Musculoskeletal exam: ABSENT: deformity, tenderness Neurological exam: PRESENT: alert, awake, oriented to person, oriented to place, oriented to time, oriented to situation Psychiatric exam: PRESENT: flat affect. ABSENT: agitated, anxious Focused psych exam: ABSENT: delusional, restlessness Skin exam: PRESENT: dry, pallor, warm. ABSENT: rash Results Laboratory Results: 02/27/19 04:14 02/28/19 04:30 02/28/19 04:30 Sodium 129.8 L Potassium 4.7 Chloride 94 L Carbon Dioxide 31 H Anion Gap 5 BUN 23 H Creatinine 0.70 Est GFR ( Amer) > 60 Glucose 117 H Calcium 7.9 L 02/22/19 19:51 Blood Blood Culture - Final NO GROWTH IN 5 DAYS 02/22/19 17:09 Blood Blood Culture - Final NO GROWTH IN 5 DAYS 02/23/19 06:50 NT-Pro-B Natriuret Pep 2130 H Impressions: Head CT 02/22/19 20:02 IMPRESSION: 1. No acute intracranial findings. Chest X-Ray 02/22/19 20:03 IMPRESSION: copyright 2010 [employer]- All Rights Reserved Abdomen/Pelvis CT 02/23/19 00:00 IMPRESSION: Bilateral nephrostomy catheters are in place without hydronephrosis or hydroureter. Markedly abnormal urinary bladder and seminal vesicles. Findings worrisome for bladder tumor involvement in the inferior aspect left rectus muscle sheath. Extravesical extension of bladder tumor into the pelvic fat over the left bladder dome. Assessment and Plan - Diagnosis (1) Encephalopathy acute Is this a current diagnosis for this admission?: Yes Plan: Resolved. Acute metabolic encephalopathy; secondary to UTI, CHF, ROSIE, hyponatremia. Family members remain at bedside for delirium support. CT Abd/Pelvis remarkable for Bladder CA w/ inferior aspect of left rectus muscle sheath; bibasilar opacities appear to be atelectasis (PNA r/o). ABG is reassuring LFTs nml Supportive care. Fall precautions. Management of CHF as below. Management of bladder CA as below. Will continue to r/o infectious etiology (cultures pending); empirically treating for urinary tract infection related to outpatient urinalysis and culture results medially prior to admission. Minimize sedating medications. 02/28/2019-patient is mentating clearly. (2) Acute renal injury Is this a current diagnosis for this admission?: Yes Plan: Resolved; Cr 1.44-> 0.67 Sodium, chloride, bicarb, BUN all improved. BUN is slightly up today with increased Bicarb; likely secondary to furosemide use Small protein in urinalysis Continue to optimize cardiac output Avoid nephrotoxic meds and doses; decrease furosemide today Monitor daily chemistry 02/28/2019-I have increased the furosemide back up to 40 mg daily. The patient still has some edema. He had some decreased breath sounds and I am repeating a chest x-ray to see if the pleural effusions have increased. (3) General weakness Is this a current diagnosis for this admission?: Yes Plan: Secondary to #1 Supportive care. Physical therapy consultation; recommends home with home health services. Discharge planning is consulted; DME equipment requested (hospital bed, wheelchair). Fall precautions. 02/28/2019-multiple comorbidities contributing. The patient has metastatic bladder cancer. He is quite debilitated. He is holding onto fluid and has an unsteady gait. He will benefit from ongoing physical therapy with home health. (4) Hyponatremia Is this a current diagnosis for this admission?: Yes Plan: Improved; NA 125.4-> 131.3 Possibly secondary to poor p.o. intake, complicated by CHF exacerbation resulting in fluid volume overload Continue p.o. furosemide. Monitor chemistries. 02/28/2019-serum sodium is slightly lower today. As he still has edema I am going to institute a 1.5 L fluid restriction and this should allow me to decrease the furosemide and at the same time improve his fluid balance. (5) Bladder cancer Qualifiers: Bladder location: posterior wall Qualified Code(s): C67.4 - Malignant neoplasm of posterior wall of bladder Is this a current diagnosis for this admission?: Yes Plan: CT Abd/Pelvis remarkable for Bladder CA w/ inferior aspect of left rectus muscle sheath Dr. Hinson is consulted. Appreciate his assistance. 02/28/2019-oncology is going to order a second immunotherapy treatment for next week. (6) UTI (urinary tract infection) Qualifiers: Urinary tract infection type: acute pyelonephritis Qualified Code(s): N10 - Acute pyelonephritis Is this a current diagnosis for this admission?: Yes Plan: Urine culture (02/15/2019) collected by patient's oncologist demonstrated Pseudomonas fluorescence with resistance to Bactrim. The patient had received 1 week of therapy with Bactrim and then was smith sitioned to Levaquin. Shortly thereafter, he began having increased confusion and weakness. Repeat urinalysis on admission negative. Individual urine cultures for each are negative Blood cultures negative Received urine culture report from Dr. Hinson's office; only resistant to Bactrim and amikacin. Continue IV cefepime. Day #5. Patient should receive minimum 2 weeks of appropriate antibiotic therapy for complicated UTI. 02/28/2019-the patient will likely tolerate quinolone therapy as an outpatient so as to avoid need for intravenous antibiotics. (7) CHF (congestive heart failure) Qualifiers: Heart failure type: diastolic Heart failure chronicity: acute Qualified Code(s): I50.31 - Acute diastolic (congestive) heart failure Is this a current diagnosis for this admission?: Yes Plan: The patient's denies prior history of CHF, though does admit to CAD with multiple stents, AR, hypertension, and hyperlipidemia. The patient is noted to have bilateral lower extremity edema, had crackles on exam per H&P, and is noted to have increased work of breathing today. proBNP elevated to 2130; no prior results to compare to. EKG demonstrated sinus rhythm with LBBB; chronic. Echocardiogram is benign; LVEF normal with grade 1 left ventricular diastolic dysfunction and mild pulmonary hypertension. We will continue to monitor patient on continuous cardiac telemetry. Continue cardiac diet. We will decrease furosemide to 20 mg p.o. every morning; chemistry today demonstrated contraction alkalosis Daily weights, strict I&O's 02/28/2019-Echo revealed diastolic dysfunction. The patient does benefit when sitting in a chair with his head elevated. He also will need to elevate his legs intermittently. With his weakness and adjustable height bed may also make it easier to transfer to the transport chair. The patient still requires oxygen therapy. I have asked for walking oximetry as he may need home oxygen. (8) Anasarca Is this a current diagnosis for this admission?: Yes Plan: Echocardiogram is benign. Albumin 2.7. Weaning furosemide due to contraction alkalosis; continue furosemide 20 mg p.o. daily. Boost with meals. Registered dietitian is consulted. 02/28/2019-multiple risk factors including the hypoalbuminemia. We will give 40 mg of furosemide for 1 more day and then resume 20 mg. A fluid restriction will also help. This will benefit the serum sodium as well. - Time Time Spent with patient: 15-24 minutes Medications reviewed and adjusted accordingly: Yes Anticipated discharge: Home with Homehealth Within: within 48 hours
--- NOTE | 2019-02-28 16:35 | RADIOLOGY REPORT (SQ) ---
EXAM DESCRIPTION: CHEST SINGLE VIEW COMPLETED DATE/TIME: 02/28/2019 4:23 pm REASON FOR STUDY: dyspnea COMPARISON: AP view of the chest from 02/26/2019. EXAM PARAMETERS: NUMBER OF VIEWS: One view. TECHNIQUE: Single frontal radiographic view of the chest acquired. RADIATION DOSE: NA LIMITATIONS: None. FINDINGS: LUNGS AND PLEURA: Bibasilar pleural and parenchymal opacities that could represent a combi [place] of pleural fluid, atelectasis and in the proper clinical consolidation. There is no pneumotho rax. MEDIASTINUM AND HILAR STRUCTURES: Stable mediastinal and hilar contours. HEART AND VASCULAR STRUCTURES: The cardiac silhouette and pulmonary vasculature within normal limits given the low inspiratory lung volumes. BONES: No acute findings. HARDWARE: The tip of the right IJ single-lumen port projects within the SVC. OTHER: No other finding. IMPRESSION: Bibasilar pleural and parenchymal opacities that could represent a combination of pleura l fluid, atelectasis and in the proper clinical setting consolidation ; these findings are increased compared to the radiograph from 02/22/2019. TECHNICAL DOCUMENTATION: JOB ID: [id number] [employer]- All Rights Reserved Reading location - IP/workstation name: [email or web address]
[2019-02-28] MEDS: TRAZODONE HCL 50 MG TABLET PO SCH (22:40)
[2019-03-01] MEDS: HEPARIN SOD (PORCINE) 5,000 UNIT/ML 1 ML VIAL SUBCUT SCH ×3 (05:15→21:09)
[2019-03-01] MEDS: PANTOPRAZOLE SODIUM 20 MG TABLET.DR PO SCH (05:15)
--- NOTE | 2019-03-01 07:48 | PDOC PROGRESS REPORT ---
Subjective Progress Note for:: 03/01/19 Subjective:: Doing better, looking better, reviewed cxr and there is bibasilar opacities and small effusions Reason For Visit: ENCEPHALOPATHY Physical Exam Vital Signs: Temp Pulse Resp BP Pulse Ox 97.8 F 67 21 H 139/55 H 97 03/01/19 03:37 03/01/19 03:37 03/01/19 03:37 03/01/19 03:37 03/01/19 03:37 Intake & Output 02/28/19 03/01/19 03/02/19 06:59 06:59 06:59 Intake Total 1030 1029 Output Total 600 865 Balance 430 164 Weight 99 kg 100.3 kg General appearance: PRESENT: no acute distress, well-developed, well-nourished Head exam: PRESENT: atraumatic, normocephalic Eye exam: PRESENT: conjunctiva pink, EOMI, PERRLA. ABSENT: scleral icterus Ear exam: PRESENT: normal external ear exam Mouth exam: PRESENT: moist, tongue midline Neck exam: ABSENT: carotid bruit, JVD, lymphadenopathy, thyromegaly Respiratory exam: PRESENT: clear to auscultation kamlesh. ABSENT: rales, rhonchi, wheezes Cardiovascular exam: PRESENT: RRR. ABSENT: diastolic murmur, rubs, systolic murmur Pulses: PRESENT: normal dorsalis pedis pul Vascular exam: PRESENT: normal capillary refill GI/Abdominal exam: PRESENT: normal bowel sounds, soft. ABSENT: distended, guarding, mass, organolmegaly, rebound, tenderness Rectal exam: PRESENT: deferred Extremities exam: PRESENT: full ROM. ABSENT: calf tenderness, clubbing, pedal edema Neurological exam: PRESENT: alert, awake, oriented to person, oriented to place, oriented to time, oriented to situation, CN II-XII grossly intact. ABSENT: motor sensory deficit Psychiatric exam: PRESENT: appropriate affect, normal mood. ABSENT: homicidal ideation, suicidal ideation Skin exam: PRESENT: dry, intact, warm. ABSENT: cyanosis, rash Results Laboratory Results: 02/27/19 04:14 02/28/19 04:30 02/23/19 06:50 NT-Pro-B Natriuret Pep 2130 H Impressions: Head CT 02/22/19 20:02 IMPRESSION: 1. No acute intracranial findings. Abdomen/Pelvis CT 02/23/19 00:00 IMPRESSION: Bilateral nephrostomy catheters are in place without hydronephrosis or hydroureter. Markedly abnormal urinary bladder and seminal vesicles. Findings worrisome for bladder tumor involvement in the inferior aspect left rectus muscle sheath. Extravesical extension of bladder tumor into the pelvic fat over the left bladder dome. Chest X-Ray 02/28/19 00:00 IMPRESSION: Bibasilar pleural and parenchymal opacities that could represent a combination of pleural fluid, atelectasis and in the proper clinical setting consolidation ; these findings are increased compared to the radiograph from 02/22/2019. Assessment & Plan - Diagnosis (1) UTI (urinary tract infection) Qualifiers: Urinary tract infection type: acute pyelonephritis Qualified Code(s): N10 - Acute pyelonephritis Is this a current diagnosis for this admission?: Yes Plan: Improving (2) Encephalopathy acute Is this a current diagnosis for this admission?: Yes Plan: Improved (3) Acute renal injury Is this a current diagnosis for this admission?: Yes Plan: Improved (4) Bladder cancer Qualifiers: Bladder location: posterior wall Qualified Code(s): C67.4 - Malignant neoplasm of posterior wall of bladder Is this a current diagnosis for this admission?: Yes Plan: Will f/u next week in office for hopeful continued Rx (5) CHF (congestive heart failure) Qualifiers: Heart failure type: diastolic Heart failure chronicity: acute Qualified Code(s): I50.31 - Acute diastolic (congestive) heart failure Is this a current diagnosis for this admission?: Yes Plan: Probable cause of opacities, effusions? Con't w/ lasix per hospitalist team, may need another day of this
[2019-03-01] MEDS: IPRATROPIUM/ALBUTEROL 0.5-2.5 MG/3 ML AMPUL NEB SCH ×2 (08:19→20:29)
[2019-03-01] MEDS: DOCUSATE SODIUM 100 MG CAPSULE PO SCH (11:13)
[2019-03-01] MEDS: FUROSEMIDE 40 MG TABLET PO SCH (11:14)
[2019-03-01] MEDS: ASPIRIN 81 MG TABLET, ENT COATED PO SCH (11:14)
[2019-03-01] MEDS: CEFEPIME 1 GM/D5W RTU 1 GM/50 ML RTUPB IV SCH (11:15)
[2019-03-01] MEDS: POLYETHYLENE GLYCOL 3350 POWDER 17 GM/1 PACKET PO SCH (11:15)
[2019-03-01] MEDS: GUAIFENESIN 600 MG TABLET.SA PO SCH ×2 (11:16→21:09)
[2019-03-01] MEDS: NYSTATIN CREAM 15 GM TP SCH ×2 (11:27→18:31)
[2019-03-01] MEDS: AMLODIPINE BESYLATE 5 MG TABLET PO SCH (11:27)
[2019-03-01] MEDS: LACTOBACILLUS ACIDOPHILUS 250 MG TAB PO SCH (11:29)
--- NOTE | 2019-03-01 15:39 | PDOC PROGRESS REPORT ---
Subjective Progress Note for:: 03/01/19 Subjective:: The patient just finished physical therapy. He is very sleepy. Discussion at bedside was mostly with the patient's regarding preparations for discharge home tomorrow. Reason For Visit: ENCEPHALOPATHY Physical Exam Vital Signs: Temp Pulse Resp BP Pulse Ox 97.8 F 87 16 153/56 H 90 L 03/01/19 12:29 03/01/19 12:29 03/01/19 12:29 03/01/19 12:29 03/01/19 12:29 Intake & Output 02/28/19 03/01/19 03/02/19 06:59 06:59 06:59 Intake Total 1030 1029 220 Output Total 600 865 300 Balance 430 164 -80 Weight 99 kg 100.3 kg General appearance: PRESENT: no acute distress, well-developed Head exam: PRESENT: atraumatic, normocephalic Mouth exam: PRESENT: dry mucosa, tongue midline Respiratory exam: PRESENT: chest wall tenderness - Anteriorly, symmetrical, unlabored. ABSENT: rales, rhonchi, tachypnea, wheezes Cardiovascular exam: PRESENT: RRR, +S1, +S2 GI/Abdominal exam: PRESENT: normal bowel sounds, soft, other - Bilateral nephrostomy tubes. ABSENT: distended, tenderness Neurological exam: ABSENT: awake Psychiatric exam: ABSENT: agitated Focused psych exam: ABSENT: restlessness Results Laboratory Results: 02/27/19 04:14 02/28/19 04:30 02/23/19 06:50 NT-Pro-B Natriuret Pep 2130 H Impressions: Head CT 02/22/19 20:02 IMPRESSION: 1. No acute intracranial findings. Abdomen/Pelvis CT 02/23/19 00:00 IMPRESSION: Bilateral nephrostomy catheters are in place without hydronephrosis or hydroureter. Markedly abnormal urinary bladder and seminal vesicles. Findings worrisome for bladder tumor involvement in the inferior aspect left rectus muscle sheath. Extravesical extension of bladder tumor into the pelvic fat over the left bladder dome. Chest X-Ray 02/28/19 00:00 IMPRESSION: Bibasilar pleural and parenchymal opacities that could represent a combination of pleural fluid, atelectasis and in the proper clinical setting consolidation ; these findings are increased compared to the radiograph from 02/22/2019. 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 Is this a current diagnosis for this admission?: Yes (6) UTI (urinary tract infection) Qualifiers: Urinary tract infection type: acute pyelonephritis Qualified Code(s): N10 - Acute pyelonephritis Is this a current diagnosis for this admission?: Yes (7) CHF (congestive heart failure) Qualifiers: Heart failure type: diastolic Heart failure chronicity: acute Qualified Code(s): I50.31 - Acute diastolic (congestive) heart failure Is this a current diagnosis for this admission?: Yes (8) Anasarca Is this a current diagnosis for this admission?: Yes (9) Acute and chronic respiratory failure with hypoxia Is this a current diagnosis for this admission?: Yes - Plan Summary Summary: Encephalopathy-several potential etiologies including the acute kidney injury, congestive heart failure and malignancy. Hyponatremia was also present and appears to be chronic but varying in severity. Encephalopathy has resolved. Acute hypoxic respiratory failure-ambulating on room air the patient's oxygen saturation dropped to 78% while ambulating on room air. At rest with oxygen back in place saturation improved to 94%. He will require 2 L nasal cannula continuous oxygen therapy with a portable system available as well.. Bladder cancer with bilateral cystostomy tubes-it was felt that there might be urinary tract infection. Multiple cultures were infected no growth. The patient has completed a course of antibiotics but this was not likely a pyelonephritis/infection. The collection bags from urostomy tube certainly can grow bacteria as the urine sits there however his cultures were no growth. Acute on chronic congestive heart failure-continue to adjust furosemide. Monitor intake and output. The patient is also on a fluid restriction for his hyponatremia. Anasarca-Albumin is low. The patient also had an exacerbation of congestive heart failure along with acute kidney injury. Anasarca is improving. Generalized weakness-the patient appears to be getting stronger with physical therapy. We have ordered home health for therapy at home along with possible medical equipment including a hospital bed, transfer chair and bedside commode. - Time Time Spent with patient: 15-24 minutes Medications reviewed and adjusted accordingly: Yes Anticipated discharge: Home Within: within 24 hours
[2019-03-01] MEDS: TRAZODONE HCL 50 MG TABLET PO SCH (21:09)
[2019-03-02] MEDS: PANTOPRAZOLE SODIUM 20 MG TABLET.DR PO SCH (05:20)
[2019-03-02] MEDS: HEPARIN SOD (PORCINE) 5,000 UNIT/ML 1 ML VIAL SUBCUT SCH ×3 (05:20→21:48)
[2019-03-02 05:39] LABS: ABSOLUTE BASOPHILS # (AUTO) 0.1 10^3/uL (0.0-0.2); ABSOLUTE EOSINOPHILS # (AUTO) 0.1 10^3/uL (0.0-0.6); ABSOLUTE LYMPHOCYTES (AUTO) 0.9 10^3/uL (0.5-4.7); ABSOLUTE NEUT (AUTO) 8.1 10^3/uL (1.7-8.2); EOSINOPHILS % (AUTO) 1.1 % (0-6); HEMATOCRIT 27.4 % (37.9-51.0); HEMOGLOBIN 9.2 g/dL (13.5-17.0); LYMPHOCYTES % (AUTO) 8.5 % (13-45); MEAN CORPUSCULAR HEMOGLOBIN 30.4 pg (27.0-33.4); MEAN CORPUSCULAR HGB CONC 33.4 g/dL (32.0-36.0); MEAN CORPUSCULAR VOLUME 91 fl (80-97); MONOCYTES % (AUTO) 9.6 % (3-13); PLATELET COUNT 321 10^3/uL (150-450); RED BLOOD COUNT 3.01 10^6/uL (4.35-5.55); RED CELL DISTRIBUTION WIDTH 18.7 % (11.5-14.0); SEGMENTED NEUTROPHILS % (AUTO) 79.8 % (42-78); TOTAL CELLS COUNTED % (AUTO) 100 %; WHITE BLOOD COUNT 10.1 10^3/uL (4.0-10.5)
[2019-03-02 06:07] LABS: BLOOD UREA NITROGEN 26 mg/dL (7-20); CALCIUM 8.3 mg/dL (8.4-10.2); CARBON DIOXIDE 35 mmol/L (22-30); CHLORIDE 92 mmol/L (98-107); GLUCOSE 122 mg/dL (75-110)
[2019-03-02 07:16] LABS: POTASSIUM 4.6 mmol/L (3.6-5.0)
[2019-03-02 07:25] LABS: ANION GAP 3 (5-19)
[2019-03-02] MEDS: IPRATROPIUM/ALBUTEROL 0.5-2.5 MG/3 ML AMPUL NEB SCH ×2 (08:21→19:50)
--- NOTE | 2019-03-02 08:33 | PDOC PROGRESS REPORT ---
Subjective Progress Note for:: 03/02/19 Subjective:: Patient doing much better today, was able to walk 60 feet with physical therapy, medical goods are still not placed in their house, she still needs a hospital bed and bedside commode Reason For Visit: ENCEPHALOPATHY Physical Exam Vital Signs: Temp Pulse Resp BP Pulse Ox 97.7 F 78 18 146/53 H 95 03/02/19 03:25 03/02/19 08:21 03/02/19 08:21 03/02/19 03:25 03/02/19 08:21 Intake & Output 03/01/19 03/02/19 03/03/19 06:59 06:59 06:59 Intake Total 1029 630 Output Total 865 1675 Balance 164 -1045 Weight 100.3 kg 100.2 kg General appearance: PRESENT: no acute distress, well-developed, well-nourished Head exam: PRESENT: atraumatic, normocephalic Eye exam: PRESENT: conjunctiva pink, EOMI, PERRLA. ABSENT: scleral icterus Ear exam: PRESENT: normal external ear exam Mouth exam: PRESENT: moist, tongue midline Neck exam: ABSENT: carotid bruit, JVD, lymphadenopathy, thyromegaly Respiratory exam: PRESENT: clear to auscultation kamlesh. ABSENT: rales, rhonchi, wheezes Cardiovascular exam: PRESENT: RRR. ABSENT: diastolic murmur, rubs, systolic murmur Pulses: PRESENT: normal dorsalis pedis pul Vascular exam: PRESENT: normal capillary refill GI/Abdominal exam: PRESENT: normal bowel sounds, soft. ABSENT: distended, guarding, mass, organolmegaly, rebound, tenderness Rectal exam: PRESENT: deferred Extremities exam: PRESENT: full ROM. ABSENT: calf tenderness, clubbing, pedal edema Neurological exam: PRESENT: alert, awake, oriented to person, oriented to place, oriented to time, oriented to situation, CN II-XII grossly intact. ABSENT: motor sensory deficit Psychiatric exam: PRESENT: appropriate affect, normal mood. ABSENT: homicidal ideation, suicidal ideation Skin exam: PRESENT: dry, intact, warm. ABSENT: cyanosis, rash Results Laboratory Results: 03/02/19 04:29 03/02/19 04:29 03/02/19 03/02/19 04:29 04:29 WBC 10.1 RBC 3.01 L Hgb 9.2 L Hct 27.4 L MCV 91 MCH 30.4 MCHC 33.4 RDW 18.7 H Plt Count 321 Seg Neutrophils % 79.8 H Sodium 129.9 L Potassium 4.6 Chloride 92 L Carbon Dioxide 35 H Anion Gap 3 L BUN 26 H Creatinine 0.70 Est GFR ( Amer) > 60 Glucose 122 H Calcium 8.3 L 02/23/19 06:50 NT-Pro-B Natriuret Pep 2130 H Impressions: Head CT 02/22/19 20:02 IMPRESSION: 1. No acute intracranial findings. Abdomen/Pelvis CT 02/23/19 00:00 IMPRESSION: Bilateral nephrostomy catheters are in place without hydronephrosis or hydroureter. Markedly abnormal urinary bladder and seminal vesicles. Findings worrisome for bladder tumor involvement in the inferior aspect left rectus muscle sheath. Extravesical extension of bladder tumor into the pelvic fat over the left bladder dome. Chest X-Ray 02/28/19 00:00 IMPRESSION: Bibasilar pleural and parenchymal opacities that could represent a combination of pleural fluid, atelectasis and in the proper clinical setting consolidation ; these findings are increased compared to the radiograph from 02/22/2019. 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
[2019-03-02] MEDS: POLYETHYLENE GLYCOL 3350 POWDER 17 GM/1 PACKET PO SCH (09:48)
[2019-03-02] MEDS: FUROSEMIDE 40 MG TABLET PO SCH (09:49)
[2019-03-02] MEDS: DOCUSATE SODIUM 100 MG CAPSULE PO SCH (09:49)
[2019-03-02] MEDS: ASPIRIN 81 MG TABLET, ENT COATED PO SCH (09:49)
[2019-03-02] MEDS: AMLODIPINE BESYLATE 5 MG TABLET PO SCH (09:49)
[2019-03-02] MEDS: LACTOBACILLUS ACIDOPHILUS 250 MG TAB PO SCH (09:49)
[2019-03-02] MEDS: GUAIFENESIN 600 MG TABLET.SA PO SCH ×2 (09:49→21:47)
[2019-03-02] MEDS: NYSTATIN CREAM 15 GM TP SCH ×2 (09:50→18:00)
--- NOTE | 2019-03-02 15:22 | PDOC PROGRESS REPORT ---
Subjective Progress Note for:: 03/02/19 Subjective:: She with some shortness of breath earlier today. He sat up in the chair and felt better. This is a common occurrence for him at home. His reports that he does have postnasal drip and he was coughing during this encounter. He states that he had a productive cough earlier today however I did not appreciate any sputum at this time. Reason For Visit: ENCEPHALOPATHY Physical Exam Vital Signs: Temp Pulse Resp BP Pulse Ox 97.2 F 78 18 160/47 H 95 03/02/19 07:57 03/02/19 08:21 03/02/19 08:21 03/02/19 07:57 03/02/19 08:21 Intake & Output 03/01/19 03/02/19 03/03/19 06:59 06:59 06:59 Intake Total 1029 630 360 Output Total 865 1675 Balance 164 -1045 360 Weight 100.3 kg 100.2 kg General appearance: PRESENT: no acute distress, other - Somnolent. His reports that he did not sleep well last night. Eye exam: PRESENT: conjunctiva pale. ABSENT: scleral icterus Mouth exam: PRESENT: dry mucosa, tongue midline Respiratory exam: PRESENT: decreased breath sounds - Patient unable to take a very deep breath., symmetrical, other - Nonproductive cough. ABSENT: rales, rhonchi, wheezes Cardiovascular exam: PRESENT: RRR, +S1, +S2 GI/Abdominal exam: PRESENT: normal bowel sounds, soft. ABSENT: distended, tenderness Gentrourinary exam: PRESENT: other - Bilateral cystostomy tubes Extremities exam: PRESENT: pedal edema Neurological exam: PRESENT: awake, oriented to person, oriented to place. ABSENT: alert - He wanted he woke up briefly during the encounter but overall is still sleepy. Psychiatric exam: ABSENT: agitated, anxious Results Laboratory Results: 03/02/19 04:29 03/02/19 04:29 03/02/19 03/02/19 04:29 04:29 WBC 10.1 RBC 3.01 L Hgb 9.2 L Hct 27.4 L MCV 91 MCH 30.4 MCHC 33.4 RDW 18.7 H Plt Count 321 Seg Neutrophils % 79.8 H Sodium 129.9 L Potassium 4.6 Chloride 92 L Carbon Dioxide 35 H Anion Gap 3 L BUN 26 H Creatinine 0.70 Est GFR ( Amer) > 60 Glucose 122 H Calcium 8.3 L 02/23/19 06:50 NT-Pro-B Natriuret Pep 2130 H Impressions: Head CT 02/22/19 20:02 IMPRESSION: 1. No acute intracranial findings. Abdomen/Pelvis CT 02/23/19 00:00 IMPRESSION: Bilateral nephrostomy catheters are in place without hydronephrosis or hydroureter. Markedly abnormal urinary bladder and seminal vesicles. Findings worrisome for bladder tumor involvement in the inferior aspect left rectus muscle sheath. Extravesical extension of bladder tumor into the pelvic fat over the left bladder dome. Chest X-Ray 02/28/19 00:00 IMPRESSION: Bibasilar pleural and parenchymal opacities that could represent a combination of pleural fluid, atelectasis and in the proper clinical setting consolidation ; these findings are increased compared to the radiograph from 02/22/2019. 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 Is this a current diagnosis for this admission?: Yes (6) UTI (urinary tract infection) Qualifiers: Urinary tract infection type: acute pyelonephritis Qualified Code(s): N10 - Acute pyelonephritis Is this a current diagnosis for this admission?: Yes (7) CHF (congestive heart failure) Qualifiers: Heart failure type: diastolic Heart failure chronicity: acute Qualified Code(s): I50.31 - Acute diastolic (congestive) heart failure Is this a current diagnosis for this admission?: Yes (8) Anasarca Is this a current diagnosis for this admission?: Yes (9) Acute and chronic respiratory failure with hypoxia Is this a current diagnosis for this admission?: Yes - Plan Summary Summary: Encephalopathy-several potential etiologies including the acute kidney injury, congestive heart failure and malignancy. Hyponatremia was also present and appears to be chronic but varying in severity. Encephalopathy has resolved. Acute hypoxic respiratory failure-ambulating on room air the patient's oxygen saturation dropped to 78% while ambulating on room air. At rest with oxygen back in place saturation improved to 94%. He will require 2 L nasal cannula continuous oxygen therapy with a portable system available as well.. Bladder cancer with bilateral cystostomy tubes-it was felt that there might be urinary tract infection. Multiple cultures were infected no growth. The patient has completed a course of antibiotics but this was not likely a pyelonephritis/infection. The collection bags from urostomy tube certainly can grow bacteria as the urine sits there however his cultures were no growth. Acute on chronic congestive heart failure-continue to adjust furosemide. Monitor intake and output. The patient is also on a fluid restriction for his hyponatremia. Anasarca-Albumin is low. The patient also had an exacerbation of congestive heart failure along with acute kidney injury. Anasarca is improving. Generalized weakness-the patient appears to be getting stronger with physical therapy. We have ordered home health for therapy at home along with possible medical equipment including a hospital bed, transfer chair and bedside commode. 03/02/2019-the patient still has intermittent episodes of shortness of breath. He sat up today and felt better. He has been on Lasix and fluid restriction (for hyponatremia). It does not seem likely that it is congestive failure however he has been off of his home losartan and hydralazine with slightly higher blood pressures. I will resume hydralazine and olmesartan and reassess tomorrow. He also uses an albuterol inhaler as needed at home. This may need to be increased. He has been on DuoNeb's every 6 hours and this may need to be more aggressive regimen. Acute on chronic congestive heart failure-as noted above he has had a negative fluid balance. His furosemide is at 40 mg daily. We will continue to monitor intake and output. The patient is still on a 1.5 L fluid restriction. His sodium seems to remain below 135. This may be his new baseline. We will continue to monitor. Anasarca-improving. Low albumin levels are contributing. We are waiting for durable medical equipment to be delivered to the home. Probable discharge tomorrow. - Time Time Spent with patient: 15-24 minutes Medications reviewed and adjusted accordingly: Yes Anticipated discharge: Home Within: within 24 hours
[2019-03-02] MEDS: TRAZODONE HCL 50 MG TABLET PO SCH (21:48)
[2019-03-02] MEDS: FLUTICASONE NASAL SPRAY 50 MCG/SPRY 120 SPRAY/16 GM NASL SCH (21:48)
[2019-03-03] MEDS ORDERED: METHYLPREDNISOLONE INJ 125 MG/2 ML SDV IV ONE (05:00)
[2019-03-03] MEDS ORDERED: RACEPINEPHRINE HCL 2.25% NEB 0.5 ML AMPUL NEB ONE (05:00)
[2019-03-03] MEDS: HEPARIN SOD (PORCINE) 5,000 UNIT/ML 1 ML VIAL SUBCUT SCH ×2 (05:04→13:52)
[2019-03-03] MEDS: PANTOPRAZOLE SODIUM 20 MG TABLET.DR PO SCH (05:04)
--- NOTE | 2019-03-03 05:09 | Progress Note ---
Provider Note Provider Note: Critical care note: 03/03/2019 Critical care start time: 4:28 AM Critical care problem acute respiratory distress with stridor: I was contacted by the patient's nurse and also with the respiratory therapist who is seeing patient. They reported that the patient was having stridorous breathing and very difficult respirations and was unable to speak. The symptoms developed over a very short period of time. I came to the patient's room to assess his respiratory status. The respiratory therapist recommended use of racemic epinephrine and I concurred with the use of a half dose (0.25 mL) given via nebulizer. Patient was also treated with Solu-Medrol 125 mg IV x1. Patient showed excellent and fairly dramatic response to racemic epinephrine. Patient was observed during his nebulizer therapy and for several minutes after completion of the nebulizer treatment. His heart rate remained in the 80s and his blood pressure remained stable. His respiratory status in the meantime improved to the point where he could speak in 2-3 word sentences the stridorous tone of his respirations was noted to be markedly decreased and his inspired volume was noted to be significantly increased. Patient's O2 sat was stable and plans were made for repeat racemic epinephrine treatments if needed for rebound stridor. Critical care stop time: 4:58 AM Total critical care time: 30 minutes
[2019-03-03] MEDS: IPRATROPIUM/ALBUTEROL 0.5-2.5 MG/3 ML AMPUL NEB SCH (07:55)
--- NOTE | 2019-03-03 08:57 | PDOC PROGRESS REPORT ---
Subjective Progress Note for:: 03/03/19 Subjective:: Patient doing better today, equipment apparently being delivered, patient may be DC'd today Reason For Visit: ENCEPHALOPATHY Physical Exam Vital Signs: Temp Pulse Resp BP Pulse Ox 97.6 F 84 20 150/55 H 89 L 03/03/19 03:37 03/03/19 08:01 03/03/19 08:01 03/03/19 03:37 03/03/19 08:01 Intake & Output 03/02/19 03/03/19 03/04/19 06:59 06:59 06:59 Intake Total 630 840 Output Total 1675 1325 Balance -1045 -485 Weight 100.2 kg 101.9 kg General appearance: PRESENT: no acute distress, well-developed, well-nourished Head exam: PRESENT: atraumatic, normocephalic Eye exam: PRESENT: conjunctiva pink, EOMI, PERRLA. ABSENT: scleral icterus Ear exam: PRESENT: normal external ear exam Mouth exam: PRESENT: moist, tongue midline Neck exam: ABSENT: carotid bruit, JVD, lymphadenopathy, thyromegaly Respiratory exam: PRESENT: clear to auscultation kamlesh. ABSENT: rales, rhonchi, wheezes Cardiovascular exam: PRESENT: RRR. ABSENT: diastolic murmur, rubs, systolic murmur Pulses: PRESENT: normal dorsalis pedis pul Vascular exam: PRESENT: normal capillary refill GI/Abdominal exam: PRESENT: normal bowel sounds, soft. ABSENT: distended, guarding, mass, organolmegaly, rebound, tenderness Rectal exam: PRESENT: deferred Extremities exam: PRESENT: full ROM. ABSENT: calf tenderness, clubbing, pedal edema Neurological exam: PRESENT: alert, awake, oriented to person, oriented to place, oriented to time, oriented to situation, CN II-XII grossly intact. ABSENT: motor sensory deficit Psychiatric exam: PRESENT: appropriate affect, normal mood. ABSENT: homicidal ideation, suicidal ideation Skin exam: PRESENT: dry, intact, warm. ABSENT: cyanosis, rash Results Laboratory Results: 03/02/19 04:29 03/02/19 04:29 02/23/19 06:50 NT-Pro-B Natriuret Pep 2130 H Impressions: Head CT 02/22/19 20:02 IMPRESSION: 1. No acute intracranial findings. Abdomen/Pelvis CT 02/23/19 00:00 IMPRESSION: Bilateral nephrostomy catheters are in place without hydronephrosis or hydroureter. Markedly abnormal urinary bladder and seminal vesicles. Findings worrisome for bladder tumor involvement in the inferior aspect left rectus muscle sheath. Extravesical extension of bladder tumor into the pelvic fat over the left bladder dome. Chest X-Ray 02/28/19 00:00 IMPRESSION: Bibasilar pleural and parenchymal opacities that could represent a combination of pleural fluid, atelectasis and in the proper clinical setting con solidation ; these findings are increased compared to the radiograph from 02/22/2019. 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
--- NOTE | 2019-03-03 09:42 | RADIOLOGY REPORT (SQ) ---
EXAM DESCRIPTION: CHEST SINGLE VIEW COMPLETED DATE/TIME: 03/03/2019 9:27 am REASON FOR STUDY: Increased shortness of breath COMPARISON: 02/28/2019 EXAM PARAMETERS: NUMBER OF VIEWS: One view. TECHNIQUE: Single frontal radiographic view of the chest acquired. RADIATION DOSE: NA LIMITATIONS: None. FINDINGS: LUNGS AND PLEURA: Low lung volumes with persistent patchy basilar predominant airspace dis ease and a mild bilateral effusions. No pneumothorax. MEDIASTINUM AND HILAR STRUCTURES: Stable. HEART AND VASCULAR STRUCTURES: Enlarged, stable. Aortic atherosclerosis. BONES: No acute findings. Chronic right-sided rib fractures. HARDWARE: Right IJ based chest port with catheter tip at cavoatrial junction. OTHER: No other significant finding. IMPRESSION: Stable chest with low volumes and persistent patchy bibasilar opacities and mild effusio ns. TECHNICAL DOCUMENTATION: JOB ID: [id number] [employer]- All Rights Reserved Reading location - IP/workstation name: [email or web address]
[2019-03-03] MEDS ORDERED: LOSARTAN POTASSIUM 50 MG TABLET PO SCH (10:00)
[2019-03-03] MEDS ORDERED: HYDRALAZINE HCL 50 MG TABLET PO SCH (10:00)
[2019-03-03] MEDS: LACTOBACILLUS ACIDOPHILUS 250 MG TAB PO SCH (11:12)
--- NOTE | 2019-03-03 11:12 | PDOC DISCHARGE SUMMARY ---
Impression - Admit/DC Date/PCP Admission Date/Primary Care Provider: 02/23/19 12:18 PATRIC HERNANDES NP Discharge Date: 03/03/19 - Discharge Diagnosis (1) Encephalopathy acute Is this a current diagnosis for this admission?: Yes (2) Acute renal injury Is this a current diagnosis for this admission?: Yes (3) General weakness Is this a current diagnosis for this admission?: Yes (4) Hyponatremia Is this a current diagnosis for this admission?: Yes (5) Bladder cancer Is this a current diagnosis for this admission?: Yes (6) UTI (urinary tract infection) Is this a current diagnosis for this admission?: Yes (7) CHF (congestive heart failure) Is this a current diagnosis for this admission?: Yes (8) Anasarca Is this a current diagnosis for this admission?: Yes (9) Acute and chronic respiratory failure with hypoxia Is this a current diagnosis for this admission?: Yes - Assessment Summary: Encephalopathy-several potential etiologies including the acute kidney injury, congestive heart failure and malignancy. Hyponatremia was also present and appears to be chronic but varying in severity. Encephalopathy has resolved. Acute hypoxic respiratory failure-ambulating on room air the patient's oxygen saturation dropped to 78% while ambulating on room air. At rest with oxygen back in place saturation improved to 94%. He will require 2 L nasal cannula continuous oxygen therapy with a portable system available as well.. Bladder cancer with bilateral cystostomy tubes-it was felt that there might be urinary tract infection. Multiple cultures were infected no growth. The patient has completed a course of antibiotics but this was not likely a pyelonephritis/infection. The collection bags from urostomy tube certainly can grow bacteria as the urine sits there however his cultures were no growth. Acute on chronic congestive heart failure-continue to adjust furosemide. Monitor intake and output. The patient is also on a fluid restriction for his hyponatremia. Anasarca-Albumin is low. The patient also had an exacerbation of congestive heart failure along with acute kidney injury. Anasarca is improving. Generalized weakness-the patient appears to be getting stronger with physical therapy. We have ordered home health for therapy at home along with possible medical equipment including a hospital bed, transfer chair and bedside commode. 03/02/2019-the patient still has intermittent episodes of shortness of breath. He sat up today and felt better. He has been on Lasix and fluid restriction (for hyponatremia). It does not seem likely that it is congestive failure however he has been off of his home losartan and hydralazine with slightly higher blood pressures. I will resume hydralazine and olmesartan and reassess tomorrow. He also uses an albuterol inhaler as needed at home. This may need to be increased. He has been on DuoNeb's every 6 hours and this may need to be more aggressive regimen. Acute on chronic congestive heart failure-as noted above he has had a negative fluid balance. His furosemide is at 40 mg daily. We will continue to monitor intake and output. The patient is still on a 1.5 L fluid restriction. His sodium seems to remain below 135. This may be his new baseline. We will continue to monitor. Anasarca-improving. Low albumin levels are contributing. We are waiting for durable medical equipment to be delivered to the home. Probable discharge tomorrow. - Additional Information Resuscitation Status: Full Code Discharge Diet: Cardiac Discharge Activity: Activity As Tolerated, Balance Activity w/Rest Referrals: PATRIC HERNANDES NP [Primary Care Provider] - 03/09/19 1:00 pm (left a message to call us for appointment) KARMEN HAMMOND MD [ACTIVE STAFF] - 03/09/19 9:30 am Prescriptions: Fluticasone/Salmeterol [Advair HFA 115-21 mcg Inhaler] 2 puff IH BID #1 mdi Fluticasone Propionate [Flonase Nasal [place] 50 Mcg/[place] 16 gm] 1 spray NASL Q12 #1 spray.pump Home Medications: Albuterol Sulfate [Proair HFA Inhalation Aerosol 8.5 gm MDI] 1 puff IH QIDP PRN 02/23/19 Amlodipine Besylate [Norvasc 5 mg Tablet] 5 mg PO DAILY 02/23/19 Ascorbic Acid [Vitamin C 500 mg Tablet] 1,000 mg PO DAILY 02/23/19 Aspirin [Ecotrin 81 mg EC Tablet] 81 mg PO DAILY 02/23/19 Atorvastatin Calcium [Lipitor 20 mg Tablet] 20 mg PO QHS 02/23/19 Calcium Carbonate/Vitamin D3 [Caltrate 600 Plus D3 Tablet] 1 tab PO DAILY 02/23/19 Cholecalciferol (Vitamin D3) [Vitamin D3 1000 Unit Tablet] 1,000 unit PO DAILY 02/23/19 Denosumab [Prolia 60 mg/ml Syr 1 ml] 60 mg SUBCUT .[id number] 02/23/19 Docusate Sodium [Colace 100 mg Capsule] 100 mg PO BIDP PRN 02/23/19 Escitalopram Oxalate [Lexapro 10 mg Tablet] 20 mg PO DAILY 02/23/19 Guaifenesin [Mucinex] 600 mg PO Q12 02/23/19 L.acidoph,Paracasei, B.lactis [Probiotic] 1 each PO DAILY 02/23/19 Multivitamin [Tab-A-Josesito (Multiple Vitamin) Tablet] 1 tab PO DAILY 02/23/19 Nitroglycerin [Nitrostat 0.4 mg (1/150 Gr) Tabs 25/Bottle] 1 tab SL Q5MP PRN 02/23/19 Olmesartan Medoxomil [Benicar] 40 mg PO DAILY 02/23/19 Ubidecarenone [Co Q-10] 200 mg PO QHS 02/23/19 Vitamin B Complex [B Complex] 1 each PO DAILY 02/23/19 Docusate Sodium [Colace 100 mg Capsule] 100 mg PO DAILY capsule 03/03/19 Fluticasone Propionate [Flonase Nasal [place] 50 Mcg/[place] 16 gm] 1 spray NASL Q12 #1 spray.pump 03/03/19 Fluticasone/Salmeterol [Advair HFA 115-21 mcg Inhaler] 2 puff IH BID #1 mdi 03/03/19 Furosemide [Lasix 40 mg Tablet] 40 mg PO DAILY tablet 03/03/19 Hydralazine HCl [Apresoline 50 mg Tablet] 50 mg PO Q12 tablet 03/03/19 Nystatin [Mycostatin Cream 15 gm] 1 applic TP BID tube 03/03/19 Polyethylene Glycol 3350 [Miralax Powder 17 gm/Packet] 17 gm PO DAILY powd.pack 03/03/19 History of Present Illiness History of Present Illness: MARII TAN is a 83 year old male with fairly recent diagnosis of metastatic bladder cancer. He has bilateral nephrostomy tubes. The patient had been experiencing increasing fatigue and developed confusion with hallucinations. He was sent to the emergency room. Fear of a urinary tract infection with bilateral nephrostomy tubes prompted IV antibiotics. There was no pain. X-rays revealed likely atelectasis. Does have a history of heart failure and this could be contributory. He was referred to the hospital service for admission. Hospital Course Hospital Course: Patient had a protracted hospital course. His urine cultures in fact were negative. He had anasarca with low albumin levels. He was diuresed and is improved. There is still a question of pleural effusion. In addition has been quite tired. He now requires oxygen when he did not need oxygen prior to this admission. The patient is still quite weak and so several items of durable medical equipment were approved for the home. He will also have home health for therapy, social work and monitoring the patient in general. He does have an appoint with Dr. Hammond next week and at [facility] later this month. Physical Exam Vital Signs: Temp Pulse Resp BP Pulse Ox 98.3 F 84 20 171/59 H 89 L 03/03/19 07:40 03/03/19 08:01 03/03/19 08:01 03/03/19 07:40 03/03/19 08:01 Intake & Output 03/02/19 03/03/19 03/04/19 06:59 06:59 06:59 Intake Total 630 840 Output Total 1675 1325 Balance -1045 -485 Weight 100.2 kg 101.9 kg General appearance: PRESENT: no acute distress, well-developed Respiratory exam: PRESENT: decreased breath sounds - At bases, symmetrical. ABSENT: rhonchi, tachypnea, wheezes Cardiovascular exam: PRESENT: RRR, +S1, +S2 GI/Abdominal exam: PRESENT: distended - Protuberant abdomen, normal bowel sounds, soft. ABSENT: tenderness Extremities exam: PRESENT: +1 edema Neurological exam: ABSENT: awake - The patient had a fairly sleepless night. Psychiatric exam: ABSENT: agitated Focused psych exam: ABSENT: restlessness Results Laboratory Results: WBC 10.1 10^3/uL (4.0-10.5) 03/02/19 04:29 RBC 3.01 10^6/uL (4.35-5.55) L 03/02/19 04:29 Hgb 9.2 g/dL (13.5-17.0) L 03/02/19 04:29 Hct 27.4 % (37.9-51.0) L 03/02/19 04:29 MCV 91 fl (80-97) 03/02/19 04:29 MCH 30.4 pg (27.0-33.4) 03/02/19 04:29 MCHC 33.4 g/dL (32.0-36.0) 03/02/19 04:29 RDW 18.7 % (11.5-14.0) H 03/02/19 04:29 Plt Count 321 10^3/uL (150-450) 03/02/19 04:29 Lymph % (Auto) 8.5 % (13-45) L 03/02/19 04:29 [place] % (Auto) 9.6 % (3-13) 03/02/19 04:29 Eos % (Auto) 1.1 % (0-6) 03/02/19 04:29 Baso % (Auto) 1.0 % (0-2) 03/02/19 04:29 Absolute Neuts (auto) 8.1 10^3/uL (1.7-8.2) 03/02/19 04:29 Absolute Lymphs (auto) 0.9 10^3/uL (0.5-4.7) 03/02/19 04:29 Absolute Monos (auto) 1.0 10^3/uL (0.1-1.4) 03/02/19 04:29 Absolute Eos (auto) 0.1 10^3/uL (0.0-0.6) 03/02/19 04:29 Absolute Basos (auto) 0.1 10^3/uL (0.0-0.2) 03/02/19 04:29 Seg Neutrophils % 79.8 % (42-78) H 03/02/19 04:29 Carbonic Acid 1.04 mmol/L (1.05-1.35) L 02/23/19 12:45 HCO3/H2CO3 Ratio 19:1 02/23/19 12:45 ABG pH 7.38 (7.35-7.45) 02/23/19 12:45 ABG pCO2 34.6 mmHg (35-45) L 02/23/19 12:45 ABG pO2 71.0 mmHg (80-100) L 02/23/19 12:45 ABG HCO3 20.0 mmol/L (20-24) 02/23/19 12:45 ABG Total CO2 21.0 mmol/L (23-27) L 02/23/19 12:45 ABG O2 Saturation 94.2 % (94-98) 02/23/19 12:45 ABG Base Excess -4.6 mmol/L 02/23/19 12:45 FiO2 ROOM AIR 02/23/19 12:45 Sodium 129.9 mmol/L (137-145) L 03/02/19 04:29 Potassium 4.6 mmol/L (3.6-5.0) 03/02/19 04:29 Chloride 92 mmol/L (98-107) L 03/02/19 04:29 Carbon Dioxide 35 mmol/L (22-30) H 03/02/19 04:29 Anion Gap 3 (5-19) L 03/02/19 04:29 BUN 26 mg/dL (7-20) H 03/02/19 04:29 Creatinine 0.70 mg/dL (0.52-1.25) 03/02/19 04:29 Est GFR ( Amer) > 60 (>60) 03/02/19 04:29 Est GFR (MDRD) Non-Af > 60 (>60) 03/02/19 04:29 Glucose 122 mg/dL (75-110) H 03/02/19 04:29 POC Glucose 178 mg/dL (70-110) H 03/02/19 11:58 Calcium 8.3 mg/dL (8.4-10.2) L 03/02/19 04:29 Phosphorus 3.9 mg/dL (2.5-4.5) 02/23/19 00:38 Magnesium 2.0 mg/dL (1.6-2.3) 02/23/19 00:38 Total Bilirubin 0.2 mg/dL (0.2-1.3) 02/27/19 04:14 Direct Bilirubin 0.1 mg/dL (0.0-0.4) 02/27/19 04:14 Neonat Total Bilirubin Not Reportable 02/27/19 04:14 Neonat Direct Bilirubin Not Reportable 02/27/19 04:14 Neonat Indirect Bili Not Reportable 02/27/19 04:14 AST 27 U/L (17-59) 02/27/19 04:14 ALT 16 U/L (<50) 02/27/19 04:14 Alkaline Phosphatase 65 U/L (38-126) 02/27/19 04:14 NT-Pro-B Natriuret Pep 2130 pg/mL (<450) H 02/23/19 06:50 Total Protein 5.2 g/dL (6.3-8.2) L 02/27/19 04:14 Albumin 2.7 g/dL (3.5-5.0) L 02/27/19 04:14 TSH 2.11 uIU/mL (0.47-4.68) 02/24/19 04:10 Urine Color YELLOW 02/23/19 13:13 Urine Appearance CLOUDY 02/23/19 13:13 Urine pH 5.0 (5.0-9.0) 02/23/19 13:13 Ur Specific [place] 1.019 02/23/19 13:13 Urine Protein 30 mg/dL (NEGATIVE) H 02/23/19 13:13 Urine Glucose (UA) NEGATIVE mg/dL (NEGATIVE) 02/23/19 13:13 Urine Ketones NEGATIVE mg/dL (NEGATIVE) 02/23/19 13:13 Urine Blood NEGATIVE (NEGATIVE) 02/23/19 13:13 Urine Nitrite NEGATIVE (NEGATIVE) 02/23/19 13:13 Urine Bilirubin NEGATIVE (NEGATIVE) 02/23/19 13:13 Urine Urobilinogen NEGATIVE mg/dL (<2.0) 02/23/19 13:13 Ur Leukocyte Esterase MODERATE (NEGATIVE) H 02/23/19 13:13 Urine WBC (Auto) 9 /HPF 02/23/19 13:13 Urine RBC (Auto) 8 /HPF 02/23/19 13:13 U Hyaline Cast (Auto) 1 /LPF 02/23/19 13:13 Urine Bacteria (Auto) TRACE /HPF 02/23/19 13:13 Amorphous Sediment Auto TRACE /HPF 02/23/19 13:13 Urine Mucus (Auto) RARE /LPF 02/23/19 13:13 Urine Ascorbic Acid 40 (NEGATIVE) H 02/23/19 13:13 02/23/19 06:50 NT-Pro-B Natriuret Pep 2130 H Impressions: Head CT 02/22/19 20:02 IMPRESSION: 1. No acute intracranial findings. Chest X-Ray 02/22/19 20:03 IMPRESSION: copyright 2011 [employer]- All Rights Reserved Abdomen/Pelvis CT 02/23/19 00:00 IMPRESSION: Bilateral nephrostomy catheters are in place without hydronephrosis or hydroureter. Markedly abnormal urinary bladder and seminal vesicles. Findings worrisome for bladder tumor involvement in the inferior aspect left rectus muscle sheath. Extravesical extension of bladder tumor into the pelvic fat over the left bladder dome. Chest X-Ray 02/28/19 00:00 IMPRESSION: Bibasilar pleural and parenchymal opacities that could represent a combination of pleural fluid, atelectasis and in the proper clinical setting consolidation ; these findings are increased compared to the radiograph from 02/22/2019. Chest X-Ray 03/03/19 00:00 IMPRESSION: Stable chest with low volumes and persistent patchy bibasilar opacities and mild effusions. Plan Health Concerns: The patient will receive his next cycle of immunotherapy. He has a follow-up at [facility] later this month. There is significant concern that his condition will only deteriorate. Plan of Treatment: The patient was resumed on his previous medications with the exception of a lower dose of hydralazine (50 mg twice daily instead of 100) and a slightly higher dose of furosemide (40 mg daily as opposed to 20 mg previously). Follow- up with Dr. Hammond and [facility] as noted above Goals: The patient's would like to see his overall condition improved. We did discuss some realistic expectations. Please see advanced care planning note. Time Spent: Greater than 30 Minutes Stroke Is this a Stroke Patient?: No Acute Heart Failure - Is this a Heart Failure Patient?: Yes Documentation of LVEF assessment?: Yes LVEF < 40%?: No- if no continue to question #3 3. Anticoagulant therapy for permanect/persistent/paraoxysmal Afib or Aflutter: N/A Follow-up Appointment scheduled within 7 days?: Yes
[2019-03-03] MEDS: ASPIRIN 81 MG TABLET, ENT COATED PO SCH (11:13)
[2019-03-03] MEDS: POLYETHYLENE GLYCOL 3350 POWDER 17 GM/1 PACKET PO SCH (11:13)
[2019-03-03] MEDS: AMLODIPINE BESYLATE 5 MG TABLET PO SCH (11:13)
[2019-03-03] MEDS: GUAIFENESIN 600 MG TABLET.SA PO SCH (11:14)
[2019-03-03] MEDS: DOCUSATE SODIUM 100 MG CAPSULE PO SCH (11:14)
[2019-03-03] MEDS: FLUTICASONE NASAL SPRAY 50 MCG/SPRY 120 SPRAY/16 GM NASL SCH (11:14)
[2019-03-03] MEDS: FUROSEMIDE 40 MG TABLET PO SCH (11:14)
[2019-03-03] MEDS: NYSTATIN CREAM 15 GM TP SCH (11:15)
--- NOTE | 2019-03-03 12:04 | ADVANCED CARE ---
- Diagnosis (1) Encephalopathy acute Diagnosis Current: Yes (2) Acute renal injury Diagnosis Current: Yes (3) General weakness Diagnosis Current: Yes (4) Hyponatremia Diagnosis Current: Yes (5) Bladder cancer Diagnosis Current: Yes (6) UTI (urinary tract infection) Diagnosis Current: Yes (7) CHF (congestive heart failure) Diagnosis Current: Yes (8) Anasarca Diagnosis Current: Yes (9) Acute and chronic respiratory failure with hypoxia Diagnosis Current: Yes Attendance: Discussion was had with the patient's at the patient's bedside Resuscitation Status: Full Code Discussion: I did asked the patient's about his quality of life prior to this illness. He has had a difficult past couple of years with the of his daughter and his own illness. His urologist had treated him with prostate cancer earlier and there was no recurrence. Unfortunately he had hematuria that persisted and evaluation in [place] revealed stage IV bladder cancer. The patient has 2 nephrostomy tubes. This is very discouraging. This is not the quality of life that the patient would want. His does understand that he may have no improvement at his [facility] follow-up. She is starting to realize that his overall condition is not likely to improve significantly. She is worried about the devastating effects of reevaluation at [facility] showing increased lesions and set of improvement. Care Planning Goals: The patient's has worked with hospice in the past. As noted his daughter previously passed with breast cancer. The patient's is basically awaiting the reevaluation at [facility]. I did suggest a palliative care consult at least for informational purposes. She will ask Dr. Hinson at the office visit next week. Document(s) Completed: None Time Spent: 25 minutes
[2019-03-03 14:03] VITALS: BP 150/62
== END 2019-03-03 14:32 | disposition home health service (06) | DRG 682 ==
LOC: ER 13:37 → EH 22:29 → INTOOBSV 22:29 → 3S 02-23 03:16 → OBSVTOIN 02-23 12:18
PROVIDERS: ADMIT Internal Medicine; ATTEND Internal Medicine
DX: N17.9 Acute kidney failure, unspecified (principal); J96.21 Acute and chronic respiratory failure with hypoxia; G93.41 Metabolic encephalopathy; I50.31 Acute diastolic (congestive) heart failure; E87.1 Hypo-osmolality and hyponatremia; C67.4 Malignant neoplasm of posterior wall of bladder; I25.10 Atherosclerotic heart disease of native coronary artery without angina pectoris; I44.7 Left bundle-branch block, unspecified; I11.0 Hypertensive heart disease with heart failure; E78.5 Hyperlipidemia, unspecified; K59.00 Constipation, unspecified; I25.2 Old myocardial infarction; Z79.899 Other long term (current) drug therapy; Z79.82 Long term (current) use of aspirin; Z95.5 Presence of coronary angioplasty implant and graft; Z87.891 Personal history of nicotine dependence; Z88.2 Allergy status to sulfonamides; Z82.49 Family history of ischemic heart disease and other diseases of the circulatory system; Z92.3 Personal history of irradiation
CPT/HCPCS: 36415; 36591; 36600; 70450; 71045; 74177; 80048; 80053; 81001; 82803; 82962; 83735; 83880; 84100; 84443; 85025; 85027; 87040; 87086; 93005; 93010; 93306; 93971; 94640; 94799; 99285; G0378; J0692; J1642; J1644; J1940; J2930; J3490; J7030; J7620

== ENCOUNTER 2019-03-04 09:35 | Inpatient (IN) | payer OTHER, MEDICARE ==
[2019-03-04] MEDS ORDERED: CEFTRIAXONE 2 GM/D5W RTU 2 GM/50 ML RTUPB IV ONE (10:05)
--- NOTE | 2019-03-04 10:19 | ER Document Report ---
ED Respiratory Problem - General Stated Complaint: DIFFICULTY BREATHING Time Seen by Provider: 03/04/19 10:01 Primary Care Provider: PATRIC HERNANDES NP [Primary Care Provider] - Follow up as needed Notes: Patient is here because of low oxygen level. He just spent 6 days in the hospital here being treated for UTI and was discharged home yesterday. says that his oxygen level was slightly low at the time he is being discharged so arrangements were made for him to have oxygen at home at 2L. He seemed to do well with his breathing yesterday afternoon after getting home, but this morning, visiting nurse found his oxygen level to be very low at 84% and they called EMS to bring him here. On the way to the hospital, patient received 2 nebulizer treatments with albuterol and Atrovent and got 125 mg of Solu-Medrol IM. says that patient has never been told he had COPD until he was discharged yesterday. Was a smoker but stopped 50 years ago. No other history of respiratory disease. Patient has a history of cancer of the prostate treated many years ago. Also has a history of bladder cancer for which he has bilateral nephrostomy tubes and is getting immunotherapy by Dr. Hinson. TRAVEL OUTSIDE OF THE [place] IN LAST 30 DAYS: No - Related Data Allergies/Adverse Reactions: sulfamethoxazole [From Bactrim] Allergy (Verified 02/22/19 14:00) trimethoprim [From Bactrim] Allergy (Verified 02/22/19 14:00) Past Medical History - Social History Smoking Status: Unknown if Ever Smoked Family History: Reviewed & Not Pertinent, Hypertension - Past Medical History Cardiac Medical History: Reports: Hx Coronary Artery Disease - STENTS, Hx Hypertension Denies: Hx Heart Attack Pulmonary Medical History: Reports: Hx COPD Malignancy Medical History: Reports Hx Prostate Cancer, Reports Other - Bladder cancer receiving immunotherapy. Has bilateral nephrostomy tubes Musculoskeletal Medical History: Denies Hx Arthritis Past Surgical History: Reports: Hx Cardiac Catheterization, Hx Tonsillectomy, Hx Urinary Tract Surgery - prostate radiation, bladder stone removedComment Only: Hx Cardiac Surgery - stent x 5 Review of Systems - Review of Systems Notes: REVIEW OF SYSTEMS: Much of it provided by . CONSTITUTIONAL : Denies fever. EENT: Denies eye, ear, nose or mouth or throat pain or other symptoms. CARDIOVASCULAR: Denies chest pain. RESPIRATORY: See HPI. GASTROINTESTINAL: Denies abdominal pain or nausea, vomiting, or diarrhea. GENITOURINARY: Denies difficulty or painful urinating, urinary frequency, blood in urine. MUSCULOSKELETAL: Denies back or neck pain. Denies joint pain or swelling. SKIN: Denies rash or skin lesions. NEUROLOGICAL: Denies LOC or altered mental status. Denies headache. Denies sensory loss or motor deficits. ALL OTHER SYSTEMS REVIEWED AND NEGATIVE. Physical Exam - Vital signs Vitals: Resp 18 03/04/19 09:40 Interpretation: Hypoxic - O2 sat 86% on room air here Notes: PHYSICAL EXAMINATION: O2 sat 86% on room air. GENERAL: Quiet, ask sleepy, in no acute distress. HEAD: Atraumatic, normocephalic. EYES: Pupils equal round and reactive to light, extraocular movements intact. ENT: oropharynx clear without exudates. Moist mucous membranes. NECK: Normal range of motion, supple. LUNGS: Breath sounds decreased bilaterally. Poor airflow bilaterally. HEART: Regular rate and rhythm without murmurs. ABDOMEN: Soft, nontender. No guarding or rebound. No masses. Bilateral nephrostomy tubes BACK: No tenderness throughout entire back. EXTREMITIES: Normal range of motion without pain. Minor pitting edema bilaterally. Negative Homans. NEUROLOGICAL: Somnolent. Seems to be hard of hearing. Moves all 4 extremities. Grossly normal sensory, motor, and reflex exams. SKIN: Warm, dry, no rashes. Course - Re-evaluation Re-evalutation: 03/04/19 12:04 Patient started on BiPAP soon after his arrival. Spoke with Dr. Acevedo and also with the hospitalist who will readmit the patient to [facility]. Given 2 g of Rocephin IV and 40 mg of Lasix IV. - Vital Signs Vital signs: Temp Pulse Resp BP Pulse Ox 22 H 127/73 H 86 L 03/04/19 10:01 03/04/19 10:01 03/04/19 10:01 - Laboratory Result Diagrams: 03/04/19 10:10 03/04/19 10:10 Laboratory results interpreted by me: 03/04/19 03/04/19 03/04/19 10:10 10:10 10:10 WBC 13.3 H RBC 3.18 L Hgb 9.5 L Hct 29.3 L RDW 19.2 H Lymph % (Auto) 7.1 L Absolute Neuts (auto) 11.6 H Seg Neutrophils % 86.8 H Sodium 130.5 L Potassium 5.2 H Chloride 91 L Carbon Dioxide 35 H BUN 28 H Glucose 161 H Creatine Kinase 21 L NT-Pro-B Natriuret Pep 1580 H Total Protein 5.6 L Albumin 2.9 L - Diagnostic Test Radiology reviewed: Image reviewed, Reports reviewed - Bilateral pleural e ffusions and bibasilar infiltrates. - EKG Interpretation by Me EKG shows normal: Sinus rhythm Rate: Normal Rhythm: NSR [place]/QRS: LBBB Critical Care Note - Critical Care Note Total time excluding time spent on procedures (mins): 40 Discharge - Discharge Clinical Impression: Hypoxia, Chronic bilateral pleural effusions, Pneumonia, Bladder cancer Condition: Poor Disposition: ADMITTED INPATIENT Admitting Provider: Ricco (Hospitalist) Unit Admitted: IMCU Referrals: PATRIC HERNANDES NP [Primary Care Provider] - Follow up as needed
--- NOTE | 2019-03-04 10:29 | RADIOLOGY REPORT (SQ) ---
EXAM DESCRIPTION: CHEST SINGLE VIEW COMPLETED DATE/TIME: 03/04/2019 9:53 am REASON FOR STUDY: SOB COMPARISON: 03/03/2019. NUMBER OF VIEWS: One view. TECHNIQUE: Single frontal radiographic view of the chest acquired. LIMITATIONS: None. FINDINGS: LUNGS AND PLEURA: Basilar airspace disease and pleural effusions, unchanged. MEDIASTINUM AND HILAR STRUCTURES: No masses or contour abnormality. HEART AND VASCULATURE: Cardiac enlargement. Vascular congestion. BONES: No acute findings. Degenerative changes in the spine. HARDWARE: Vascular port. OTHER: No other significant finding. IMPRESSION: NO CHANGE IN APPEARANCE OF THE CHEST. CARDIOMEGALY WITH VASCULAR CONGESTION AND PLEURAL EFFUSIONS. TECHNICAL DOCUMENTATION: JOB ID: [id number] [employer]- All Rights Reserved Reading location - IP/workstation name: [email or web address]
[2019-03-04 10:31] LABS: ABSOLUTE LYMPHOCYTES (AUTO) 0.9 10^3/uL (0.5-4.7); ABSOLUTE MONOCYTES (AUTO) 0.8 10^3/uL (0.1-1.4); ABSOLUTE NEUT (AUTO) 11.6 10^3/uL (1.7-8.2); BASOPHILS % (AUTO) 0.1 % (0-2); HEMATOCRIT 29.3 % (37.9-51.0); HEMOGLOBIN 9.5 g/dL (13.5-17.0); LYMPHOCYTES % (AUTO) 7.1 % (13-45); MEAN CORPUSCULAR HEMOGLOBIN 29.8 pg (27.0-33.4); MEAN CORPUSCULAR HGB CONC 32.3 g/dL (32.0-36.0); MEAN CORPUSCULAR VOLUME 92 fl (80-97); PLATELET COUNT 350 10^3/uL (150-450); RED BLOOD COUNT 3.18 10^6/uL (4.35-5.55); RED CELL DISTRIBUTION WIDTH 19.2 % (11.5-14.0); SEGMENTED NEUTROPHILS % (AUTO) 86.8 % (42-78); TOTAL CELLS COUNTED % (AUTO) 100 %; WHITE BLOOD COUNT 13.3 10^3/uL (4.0-10.5)
[2019-03-04] MEDS ORDERED: FUROSEMIDE INJ/PF 40 MG/4 ML SDV IV ONE (10:32)
[2019-03-04 11:02] LABS: ALBUMIN 2.9 g/dL (3.5-5.0); ALKALINE PHOSPHATASE 84 U/L (38-126); ANION GAP 5 (5-19); ASPARTATE AMINO TRANSFERASE 23 U/L (17-59); BILIRUBIN,DIRECT 0.2 mg/dL (0.0-0.4); BILIRUBIN,TOTAL 0.2 mg/dL (0.2-1.3); BLOOD UREA NITROGEN 28 mg/dL (7-20); CALCIUM 8.8 mg/dL (8.4-10.2); CARBON DIOXIDE 35 mmol/L (22-30); CHLORIDE 91 mmol/L (98-107); CREATINE KINASE 21 U/L (55-170); GLUCOSE 161 mg/dL (75-110); POTASSIUM 5.2 mmol/L (3.6-5.0); TOTAL PROTEIN 5.6 g/dL (6.3-8.2)
[2019-03-04 11:24] LABS: CREATINE KINASE MB 1.45 ng/mL (<4.55)
[2019-03-04 11:30] LABS: TROPONIN I < 0.012 ng/mL
[2019-03-04 13:07] LABS: APPEARANCE,URINE SLIGHTLY-CLOUDY; BILIRUBIN,URINE NEGATIVE (NEGATIVE); COLOR,URINE YELLOW; GLUCOSE, URINE NEGATIVE (NEGATIVE); KETONES,URINE NEGATIVE (NEGATIVE); LEUKOCYTE ESTERASE,URINE SMALL (NEGATIVE); NITRITE,URINE NEGATIVE (NEGATIVE); PROTEIN,URINE 30 mg/dL (NEGATIVE); URINE SPECIFIC GRAVITY 1.019; UROBILINOGEN,URINE NEGATIVE mg/dL (<2.0)
--- NOTE | 2019-03-04 14:20 | PDOC CONSULTATION ---
Consultation Consult Date: 03/04/19 Attending physician:: JARRED ROLDAN Provider Consulted: KARMEN HAMMOND Consult reason:: Patient with unresectable bladder cancer currently on immunotherapy History of Present Illness Admission Date/PCP: 03/04/19 12:25 PATRIC HERNANDES NP Patient complains of: Shortness of breath, increasing oxygen needs History of Present Illness: MARII TAN is a 83 year old male with known history of unresectable bladder cancer, he was started on immunotherapy and had his first dose now about 3 weeks ago, he was admitted just last week for a prolonged admission for urosepsis, ultimately secondary to infected left nephrostomy tube, that infection was improved and patient was discharged with home O2 as well as follow-up with us. Unfortunately about 24 hours after discharge, patient had increasing shortness of breath, increasing oxygen needs and ultimately was seen by his home health care nurse who recommended that he presented back to the ED. Upon presentation he was satting 85% on 2 L of oxygen, so patient was placed on BiPAP. He seems to be doing better. Past Medical History Cardiac Medical History: Reports: Coronary Artery Disease - STENTS, Hypertension Denies: Myocardial Infarction Pulmonary Medical History: Reports: Chronic Obstructive Pulmonary Disease (COPD) Denies: Asthma, Bronchitis, Pneumonia Neurological Medical History: Denies: Seizures Malignancy Medical History: Reports: Other - Bladder cancer receiving immunotherapy. Has bilateral nephrostomy tubes Musculoskeltal Medical History: Denies: Arthritis Hematology: Denies: Anemia Past Surgical History Past Surgical History: Reports: Cardiac Catheterization, Tonsillectomy Social History Information Source: Patient Smoking Status: Unknown if Ever Smoked Electronic Cigarette use?: No Frequency of Alcohol Use: None Hx Recreational Drug Use: No Drugs: None Hx Prescription Drug Abuse: No - Advance Directive Resuscitation Status: Do Not Resuscitate Family History Family History: Reviewed & Not Pertinent, Hypertension Parental Family History Reviewed: Yes Children Family History Reviewed: Yes Sibling(s) Family History Reviewed.: Yes Medication/Allergy Home Medications: Albuterol Sulfate [Proair HFA Inhalation Aerosol 8.5 gm MDI] 1 puff IH QIDP PRN 03/04/19 Amlodipine Besylate [Norvasc 5 mg Tablet] 5 mg PO DAILY 03/04/19 Ascorbic Acid [Vitamin C 500 mg Tablet] 1,000 mg PO DAILY 03/04/19 Aspirin [Ecotrin 81 mg EC Tablet] 81 mg PO DAILY 03/04/19 Atorvastatin Calcium [Lipitor 20 mg Tablet] 20 mg PO QHS 03/04/19 Calcium Carbonate/Vitamin D3 [Caltrate 600 Plus D3 Tablet] 1 tab PO DAILY 03/04/19 Cholecalciferol (Vitamin D3) [Vitamin D3 1000 Unit Tablet] 1,000 unit PO DAILY 03/04/19 Denosumab [Prolia 60 mg/ml Syr 1 ml] 60 mg [id number] 03/04/19 Docusate Sodium [Colace 100 mg Capsule] 100 mg PO DAILY 03/04/19 Escitalopram Oxalate [Lexapro 10 mg Tablet] 20 mg PO DAILY 03/04/19 Fluticasone Propionate [Flonase Nasal [place] 50 Mcg/[place] 16 gm] 1 spray NASL Q12 03/04/19 Fluticasone/Salmeterol [Advair HFA 115-21 mcg Inhaler] 2 puff IH BID 03/04/19 Furosemide [Lasix 40 mg Tablet] 40 mg PO DAILY 03/04/19 Guaifenesin [Mucinex] 600 mg PO Q12 03/04/19 Hydralazine HCl [Apresoline 50 mg Tablet] 50 mg PO Q12 03/04/19 L.acidoph,Paracasei, B.lactis [Probiotic] 1 cap PO DAILY 03/04/19 Multivitamin [Daily Multiple Vitamin] 1 tab PO DAILY 03/04/19 Nitroglycerin [Nitrostat 0.4 mg (1/150 Gr) Tabs 25/Bottle] 0.4 mg SL Q5MP PRN 03/04/19 Nystatin [Mycostatin Cream 15 gm] 1 applic TOP BID 03/04/19 Olmesartan Medoxomil [Benicar] 40 mg PO DAILY 03/04/19 Polyethylene Glycol 3350 [Miralax Powder 17 gm/Packet] 17 gm PO DAILY 03/04/19 Ubidecarenone [Co Q-10] 200 mg PO QHS 03/04/19 Vit B Comp/C/Folic/Iron/Vit E [Vitamin B Complex Tablet] 1 tab PO DAILY 03/04/19 Allergies/Adverse Reactions: sulfamethoxazole [From Bactrim] Allergy (Verified 02/22/19 14:00) trimethoprim [From Bactrim] Allergy (Verified 02/22/19 14:00) Review of Systems ROS unobtainable: Due to mental status Physical Exam Vital Signs: Temp Pulse Resp BP Pulse Ox 98.3 F 89 22 H 135/51 H 96 03/04/19 14:05 03/04/19 14:05 03/04/19 14:05 03/04/19 14:05 03/04/19 14:05 Intake & Output 03/03/19 03/04/19 03/05/19 06:59 06:59 06:59 Intake Total 50 Balance 50 Weight 100.4 kg General appearance: PRESENT: no acute distress, well-developed, well-nourished Head exam: PRESENT: atraumatic, normocephalic Eye exam: PRESENT: conjunctiva pink, EOMI, PERRLA. ABSENT: scleral icterus Ear exam: PRESENT: normal external ear exam Mouth exam: PRESENT: moist, tongue midline Neck exam: ABSENT: carotid bruit, JVD, lymphadenopathy, thyromegaly Respiratory exam: PRESENT: clear to auscultation kamlesh. ABSENT: rales, rhonchi, wheezes Cardiovascular exam: PRESENT: RRR. ABSENT: diastolic murmur, rubs, systolic murmur Pulses: PRESENT: normal dorsalis pedis pul Vascular exam: PRESENT: normal capillary refill GI/Abdominal exam: PRESENT: normal bowel sounds, soft. ABSENT: distended, guarding, mass, organolmegaly, rebound, tenderness Rectal exam: PRESENT: deferred Extremities exam: PRESENT: full ROM. ABSENT: calf tenderness, clubbing, pedal edema Neurological exam: PRESENT: alert, awake, oriented to person, oriented to place, oriented to time, oriented to situation, CN II-XII grossly intact. ABSENT: motor sensory deficit Psychiatric exam: PRESENT: appropriate affect, normal mood. ABSENT: homicidal ideation, suicidal ideation Skin exam: PRESENT: dry, intact, warm. ABSENT: cyanosis, rash Results Laboratory Results: 03/04/19 10:10 03/04/19 10:10 03/04/19 03/04/19 03/04/19 10:10 10:10 12:35 WBC 13.3 H RBC 3.18 L Hgb 9.5 L Hct 29.3 L MCV 92 MCH 29.8 MCHC 32.3 RDW 19.2 H Plt Count 350 Seg Neutrophils % 86.8 H Sodium 130.5 L Potassium 5.2 H Chloride 91 L Carbon Dioxide 35 H Anion Gap 5 BUN 28 H Creatinine 0.65 Est GFR ( Amer) > 60 Glucose 161 H Calcium 8.8 Total Bilirubin 0.2 AST 23 Alkaline Phosphatase 84 Total Protein 5.6 L Albumin 2.9 L Urine Color YELLOW Urine Appearance SLIGHTLY-CLOUDY Urine pH 6.0 Ur Specific [place] 1.019 Urine Protein 30 H Urine Glucose (UA) NEGATIVE Urine Ketones NEGATIVE Urine Blood SMALL H Urine Nitrite NEGATIVE Ur Leukocyte Esterase SMALL H Urine WBC (Auto) 14 Urine RBC (Auto) 34 03/04/19 03/04/19 03/04/19 10:10 10:10 10:10 Creatine Kinase 21 L CK-MB (CK-2) 1.45 Troponin I < 0.012 NT-Pro-B Natriuret Pep 1580 H Impressions: Chest X-Ray 03/04/19 09:37 IMPRESSION: NO CHANGE IN APPEARANCE OF THE CHEST. CARDIOMEGALY WITH VASCULAR CONGESTION AND PLEURAL EFFUSIONS. Assessment & Plan - Diagnosis (1) Acute and chronic respiratory failure with hypoxia Is this a current diagnosis for this admission?: Yes Plan: Likely secondary to pulmonary edema and fluid overload, he did have diastolic dysfunction on echocardiogram, was given gentle diuresis with Lasix on previous admission but this is worsened since discharge. He was given 40 mg of IV Lasix in the ED and awaiting diuresis on that. Continue with BiPAP per hospitalist team. (2) CHF (congestive heart failure) Qualifiers: Heart failure type: diastolic Heart failure chronicity: acute on chronic Qualified Code(s): I50.33 - Acute on chronic diastolic (congestive) heart failure Is this a current diagnosis for this admission?: Yes Plan: Probable acute on chronic diastolic dysfunction CHF exacerbation, continue per hospitalist team (3) Bladder cancer Qualifiers: Bladder location: posterior wall Is this a current diagnosis for this admission?: Yes Plan: Unresectable bladder cancer, he was only a candidate for immunotherapy but now with repeated admissions unsure if we can get to further therapy. We will hold on therapy this week, discuss further on next steps of care during this admission. - Time Time Spent: Greater than 70 Minutes - Inpatient Certification Based on my medical assessment, after consideration of the patient's comorbidities, presenting symptoms, or acuity I expect that the services needed warrant INPATIENT care.: Yes I certify that my determination is in accordance with my understanding of Medicare's requirements for reasonable and necessary INPATIENT services [42 CFR 412.3e].: Yes Medical Necessity: Need For Continuous Telemetry Monitoring, Need for Nebulizer Therapy and Monitoring of Response, Risk of Complication if Not Cared For in Hospital
--- NOTE | 2019-03-04 14:23 | ADVANCED CARE ---
- Diagnosis (1) Acute and chronic respiratory failure with hypoxia Diagnosis Current: Yes (2) CHF (congestive heart failure) Diagnosis Current: Yes (3) Bladder cancer Diagnosis Current: Yes Attendance: and patient agreed to DNR Resuscitation Status: Do Not Resuscitate
[2019-03-04] MEDS ORDERED: ONDANSETRON 4 MG TAB.RAPDIS PO PRN (14:56)
[2019-03-04] MEDS ORDERED: MAG HYDROX/AL HYDROX/SIMETH SUSP 30 ML UDCUP PO PRN (14:56)
[2019-03-04] MEDS ORDERED: ACETAMINOPHEN 325 MG TABLET PO PRN (14:56)
[2019-03-04] MEDS ORDERED: NITROGLYCERIN 0.4 MG/TAB 25 TAB/BOTTLE SL PRN (15:10)
--- NOTE | 2019-03-04 15:13 | PDOC H&P ---
History of Present Illness Admission Date/PCP: 03/04/19 12:25 PATRIC HERNANDES NP Patient complains of: Returns to hospital after discharge yesterday. Increased shortness of breath. History of Present Illness: MARII TAN is a 83 year old male who was discharged from the hospital yesterday. He has been struggling with metastatic bladder cancer and was treat ed for congestive heart failure, anasarca and urinary infection. He has bilateral nephrostomy tubes. When he got home yesterday his reports that he was comfortable. This morning when the home health nurse visited she was alarmed that he was hypoxic and called EMS. The patient's oxygen saturation on room air was quite low and even on 2 L was under 90%. At 4 L it improved but he is still quite orthopneic. He has a pleural effusion on the right that possibly is larger. He remains on nasal cannula. He was referred to the hospital service for admission. Past Medical History Cardiac Medical History: Reports: Coronary Artery Disease - STENTS, Hypertension Denies: Myocardial Infarction Pulmonary Medical History: Reports: Chronic Obstructive Pulmonary Disease (COPD) Denies: Asthma, Bronchitis, Pneumonia Neurological Medical History: Denies: Seizures Renal/ Medical History: Reports: Other - Stage IV bladder cancer Malignancy Medical History: Reports: Other - Bladder cancer receiving immunotherapy. Has bilateral nephrostomy tubes Musculoskeltal Medical History: Denies: Arthritis Skin Medical History: Denies: Eczema, Psoriasis Psychiatric Medical History: Denies: Alcohol Dependency, Dementia Hematology: Denies: Anemia Infectious Medical History: Denies: Methicillin-Resistant Staph Aureus Past Surgical History Past Surgical History: Reports: Cardiac Catheterization, Tonsillectomy, Other - Bilateral nephrostomy tubes Social History Information Source: Patient, Relative, [facility], [facility] Records Lives with: Spouse/Significant other Smoking Status: Unknown if Ever Smoked Electronic Cigarette use?: No Frequency of Alcohol Use: None Hx Recreational Drug Use: No Drugs: None Hx Prescription Drug Abuse: No - Advance Directive Resuscitation Status: Do Not Resuscitate Surrogate healthcare decision maker:: After discussion with Dr. Hinson the patient and his have agreed to DO NOT RESUSCITATE status starting with this admission. Palliative care/hospice consult might be appropriate. Family History Family History: Reviewed & Not Pertinent, Hypertension, Malignancy Parental Family History Reviewed: Yes Children Family History Reviewed: Yes Sibling(s) Family History Reviewed.: Yes Medication/Allergy Home Medications: Albuterol Sulfate [Proair HFA Inhalation Aerosol 8.5 gm MDI] 1 puff IH QIDP PRN 03/04/19 Amlodipine Besylate [Norvasc 5 mg Tablet] 5 mg PO DAILY 03/04/19 Ascorbic Acid [Vitamin C 500 mg Tablet] 1,000 mg PO DAILY 03/04/19 Aspirin [Ecotrin 81 mg EC Tablet] 81 mg PO DAILY 03/04/19 Atorvastatin Calcium [Lipitor 20 mg Tablet] 20 mg PO QHS 03/04/19 Calcium Carbonate/Vitamin D3 [Caltrate 600 Plus D3 Tablet] 1 tab PO DAILY 03/04/19 Cholecalciferol (Vitamin D3) [Vitamin D3 1000 Unit Tablet] 1,000 unit PO DAILY 03/04/19 Denosumab [Prolia 60 mg/ml Syr 1 ml] 60 mg [id number] 03/04/19 Docusate Sodium [Colace 100 mg Capsule] 100 mg PO DAILY 03/04/19 Escitalopram Oxalate [Lexapro 10 mg Tablet] 20 mg PO DAILY 03/04/19 Fluticasone Propionate [Flonase Nasal [place] 50 Mcg/[place] 16 gm] 1 spray NASL Q12 03/04/19 Fluticasone/Salmeterol [Advair HFA 115-21 mcg Inhaler] 2 puff IH BID 03/04/19 Furosemide [Lasix 40 mg Tablet] 40 mg PO DAILY 03/04/19 Guaifenesin [Mucinex] 600 mg PO Q12 03/04/19 Hydralazine HCl [Apresoline 50 mg Tablet] 50 mg PO Q12 03/04/19 L.acidoph,Paracasei, B.lactis [Probiotic] 1 cap PO DAILY 03/04/19 Multivitamin [Daily Multiple Vitamin] 1 tab PO DAILY 03/04/19 Nitroglycerin [Nitrostat 0.4 mg (1/150 Gr) Tabs 25/Bottle] 0.4 mg SL Q5MP PRN 03/04/19 Nystatin [Mycostatin Cream 15 gm] 1 applic TOP BID 03/04/19 Olmesartan Medoxomil [Benicar] 40 mg PO DAILY 03/04/19 Polyethylene Glycol 3350 [Miralax Powder 17 gm/Packet] 17 gm PO DAILY 03/04/19 Ubidecarenone [Co Q-10] 200 mg PO QHS 03/04/19 Vit B Comp/C/Folic/Iron/Vit E [Vitamin B Complex Tablet] 1 tab PO DAILY 03/04/19 Allergies/Adverse Reactions: sulfamethoxazole [From Bactrim] Allergy (Verified 02/22/19 14:00) trimethoprim [From Bactrim] Allergy (Verified 02/22/19 14:00) Review of Systems Constitutional: PRESENT: fatigue. ABSENT: chills, fever(s), headache(s) Eyes: ABSENT: visual disturbances Ears: ABSENT: hearing changes Nose, Mouth, and Throat: ABSENT: headache(s), sore throat Cardiovascular: PRESENT: dyspnea on exertion, edema - Improved, orthropnea - Worsened. ABSENT: chest pain Respiratory: PRESENT: cough, dyspnea. ABSENT: hemoptysis, sputum Gastrointestinal: ABSENT: constipation, diarrhea, heartburn, nausea, vomiting Genitourinary: PRESENT: other - Bilateral nephrostomy tubes. ABSENT: hematuria Musculoskeletal: ABSENT: deformity, joint swelling Integumentary: ABSENT: erythema, lesions, rash, wounds Neurological: PRESENT: abnormal speech - Secondary to shortness of breath. ABSENT: confusion, convulsions, memory loss, syncope Psychiatric: ABSENT: anxiety, depression Endocrine: PRESENT: as per HPI Hematologic/Lymphatic: PRESENT: as per HPI Allergic/Immunologic: ABSENT: seasonal rhinorrhea Physical Exam Vital Signs: Temp Pulse Resp BP Pulse Ox 98.3 F 89 22 H 135/51 H 96 03/04/19 14:05 03/04/19 14:05 03/04/19 14:05 03/04/19 14:05 03/04/19 14:05 Intake & Output 03/03/19 03/04/19 03/05/19 06:59 06:59 06:59 Intake Total 50 Balance 50 Weight 100.4 kg General appearance: PRESENT: cooperative, mild distress, well-developed Head exam: PRESENT: atraumatic, normocephalic Eye exam: PRESENT: conjunctiva pink. ABSENT: scleral icterus Ear exam: PRESENT: normal external ear exam. ABSENT: bleeding, drainage Mouth exam: PRESENT: dry mucosa, tongue midline Neck exam: ABSENT: carotid bruit, lymphadenopathy, thyromegaly, tracheal deviation, tracheostomy Respiratory exam: PRESENT: decreased breath sounds - At bases, rales, symmetrical. ABSENT: accessory muscle use, tachypnea, wheezes Cardiovascular exam: PRESENT: RRR, +S1, +S2 GI/Abdominal exam: PRESENT: normal bowel sounds, soft, other - Bilateral nephrostomy tubes. ABSENT: distended, tenderness Extremities exam: ABSENT: joint swelling, pedal edema - Improved from previous hospitalization Musculoskeletal exam: PRESENT: ambulatory - Very limited, normal inspection Neurological exam: PRESENT: alert, awake, oriented to person, oriented to place, oriented to situation Psychiatric exam: PRESENT: flat affect. ABSENT: agitated, anxious Skin exam: PRESENT: dry, pallor, warm. ABSENT: rash Results Laboratory Results: 03/04/19 10:10 03/04/19 10:10 03/04/19 03/04/19 03/04/19 10:10 10:10 12:35 WBC 13.3 H RBC 3.18 L Hgb 9.5 L Hct 29.3 L MCV 92 MCH 29.8 MCHC 32.3 RDW 19.2 H Plt Count 350 Seg Neutrophils % 86.8 H Sodium 130.5 L Potassium 5.2 H Chloride 91 L Carbon Dioxide 35 H Anion Gap 5 BUN 28 H Creatinine 0.65 Est GFR ( Amer) > 60 Glucose 161 H Calcium 8.8 Total Bilirubin 0.2 AST 23 Alkaline Phosphatase 84 Total Protein 5.6 L Albumin 2.9 L Urine Color YELLOW Urine Appearance SLIGHTLY-CLOUDY Urine pH 6.0 Ur Specific [place] 1.019 Urine Protein 30 H Urine Glucose (UA) NEGATIVE Urine Ketones NEGATIVE Urine Blood SMALL H Urine Nitrite NEGATIVE Ur Leukocyte Esterase SMALL H Urine WBC (Auto) 14 Urine RBC (Auto) 34 03/04/19 03/04/19 03/04/19 10:10 10:10 10:10 Creatine Kinase 21 L CK-MB (CK-2) 1.45 Troponin I < 0.012 NT-Pro-B Natriuret Pep 1580 H Impressions: Chest X-Ray 03/04/19 09:37 IMPRESSION: NO CHANGE IN APPEARANCE OF THE CHEST. CARDIOMEGALY WITH VASCULAR CONGESTION AND PLEURAL EFFUSIONS. Assessment and Plan - Diagnosis (1) Acute and chronic respiratory failure with hypoxia Is this a current diagnosis for this admission?: Yes (2) Pleural effusion Is this a current diagnosis for this admission?: Yes (3) Chronic diastolic heart failure Is this a current diagnosis for this admission?: Yes (4) Stage IV bladder cancer Is this a current diagnosis for this admission?: Yes (5) Hyperkalemia Is this a current diagnosis for this admission?: Yes (6) Hyponatremia Is this a current diagnosis for this admission?: Yes (7) Anemia, chronic disease Is this a current diagnosis for this admission?: Yes - Plan Summary Summary: 03/04/2019 The patient returns with hypoxic respiratory failure. We will continue oxygen supplementation and nebulizer treatments will be available. I have spoken to radiology and we will try to get thoracentesis performed tomorrow. I would like to send the fluid for cytology as well as cell count. He will be on a 1 L oral fluid restriction and I will give gentle normal saline. This will help correct the hyponatremia as well as the hyperkalemia. His urinalysis was slightly positive leukocyte esterase and some white blood cells. He does have bilateral nephrostomy tubes. These can have colonization. There was a possibility of pneumonia during the last hospitalization. He will receive ceftriaxone for the time being and we will monitor closely. Recent echocardiogram revealed 1/4 diastolic failure. We will continue his current medications. We will monitor intake and output. I did have a discussion with the patient's . At this point they have changed CODE STATUS to DNR per their discussion with Dr. Hinson earlier. We will see if the patient improved significantly with thoracentesis. Further treatment options will be made based on results of that procedure. - Time Time Spent with patient: 35 or more minutes Medications reviewed and adjusted accordingly: Yes - Inpatient Certification Based on my medical assessment, after consideration of the patient's comorbidities, presenting symptoms, or acuity I expect that the services needed warrant INPATIENT care.: Yes I certify that my determination is in accordance with my understanding of Medicare's requirements for reasonable and necessary INPATIENT services [42 CFR 412.3e].: Yes Medical Necessity: Need Close Monitoring Due to Risk of Patient Decompensation, Need For IV Fluids, Need For Continuous Telemetry Monitoring Post Hospital Care: D/C Hat Liner Documentation
[2019-03-04] MEDS: NORMAL SALINE 1000 ML 1,000 ML IV PRN (16:39)
[2019-03-04] MEDS: NYSTATIN CREAM 15 GM TOP SCH (17:53)
--- NOTE | 2019-03-04 19:22 | EKG REPORT ---
SEVERITY:- ABNORMAL ECG - SINUS RHYTHM LEFT BUNDLE BRANCH BLOCK : Confirmed by: Gayle Roberto MD 04-Mar-2019 19:22:00
[2019-03-04] MEDS: GUAIFENESIN 600 MG TABLET.SA PO SCH (21:54)
[2019-03-04] MEDS: ATORVASTATIN CALCIUM 20 MG TABLET PO SCH (21:54)
[2019-03-04] MEDS: HYDRALAZINE HCL 50 MG TABLET PO SCH (21:54)
[2019-03-04] MEDS: FLUTICASONE NASAL SPRAY 50 MCG/SPRY 120 SPRAY/16 GM NASL SCH (21:54)
[2019-03-04] MEDS ORDERED: (PENDING PHARMACY ID) (Guaifenesin [Mucinex] 600 MG) PO SCH (22:00)
[2019-03-05] MEDS: NORMAL SALINE 1000 ML 1,000 ML IV PRN ×2 (06:00→22:37)
[2019-03-05 07:08] LABS: ABSOLUTE LYMPHOCYTES (AUTO) 0.8 10^3/uL (0.5-4.7); ABSOLUTE MONOCYTES (AUTO) 1.2 10^3/uL (0.1-1.4); BASOPHILS % (AUTO) 0.1 % (0-2); EOSINOPHILS % (AUTO) 0.1 % (0-6); HEMATOCRIT 27.3 % (37.9-51.0); LYMPHOCYTES % (AUTO) 5.4 % (13-45); MEAN CORPUSCULAR HEMOGLOBIN 30.1 pg (27.0-33.4); MEAN CORPUSCULAR HGB CONC 32.8 g/dL (32.0-36.0); MEAN CORPUSCULAR VOLUME 92 fl (80-97); MONOCYTES % (AUTO) 8.8 % (3-13); PLATELET COUNT 348 10^3/uL (150-450); RED BLOOD COUNT 2.99 10^6/uL (4.35-5.55); RED CELL DISTRIBUTION WIDTH 19.6 % (11.5-14.0); SEGMENTED NEUTROPHILS % (AUTO) 85.6 % (42-78); TOTAL CELLS COUNTED % (AUTO) 100 %
[2019-03-05 07:18] LABS: INTERNATIONAL RATION (INR) 1.06; PROTHROMBIN TIME 13.8 SEC (11.4-15.4)
[2019-03-05 07:19] LABS: PARTIAL THROMBOPLASTIN TIME 31.6 SEC (23.5-35.8)
[2019-03-05 07:34] LABS: ANION GAP 5 (5-19); BLOOD UREA NITROGEN 31 mg/dL (7-20); CALCIUM 8.6 mg/dL (8.4-10.2); CARBON DIOXIDE 36 mmol/L (22-30); CHLORIDE 91 mmol/L (98-107); GLUCOSE 122 mg/dL (75-110); POTASSIUM 4.9 mmol/L (3.6-5.0)
[2019-03-05] MEDS ORDERED: (PENDING PHARMACY ID) (L.Acidoph,Paracasei, B.Lactis [Probiotic] 1 CAP) PO SCH (10:00)
[2019-03-05] MEDS: LACTOBACILLUS ACIDOPHILUS 250 MG TAB PO SCH (10:05)
[2019-03-05] MEDS: DOCUSATE SODIUM 100 MG CAPSULE PO SCH (10:05)
[2019-03-05] MEDS: ESCITALOPRAM OXALATE 10 MG TABLET PO SCH (10:05)
[2019-03-05] MEDS: LOSARTAN POTASSIUM 50 MG TABLET PO SCH (10:05)
[2019-03-05] MEDS: AMLODIPINE BESYLATE 5 MG TABLET PO SCH (10:06)
[2019-03-05] MEDS: HYDRALAZINE HCL 50 MG TABLET PO SCH ×2 (10:07→22:37)
[2019-03-05] MEDS: CEFTRIAXONE 1 GM/D5W RTU 1 GM/50 ML RTUPB IV SCH (10:07)
[2019-03-05] MEDS: GUAIFENESIN 600 MG TABLET.SA PO SCH ×2 (10:07→22:37)
[2019-03-05] MEDS: POLYETHYLENE GLYCOL 3350 POWDER 17 GM/1 PACKET PO SCH (10:07)
[2019-03-05] MEDS: NYSTATIN CREAM 15 GM TOP SCH ×2 (10:11→17:52)
--- NOTE | 2019-03-05 10:30 | PDOC PROGRESS REPORT ---
Subjective Progress Note for:: 03/05/19 Subjective:: The patient is more comfortable this morning. He has faint sporadic wheeze. He is somewhat more awake than yesterday. He is preparing to go down to radiology for his thoracentesis. Reason For Visit: PLEURAL EFFUSION, MATASTATIC BLADDER CANCER Physical Exam Vital Signs: Temp Pulse Resp BP Pulse Ox 97.5 F 81 20 143/50 H 94 03/05/19 08:22 03/05/19 08:22 03/05/19 08:22 03/05/19 08:22 03/05/19 08:22 Intake & Output 03/04/19 03/05/19 03/06/19 06:59 06:59 06:59 Intake Total 1463 Output Total 875 Balance 588 Weight 100.2 kg General appearance: PRESENT: no acute distress, cooperative, well-developed Head exam: PRESENT: atraumatic, normocephalic Ear exam: PRESENT: normal external ear exam. ABSENT: bleeding, drainage Mouth exam: PRESENT: dry mucosa, tongue midline Neck exam: ABSENT: lymphadenopathy, tenderness, thyromegaly Respiratory exam: PRESENT: decreased breath sounds - At bases, rales - Faint rales lower lung field, symmetrical, wheezes - Sporadic intermittent bilateral upper lung dumont. ABSENT: chest wall tenderness, prolonged expiratory phas, rhonchi, tachypnea Cardiovascular exam: PRESENT: RRR, +S1, +S2, systolic murmur - 2/6 GI/Abdominal exam: PRESENT: diminished bowel sounds, soft. ABSENT: distended, tenderness Rectal exam: PRESENT: deferred Gentrourinary exam: PRESENT: other - Nephrostomy tubes Extremities exam: ABSENT: joint swelling, pedal edema, tenderness Musculoskeletal exam: PRESENT: normal inspection. ABSENT: ambulatory - Very weak., deformity Neurological exam: PRESENT: alert, awake, oriented to person, oriented to place, oriented to time, oriented to situation Psychiatric exam: PRESENT: flat affect. ABSENT: agitated, anxious Focused psych exam: ABSENT: delusional, restlessness Skin exam: PRESENT: dry, pallor, warm Results Laboratory Results: 03/05/19 06:05 03/05/19 06:05 03/04/19 03/04/19 03/04/19 10:10 10:10 12:35 WBC 13.3 H RBC 3.18 L Hgb 9.5 L Hct 29.3 L MCV 92 MCH 29.8 MCHC 32.3 RDW 19.2 H Plt Count 350 Seg Neutrophils % 86.8 H Sodium 130.5 L Potassium 5.2 H Chloride 91 L Carbon Dioxide 35 H Anion Gap 5 BUN 28 H Creatinine 0.65 Est GFR ( Amer) > 60 Glucose 161 H Calcium 8.8 Magnesium Total Bilirubin 0.2 AST 23 Alkaline Phosphatase 84 Total Protein 5.6 L Albumin 2.9 L Urine Color YELLOW Urine Appearance SLIGHTLY-CLOUDY Urine pH 6.0 Ur Specific Locke 1.019 Urine Protein 30 H Urine Glucose (UA) NEGATIVE Urine Ketones NEGATIVE Urine Blood SMALL H Urine Nitrite NEGATIVE Ur Leukocyte Esterase SMALL H Urine WBC (Auto) 14 Urine RBC (Auto) 34 03/05/19 03/05/19 06:05 06:05 WBC 14.0 H RBC 2.99 L Hgb 9.0 L Hct 27.3 L MCV 92 MCH 30.1 MCHC 32.8 RDW 19.6 H Plt Count 348 Seg Neutrophils % 85.6 H Sodium 132.2 L Potassium 4.9 Chloride 91 L Carbon Dioxide 36 H Anion Gap 5 BUN 31 H Creatinine 0.75 Est GFR ( Amer) > 60 Glucose 122 H Calcium 8.6 Magnesium 2.0 Total Bilirubin AST Alkaline Phosphatase Total Protein Albumin Urine Color Urine Appearance Urine pH Ur Specific Locke Urine Protein Urine Glucose (UA) Urine Ketones Urine Blood Urine Nitrite Ur Leukocyte Esterase Urine WBC (Auto) Urine RBC (Auto) 03/04/19 03/04/19 03/04/19 10:10 10:10 10:10 Creatine Kinase 21 L CK-MB (CK-2) 1.45 Troponin I < 0.012 NT-Pro-B Natriuret Pep 1580 H Impressions: Chest X-Ray 03/04/19 09:37 IMPRESSION: NO CHANGE IN APPEARANCE OF THE CHEST. CARDIOMEGALY WITH VASCULAR CONGESTION AND PLEURAL EFFUSIONS. Assessment and Plan - Diagnosis (1) Acute and chronic respiratory failure with hypoxia Is this a current diagnosis for this admission?: Yes (2) Pleural effusion Is this a current diagnosis for this admission?: Yes (3) Chronic diastolic heart failure Is this a current diagnosis for this admission?: Yes (4) Stage IV bladder cancer Is this a current diagnosis for this admission?: Yes (5) Hyperkalemia Is this a current diagnosis for this admission?: Yes (6) Hyponatremia Is this a current diagnosis for this admission?: Yes (7) Anemia, chronic disease Is this a current diagnosis for this admission?: Yes - Plan Summary Summary: 03/04/2019 The patient returns with hypoxic respiratory failure. We will continue oxygen supplementation and nebulizer treatments will be available. I have spoken to radiology and we will try to get thoracentesis performed tomorrow. I would like to send the fluid for cytology as well as cell count. He will be on a 1 L oral fluid restriction and I will give gentle normal saline. This will help correct the hyponatremia as well as the hyperkalemia. His urinalysis was slightly positive leukocyte esterase and some white blood cells. He does have bilateral nephrostomy tubes. These can have colonization. There was a possibility of pneumonia during the last hospitalization. He will receive ceftriaxone for the time being and we will monitor closely. Recent echocardiogram revealed 1/4 diastolic failure. We will continue his current medications. We will monitor intake and output. I did have a discussion with the patient's . At this point they have change d CODE STATUS to DNR per their discussion with Dr. Hinson earlier. We will see if the patient improved significantly with thoracentesis. Further treatment options will be made based on results of that procedure. 03/05/2019- Pleural effusion-the patient is going down for his thoracentesis now. This should alleviate most of his orthopnea and dyspnea. Chemistries, cell count and cytology have been ordered on the fluid. We will continue antibiotics until there is no evidence of infection. Chronic diastolic heart failure-continue current regimen. We will adjust based on clinical indicators such as shortness of breath and volume overload. Hyponatremia-slowly improving with gentle IV fluids and oral fluid restriction Hyperkalemia-potassium is normal with the gentle IV fluids. Diuretics currently on hold pending results of thoracentesis, labs and intake and output. - Time Time Spent with patient: 15-24 minutes Medications reviewed and adjusted accordingly: Yes Anticipated discharge: Home with Homehealth
--- NOTE | 2019-03-05 12:10 | RADIOLOGY REPORT (SQ) ---
EXAM DESCRIPTION: CHEST SINGLE VIEW COMPLETED DATE/TIME: 03/05/2019 11:39 am REASON FOR STUDY: PLEURAL EFFUSION COMPARISON: 03/04/2019. EXAM PARAMETERS: NUMBER OF VIEWS: One view. TECHNIQUE: Single frontal radiographic view of the chest acquired. RADIATION DOSE: NA LIMITATIONS: None. FINDINGS: LUNGS AND PLEURA: Basilar densities and pleural effusions. No pneumothorax. MEDIASTINUM AND HILAR STRUCTURES: No masses. Contour normal. HEART AND VASCULAR STRUCTURES: Cardiomegaly. BONES: Right rib fractures. HARDWARE: Vascular port. OTHER: No other significant finding. IMPRESSION: NO PNEUMOTHORAX FOLLOWING THORACENTESIS. NO ACUTE FINDINGS. TECHNICAL DOCUMENTATION: JOB ID: [id number] [employer]- All Rights Reserved Reading location - IP/workstation name: [email or web address]
--- NOTE | 2019-03-05 12:56 | RADIOLOGY REPORT (SQ) ---
EXAM DESCRIPTION: U/S THORACENTESIS WITH IMAGING COMPLETED DATE/TIME: 03/05/2019 11:41 am REASON FOR STUDY: Pleural effusion. Discussed with Renard COMPARISON: AP view of the chest from 03/04/2019. RADIATION DOSE: None. LIMITATIONS: None. PROCEDURE: Procedure, risks, benefit, and alternative explained to patient who then gave written con sent. The posterior right chest wall was marked using ultrasound guidance. A time-out was called fo r correct marking verification. Chest prepped and draped using sterile technique. Local anesthesia a chieved using 10 ml of 1% lidocaine injection. A 6 Fr Safe-T- Centesis set was introduced into the r ight pleural space. Fluid was aspirated. The catheter was removed and the entry site was covered wi th sterile bandage. No immediate complications noted. Images acquired during the procedure were stored on PACS. FINDINGS: ENTRY SITE: posterior right chest. FLUID VOLUME: 1000 mL. FLUID ANALYSIS: serosanguineous. OTHER: Fluid sent to the lab for testing. IMPRESSION: SUCCESSFUL THORACENTESIS USING ULTRASOUND GUIDANCE. COMMENT: Patient medication list reviewed: Yes- Quality ID# [id number]:Eligible professional attests to doc umenting in the medical record they obtained, updated, or reviewed the patient's current medications. TECHNICAL DOCUMENTATION: JOB ID: [id number] [employer]- All Rights Reserved Reading location - IP/workstation name: [email or web address]
--- NOTE | 2019-03-05 13:46 | RADIOLOGY REPORT (SQ) ---
EXAM DESCRIPTION: CHEST SINGLE VIEW COMPLETED DATE/TIME: 03/05/2019 1:36 pm REASON FOR STUDY: PLEURAL EFFUSION COMPARISON: 03/05/2019 at 1125 hours. EXAM PARAMETERS: NUMBER OF VIEWS: One view. TECHNIQUE: Single frontal radiographic view of the chest acquired. RADIATION DOSE: NA LIMITATIONS: None. FINDINGS: LUNGS AND PLEURA: No pneumothorax. Basilar densities and pleural effusions. MEDIASTINUM AND HILAR STRUCTURES: No masses. Contour normal. HEART AND VASCULAR STRUCTURES: Cardiomegaly. BONES: No acute findings. Chronic changes in the spine. Old rib fractures. HARDWARE: Vascular port. OTHER: No other significant finding. IMPRESSION: NO PNEUMOTHORAX ON THE 2 HOUR STUDY AFTER THORACENTESIS. NO CHANGE IN APPEARANCE OF RENAE ST. TECHNICAL DOCUMENTATION: JOB ID: [id number] [employer]- All Rights Reserved Reading location - IP/workstation name: [email or web address]
[2019-03-05 13:50] LABS: FLUID TYPE PLEURAL
[2019-03-05 13:53] LABS: FLUID COLOR RED; FLUID SOURCE LUNG
[2019-03-05 13:54] LABS: FLUID APPEARANCE CLOUDY; FLUID VISCOSITY LIQUID
[2019-03-05] MEDS: ASPIRIN 81 MG TABLET, ENT COATED PO SCH (17:50)
[2019-03-05] MEDS: FLUTICASONE NASAL SPRAY 50 MCG/SPRY 120 SPRAY/16 GM NASL SCH ×2 (17:50→22:39)
[2019-03-05] MEDS: HEPARIN SOD (PORCINE) 5,000 UNIT/ML 1 ML VIAL SUBCUT SCH (22:37)
[2019-03-05] MEDS: ATORVASTATIN CALCIUM 20 MG TABLET PO SCH (22:37)
[2019-03-06] MEDS: HEPARIN SOD (PORCINE) 5,000 UNIT/ML 1 ML VIAL SUBCUT SCH ×3 (05:39→22:55)
[2019-03-06] MEDS: HYDRALAZINE HCL 50 MG TABLET PO SCH ×2 (09:40→22:55)
[2019-03-06] MEDS: LACTOBACILLUS ACIDOPHILUS 250 MG TAB PO SCH (09:41)
[2019-03-06] MEDS: DOCUSATE SODIUM 100 MG CAPSULE PO SCH (09:41)
[2019-03-06] MEDS: ESCITALOPRAM OXALATE 10 MG TABLET PO SCH (09:42)
[2019-03-06] MEDS: POLYETHYLENE GLYCOL 3350 POWDER 17 GM/1 PACKET PO SCH (09:42)
[2019-03-06] MEDS: ASPIRIN 81 MG TABLET, ENT COATED PO SCH (09:43)
[2019-03-06] MEDS: LOSARTAN POTASSIUM 50 MG TABLET PO SCH (09:43)
[2019-03-06] MEDS: AMLODIPINE BESYLATE 5 MG TABLET PO SCH (09:43)
[2019-03-06] MEDS: GUAIFENESIN 600 MG TABLET.SA PO SCH ×2 (09:44→23:00)
[2019-03-06] MEDS: FLUTICASONE NASAL SPRAY 50 MCG/SPRY 120 SPRAY/16 GM NASL SCH ×2 (09:44→22:55)
[2019-03-06] MEDS: CEFTRIAXONE 1 GM/D5W RTU 1 GM/50 ML RTUPB IV SCH (09:45)
[2019-03-06] MEDS: NYSTATIN CREAM 15 GM TOP SCH ×2 (09:45→17:02)
--- NOTE | 2019-03-06 13:50 | PDOC PROGRESS REPORT ---
Subjective Progress Note for:: 03/06/19 Subjective:: Still weak. Still with decreased breath sounds at the bases. Pleural fluid pending. Stop IV. IV Lasix. Reason For Visit: PLEURAL EFFUSION, MATASTATIC BLADDER CANCER Physical Exam Vital Signs: Temp Pulse Resp BP Pulse Ox 97.3 F 77 20 132/46 H 95 03/06/19 11:46 03/06/19 11:46 03/06/19 11:46 03/06/19 11:46 03/06/19 11:46 Intake & Output 03/05/19 03/06/19 03/07/19 06:59 06:59 06:59 Intake Total 1463 1338 50 Output Total 875 625 Balance 588 713 50 Weight 100.2 kg 100.4 kg Results Laboratory Results: 03/05/19 06:05 03/05/19 06:05 03/05/19 11:04 Fluid Type PLEURAL Fluid Source LUNG Fluid Color RED Fluid Appearance CLOUDY Fluid Viscosity LIQUID Fluid WBC 510 Fluid RBC 13169 03/04/19 03/04/19 03/04/19 10:10 10:10 10:10 Creatine Kinase 21 L CK-MB (CK-2) 1.45 Troponin I < 0.012 NT-Pro-B Natriuret Pep 1580 H Impressions: Thoracentesis Ultrasound 03/05/19 08:00 IMPRESSION: SUCCESSFUL THORACENTESIS USING ULTRASOUND GUIDANCE. Chest X-Ray 03/05/19 13:10 IMPRESSION: NO PNEUMOTHORAX ON THE 2 HOUR STUDY AFTER THORACENTESIS. NO CHANGE IN APPEARANCE OF CHEST. Assessment and Plan - Diagnosis (1) Acute and chronic respiratory failure with hypoxia Is this a current diagnosis for this admission?: Yes (2) Pleural effusion Is this a current diagnosis for this admission?: Yes (3) Chronic diastolic heart failure Is this a current diagnosis for this admission?: Yes (4) Stage IV bladder cancer Is this a current diagnosis for this admission?: Yes (5) Hyperkalemia Is this a current diagnosis for this admission?: Yes (6) Hyponatremia Is this a current diagnosis for this admission?: Yes (7) Anemia, chronic disease Is this a current diagnosis for this admission?: Yes - Plan Summary Summary: 03/04/2019 The patient returns with hypoxic respiratory failure. We will continue oxygen supplementation and nebulizer treatments will be available. I have spoken to radiology and we will try to get thoracentesis performed tomorrow. I would like to send the fluid for cytology as well as cell count. He will be on a 1 L oral fluid restriction and I will give gentle normal saline. This will help correct the hyponatremia as well as the hyperkalemia. His urinalysis was slightly positive leukocyte esterase and some white blood cells. He does have bilateral nephrostomy tubes. These can have colonization. There was a possibility of pneumonia during the last hospitalization. He will receive ceftriaxone for the time being and we will monitor closely. Recent echocardiogram revealed 1/4 diastolic failure. We will continue his current medications. We will monitor intake and output. I did have a discussion with the patient's . At this point they have changed CODE STATUS to DNR per their discussion with Dr. Hinson earlier. We will see if the patient improved significantly with thoracentesis. Further treatment options will be made based on results of that procedure. 03/05/2019- Pleural effusion-the patient is going down for his thoracentesis now. This should alleviate most of his orthopnea and dyspnea. Chemistries, cell count and cytology have been ordered on the fluid. We will continue antibiotics until there is no evidence of infection. Chronic diastolic heart failure-continue current regimen. We will adjust based on clinical indicators such as shortness of breath and volume overload. Hyponatremia-slowly improving with gentle IV fluids and oral fluid restriction Hyperkalemia-potassium is normal with the gentle IV fluids. Diuretics currently on hold pending results of thoracentesis, labs and intake and output.
[2019-03-06] MEDS ORDERED: FUROSEMIDE INJ/PF 20 MG/2 ML SDV IV ONE (14:30)
[2019-03-06] MEDS ORDERED: FUROSEMIDE INJ/PF 20 MG/2 ML SDV ONE (16:58)
[2019-03-06] MEDS: FUROSEMIDE 20 MG TABLET PO SCH (17:01)
[2019-03-06] MEDS: ATORVASTATIN CALCIUM 20 MG TABLET PO SCH (22:55)
[2019-03-07] MEDS: HEPARIN SOD (PORCINE) 5,000 UNIT/ML 1 ML VIAL SUBCUT SCH ×2 (05:58→13:27)
[2019-03-07] MEDS ORDERED: FUROSEMIDE INJ/PF 40 MG/4 ML SDV IV ONE (08:30)
--- NOTE | 2019-03-07 08:33 | PDOC PROGRESS REPORT ---
Subjective Progress Note for:: 03/07/19 Subjective:: Had a long discussion with and patient today, discussed with them that we should consider going towards a comfort care and hospice type approach. agrees with this, I will have Nicolette from [facility] meet with them and they probably will meet with them in the next few hours. Continue with diuresis today, plan for another 24 to 48 hours of diuresis then possible discharge home with home hospice. Reason For Visit: PLEURAL EFFUSION, MATASTATIC BLADDER CANCER Physical Exam Vital Signs: Temp Pulse Resp BP Pulse Ox 98.2 F 73 16 144/45 H 96 03/07/19 07:50 03/07/19 07:50 03/07/19 07:50 03/07/19 07:50 03/07/19 07:50 Intake & Output 03/06/19 03/07/19 03/08/19 06:59 06:59 06:59 Intake Total 1338 2208 Output Total 625 1110 Balance 713 1098 Weight 100.4 kg 101.7 kg General appearance: PRESENT: no acute distress, well-developed, well-nourished Head exam: PRESENT: atraumatic, normocephalic Eye exam: PRESENT: conjunctiva pink, EOMI, PERRLA. ABSENT: scleral icterus Ear exam: PRESENT: normal external ear exam Mouth exam: PRESENT: moist, tongue midline Neck exam: ABSENT: carotid bruit, JVD, lymphadenopathy, thyromegaly Respiratory exam: PRESENT: clear to auscultation kamlesh. ABSENT: rales, rhonchi, wheezes Cardiovascular exam: PRESENT: RRR. ABSENT: diastolic murmur, rubs, systolic murmur Pulses: PRESENT: normal dorsalis pedis pul Vascular exam: PRESENT: normal capillary refill GI/Abdominal exam: PRESENT: normal bowel sounds, soft. ABSENT: distended, guarding, mass, organolmegaly, rebound, tenderness Rectal exam: PRESENT: deferred Extremities exam: PRESENT: full ROM. ABSENT: calf tenderness, clubbing, pedal edema Neurological exam: PRESENT: alert, awake, oriented to person, oriented to place, oriented to time, oriented to situation, CN II-XII grossly intact. ABSENT: motor sensory deficit Psychiatric exam: PRESENT: appropriate affect, normal mood. ABSENT: homicidal ideation, suicidal ideation Skin exam: PRESENT: dry, intact, warm. ABSENT: cyanosis, rash Results Laboratory Results: 03/05/19 06:05 03/05/19 06:05 03/04/19 03/04/19 03/04/19 10:10 10:10 10:10 Creatine Kinase 21 L CK-MB (CK-2) 1.45 Troponin I < 0.012 NT-Pro-B Natriuret Pep 1580 H Impressions: Thoracentesis Ultrasound 03/05/19 08:00 IMPRESSION: SUCCESSFUL THORACENTESIS USING ULTRASOUND GUIDANCE. Chest X-Ray 03/05/19 13:10 IMPRESSION: NO PNEUMOTHORAX ON THE 2 HOUR STUDY AFTER THORACENTESIS. NO CHANGE IN APPEARANCE OF CHEST. Assessment & Plan - Diagnosis (1) Acute and chronic respiratory failure with hypoxia Is this a current diagnosis for this admission?: Yes Plan: Secondary to fluid overload, continue with Lasix today (2) CHF (congestive heart failure) Qualifiers: Heart failure type: diastolic Heart failure chronicity: acute on chronic Qualified Code(s): I50.33 - Acute on chronic diastolic (congestive) heart failure Is this a current diagnosis for this admission?: Yes Plan: Secondary to diastolic dysfunction, resulting in fluid overload, continue with Lasix today IV (3) Bladder cancer Qualifiers: Bladder location: posterior wall Is this a current diagnosis for this admission?: Yes Plan: No further treatment planned, patient is hospice appropriate - Time Time Spent with patient: 35 or more minutes
[2019-03-07] MEDS: FLUTICASONE NASAL SPRAY 50 MCG/SPRY 120 SPRAY/16 GM NASL SCH (10:10)
[2019-03-07] MEDS: POLYETHYLENE GLYCOL 3350 POWDER 17 GM/1 PACKET PO SCH (10:10)
[2019-03-07] MEDS: ASPIRIN 81 MG TABLET, ENT COATED PO SCH (10:12)
[2019-03-07] MEDS: FUROSEMIDE 20 MG TABLET PO SCH (10:12)
[2019-03-07] MEDS: AMLODIPINE BESYLATE 5 MG TABLET PO SCH (10:13)
[2019-03-07] MEDS: DOCUSATE SODIUM 100 MG CAPSULE PO SCH (10:13)
[2019-03-07] MEDS: LOSARTAN POTASSIUM 50 MG TABLET PO SCH (10:13)
[2019-03-07] MEDS: GUAIFENESIN 600 MG TABLET.SA PO SCH (10:14)
[2019-03-07] MEDS: ESCITALOPRAM OXALATE 10 MG TABLET PO SCH (10:14)
[2019-03-07] MEDS: HYDRALAZINE HCL 50 MG TABLET PO SCH (10:14)
[2019-03-07] MEDS: LACTOBACILLUS ACIDOPHILUS 250 MG TAB PO SCH (10:15)
[2019-03-07] MEDS: CEFTRIAXONE 1 GM/D5W RTU 1 GM/50 ML RTUPB IV SCH (10:16)
[2019-03-07] MEDS: NYSTATIN CREAM 15 GM TOP SCH (10:17)
[2019-03-07 11:07] VITALS: BP 131/99
[2019-03-07] MEDS ORDERED: DILTIAZEM HCL INJ 25 MG/5 ML VIAL ONE (11:42)
[2019-03-07] MEDS ORDERED: DILTIAZEM HCL INJ 25 MG/5 ML VIAL IV ONE (12:00)
[2019-03-07 12:05] LABS: ARTERIAL BLOOD H2CO3 1.86 mmol/L (1.05-1.35); ARTERIAL BLOOD HCO3 36.6 mmol/L (20-24); ARTERIAL BLOOD O2 SATURATION 92.3 % (94-98); ARTERIAL BLOOD PCO2 61.8 mmHg (35-45); ARTERIAL BLOOD PH 7.39 (7.35-7.45); ARTERIAL BLOOD PO2 66.1 mmHg (80-100); ARTERIAL BLOOD TOTAL CO2 38.5 mmol/L (23-27)
[2019-03-07 12:06] LABS: ARTERIAL BLOOD FIO2 7L
[2019-03-07 12:06] LABS: HEMATOCRIT 28.3 % (37.9-51.0); HEMOGLOBIN 9.2 g/dL (13.5-17.0); MEAN CORPUSCULAR HGB CONC 32.6 g/dL (32.0-36.0); MEAN CORPUSCULAR VOLUME 92 fl (80-97); PLATELET COUNT 337 10^3/uL (150-450); RED BLOOD COUNT 3.07 10^6/uL (4.35-5.55); RED CELL DISTRIBUTION WIDTH 19.4 % (11.5-14.0); WHITE BLOOD COUNT 15.2 10^3/uL (4.0-10.5)
[2019-03-07 12:29] LABS: ANION GAP 7 (5-19); BLOOD UREA NITROGEN 30 mg/dL (7-20); CALCIUM 8.5 mg/dL (8.4-10.2); CARBON DIOXIDE 36 mmol/L (22-30); CHLORIDE 91 mmol/L (98-107); GLUCOSE 145 mg/dL (75-110); POTASSIUM 4.3 mmol/L (3.6-5.0)
[2019-03-07] MEDS ORDERED: DIGOXIN INJ 0.5 MG/2 ML AMPULE ONE (12:33)
--- NOTE | 2019-03-07 14:28 | PDOC TRANSFER SUMMARY ---
General - Admit/Disc Date/PCP Admission Date/Primary Care Provider: 03/04/19 12:25 PATRIC HERNANDES NP Discharge Date: 03/07/19 - Discharge Diagnosis (1) Anemia, chronic disease Is this a current diagnosis for this admission?: Yes (2) Chronic diastolic heart failure Is this a current diagnosis for this admission?: Yes (3) Hyperkalemia Is this a current diagnosis for this admission?: Yes (4) Pleural effusion Is this a current diagnosis for this admission?: Yes (5) Stage IV bladder cancer Is this a current diagnosis for this admission?: Yes (6) Acute and chronic respiratory failure with hypoxia Is this a current diagnosis for this admission?: Yes (7) Hyponatremia Is this a current diagnosis for this admission?: Yes - Additional Information Resuscitation Status: Comfort Measures Only Discharge Diet: As Tolerated Discharge Activity: Activity As Tolerated Prescriptions: Lorazepam [Ativan 0.5 mg Tablet] 0.5 mg PO Q4HP PRN #30 tab PRN Reason: Anxiety/Agitation Diltiazem HCl [Cardizem 30 mg Tablet] 1 tab PO Q8 #90 tab Furosemide [Lasix 40 mg Tablet] 40 mg PO BID #20 Morphine Sulfate [Morphine Oral Soln 10 Mg/5 Ml Udcup] 5 mg PO Q4HP PRN #20 udc PRN Reason: pain, shortness of breath Scopolamine 1 each TD Q72H #3 patch.td.3 Ondansetron [Zofran Odt 4 mg Tablet] 4 mg PO Q6HP PRN #20 tab.rapdis PRN Reason: Home Medications: Albuterol Sulfate [Proair HFA Inhalation Aerosol 8.5 gm MDI] 1 puff IH QIDP PRN 03/04/19 Amlodipine Besylate [Norvasc 5 mg Tablet] 5 mg PO DAILY 03/04/19 Fluticasone Propionate [Flonase Nasal [place] 50 Mcg/[place] 16 gm] 1 spray NASL Q12 03/04/19 Fluticasone/Salmeterol [Advair HFA 115-21 mcg Inhaler] 2 puff IH BID 03/04/19 Nystatin [Mycostatin Cream 15 gm] 1 applic TOP BID 03/04/19 Polyethylene Glycol 3350 [Miralax Powder 17 gm/Packet] 17 gm PO DAILY 03/04/19 Acetaminophen [Tylenol 325 mg Tablet] 650 mg PO Q4HP PRN tablet 03/07/19 Diltiazem HCl [Cardizem 30 mg Tablet] 1 tab PO Q8 #90 tab 03/07/19 Furosemide [Lasix 40 mg Tablet] 40 mg PO BID #20 03/07/19 Lorazepam [Ativan 0.5 mg Tablet] 0.5 mg PO Q4HP PRN #30 tab 03/07/19 Mag Hydrox/Al Hydrox/Simeth [Maalox Plus Susp 30 Udcup] 15 ml PO Q6HP PRN udc 03/07/19 Morphine Sulfate [Morphine Oral Soln 10 Mg/5 Ml Udcup] 5 mg PO Q4HP PRN #20 udc 03/07/19 Ondansetron [Zofran Odt 4 mg Tablet] 4 mg PO Q6HP PRN #20 tab.rapdis 03/07/19 Scopolamine 1 each TD Q72H #3 patch.td.3 03/07/19 History of Present Illness Admission Date/PCP: 03/04/19 12:25 PATRIC HERNANDES NP History of Present Illness: Per H&P by Dr. Chacko: MARII TAN is a 83 year old male who was discharged from the hospital yesterday. He has been struggling with metastatic bladder cancer and was treated for congestive heart failure, anasarca and urinary infection. He has bilateral nephrostomy tubes. When he got home yesterday his reports that he was comfortable. This morning when the home health nurse visited she was alarmed that he was hypoxic and called EMS. The patient's oxygen saturation on room air was quite low and even on 2 L was under 90%. At 4 L it improved but he is still quite orthopneic. He has a pleural effusion on the right that possibly is larger. He remains on nasal cannula. He was referred to the hospital service for admission. Hospital Course Hospital Course: The patient was admitted to [facility] on continuous cardiac telemetry. He was provided supplemental oxygen and nebulizer treatments as needed for shortness of breath. The patient did undergo a right-sided thoracentesis on 03/05/2019 with approximately 1 L of serous sanguinous fluid removed. Culture and sensitivity results are still pending. He was placed on a 1 L fluid oral restriction and provided gentle normal saline via IV for correction of hyponatremia and hyperkalemia. Lab work this morning reveals improved sodium from 130.5-133.9 and normalized potassium. The patient did have improvement of his orthopnea and dyspnea following thoracentesis; though did continue to require supplemental oxygen via nasal cannula. This morning the patient and met with Dr. Hinson and determined that they wanted to be discharged home as soon as possible with home hospice services. Mid morning, the patient was noted to convert into atrial fibrillation with RVR; heart rate 120s to 140s. He was provided a diltiazem IV push which did obtain rate control for a short period of time, however, he remained in atrial fibrillation. His heart rate, again, gradually climbed to the 140s. Therefore he was provided IV digoxin; again obtaining rate control. Long discussion had with the patient's (with relay worker, Nicolette, at bedside). We discussed the option of continuing inpatient management of atrial fibrillation/RVR versus recognizing this as a symptom related to his acute on chronic respiratory failure and overall worsening prognosis. The patient's indicated that she wished for him to return home as soon as possible as he had been frequently asking to go home today. I did carefully inform his , as well as his son, Marii Tan Jr. by phone, that continued RVR can lead to worsening heart failure, worsening respiratory status, and sudden cardiac events due to prolonged increased cardiac demand. They both acknowledge this and confirmed desire to proceed with discharge to home with home hospice services. Nicolette, [facility] nurse liaison, confirms that they will be directly admitting the patient into their care today and that Dr. Hinson can continue to provide medical oversight. The patient is discharged to home with poor prognosis; fortunately they live only 10 minutes away and so I do feel comfortable with the transport distance/time. However, I do not expect that the patient's to have more than a few days remaining. Prescriptions were provided for diltiazem 30 mg p.o. every 8 hours for rate control, furosemide 40 mg p.o. twice daily, and oral morphine, oral Ativan, zofran odt, and scopolamine patches for symptom control. Physical Exam Vital Signs: Temp Pulse Resp BP Pulse Ox 97.5 F 66 17 131/99 H 97 03/07/19 10:59 03/07/19 10:59 03/07/19 10:59 03/07/19 10:59 03/07/19 10:59 Intake & Output 03/06/19 03/07/19 03/08/19 06:59 06:59 06:59 Intake Total 1338 2208 290 Output Total 625 1110 Balance 713 1098 290 Weight 100.4 kg 101.7 kg General appearance: PRESENT: no acute distress, cooperative, well-developed, well-nourished - Overweight Head exam: PRESENT: atraumatic, normocephalic Eye exam: PRESENT: conjunctiva pink, EOMI, PERRLA. ABSENT: scleral icterus Ear exam: PRESENT: normal external ear exam Mouth exam: PRESENT: moist, tongue midline Neck exam: ABSENT: carotid bruit, JVD, lymphadenopathy, thyromegaly Respiratory exam: PRESENT: decreased breath sounds - Bibasilar, prolonged expiratory phas, symmetrical, tachypnea. ABSENT: rales, rhonchi, wheezes Cardiovascular exam: PRESENT: irregular rhythm, +S1, +S2, tachycardia. ABSENT: diastolic murmur, rubs, systolic murmur Pulses: PRESENT: +1 pedal pulses bilateral Vascular exam: PRESENT: pallor GI/Abdominal exam: PRESENT: normal bowel sounds, soft. ABSENT: distended, guarding, mass, organolmegaly, rebound, tenderness Rectal exam: PRESENT: deferred Gentrourinary exam: PRESENT: other - Bilateral nephrostomy tubes Extremities exam: PRESENT: full ROM. ABSENT: calf tenderness, clubbing, pedal edema Neurological exam: PRESENT: alert, awake, oriented to person, oriented to place, oriented to situation, CN II-XII grossly intact, other - Intermittent confusion. ABSENT: oriented to time, motor sensory deficit Psychiatric exam: PRESENT: appropriate affect, normal mood. ABSENT: homicidal ideation, suicidal ideation Skin exam: PRESENT: dry, intact, pallor, warm. ABSENT: cyanosis, rash Results Laboratory Results: 03/07/19 11:45 03/07/19 11:45 03/05/19 03/05/19 03/07/19 11:04 11:04 11:45 WBC 15.2 H RBC 3.07 L Hgb 9.2 L Hct 28.3 L MCV 92 MCH 30.0 MCHC 32.6 RDW 19.4 H Plt Count 337 Carbonic Acid HCO3/H2CO3 Ratio ABG pH ABG pCO2 ABG pO2 ABG HCO3 ABG O2 Saturation ABG Base Excess FiO2 Sodium Potassium Chloride Carbon Dioxide Anion Gap BUN Creatinine Est GFR ( Amer) Glucose Calcium Magnesium Fluid Glucose 120 Fluid Total Protein 3.0 03/07/19 03/07/19 11:45 11:50 WBC RBC Hgb Hct MCV MCH MCHC RDW Plt Count Carbonic Acid 1.86 H HCO3/H2CO3 Ratio 19:1 ABG pH 7.39 ABG pCO2 61.8 H ABG pO2 66.1 L ABG HCO3 36.6 H ABG O2 Saturation 92.3 L ABG Base Excess 10.0 FiO2 7L Sodium 133.9 L Potassium 4.3 Chloride 91 L Carbon Dioxide 36 H Anion Gap 7 BUN 30 H Creatinine 0.69 Est GFR ( Amer) > 60 Glucose 145 H Calcium 8.5 Magnesium 1.9 Fluid Glucose Fluid Total Protein 03/04/19 03/04/19 03/04/19 10:10 10:10 10:10 Creatine Kinase 21 L CK-MB (CK-2) 1.45 Troponin I < 0.012 NT-Pro-B Natriuret Pep 1580 H Impressions: Thoracentesis Ultrasound 03/05/19 08:00 IMPRESSION: SUCCESSFUL THORACENTESIS USING ULTRASOUND GUIDANCE. Chest X-Ray 03/05/19 13:10 IMPRESSION: NO PNEUMOTHORAX ON THE 2 HOUR STUDY AFTER THORACENTESIS. NO CHANGE IN APPEARANCE OF CHEST. Transfer Plan - Time Spent with Patient Time spent with patient: Greater than 30 Minutes Qualifiers PATIENT BEING DISCHARGED WITH ANY OF THE FOLLOWING DIAGNOSIS: No Plan Discharge Plan: Discharge to home with community hospice services. Time Spent: Greater than 30 Minutes
--- NOTE | 2019-03-08 13:06 | EKG REPORT ---
SEVERITY:- ABNORMAL ECG - A-FIB/FLUTTER W/ PREDOM 2:1 AV BLOCK, A-RATE 242 , CVR 105/MIN. LEFT BUNDLE BRANCH BLOCK : Confirmed by: Flakito Pereira MD 08-Mar-2019 13:05:33
== END 2019-03-07 14:34 | disposition hospice, home (50) | DRG 189 ==
LOC: ER 09:35 → EH 12:25 → 3S 13:50
PROVIDERS: ADMIT Hospitalist; ATTEND Hospitalist
PROC: 0W993ZX Drainage of Right Pleural Cavity, Percutaneous Approach, Diagnostic (ICD-10-PCS; principal; 2019-03-05)
DX: J96.21 Acute and chronic respiratory failure with hypoxia (principal); I50.33 Acute on chronic diastolic (congestive) heart failure; J90 Pleural effusion, not elsewhere classified; E87.1 Hypo-osmolality and hyponatremia; E87.5 Hyperkalemia; C67.4 Malignant neoplasm of posterior wall of bladder; D64.9 Anemia, unspecified; I25.10 Atherosclerotic heart disease of native coronary artery without angina pectoris; Z66 Do not resuscitate; Z79.82 Long term (current) use of aspirin; Z79.51 Long term (current) use of inhaled steroids; Z79.899 Other long term (current) drug therapy; Z93.6 Other artificial openings of urinary tract status
CPT/HCPCS: 32555; 36415; 71045; 80048; 80053; 81001; 82550; 82553; 82803; 82945; 83735; 83880; 84157; 84484; 85025; 85027; 85610; 85730; 87040; 87070; 87075; 87205; 88305; 88341; 88342; 89050; 93005; 93010; 94660; 96365; 96375; 99291; J0696; J1160; J1642; J1644; J1940; J3490; J7030